=== PATIENT | female | born 1985 | race Caucasian/White ===

== ENCOUNTER 2019-09-27 17:09 | Emergency (ER) | payer OTHER, SELFPAY ==
--- NOTE | 2019-09-27 17:17 | ED.BACK ---
HPI - Back Pain/Injury General Chief Complaint: Urogenital-Female Stated Complaint: Lower back pain Time Seen by Provider: 09/27/19 17:17 Source: patient and RN notes reviewed History of Present Illness HPI Narrative: Patient is a 34-year-old female presents the urgent care with complaints of bilateral low back pain and blood when she wipes. Patient states she is noticed it for the past 3 days. Denies any urinary symptoms such as frequency, urgency, pain with urination. Denies any fever, chills, nausea, vomiting, abdominal pain. 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 Patient states that since the tumor had been removed she has not had chronic urinary tract infections. Patient states she also has irregular periods and attributed the bleeding to a possible period. However, patient states that there is nothing on the tampons that she is using. No other acute complaints. No acute distress noted. Patient read the plan of care. Related Data Home Medications Medication Instructions Recorded Confirmed albuterol sulfate [ProAir HFA] 2 inh INHALATION 4-6XD PRN 08/02/19 08/02/19 clonazepam [Klonopin] 1 mg PO TID 08/02/19 08/02/19 venlafaxine [Effexor XR] 75 mg PO DAILY 08/02/19 08/02/19 Allergies Allergy/AdvReac Type Severity Reaction Status Date / Time Sulfa (Sulfonamide Allergy Unknown Hives Verified 09/27/19 17:22 Antibiotics) Review of Systems Review of Systems: Narrative: CONSTITUTIONAL: Denies fever, chills, or sweats. EYES: Denies visual changes, redness, or discharge. ENT: Denies rhinorrhea, congestion, sore throat, or otalgia. CARDIOVASCULAR: Denies chest pain, palpitations, or edema. RESPIRATORY: Denies cough or dyspnea. GASTROINTESTINAL: Denies abdominal pain, nausea, vomiting, or diarrhea. GENITOURINARY: Reports of blood when wiping SKIN: Denies rash or itching. MUSCULOSKELETAL: Reports of lateral low back pain NEUROLOGIC: Denies headache, numbness, or weakness. PMFSH Social History Social History Gender identity (if verbalized by the patient): Female Comments At the time of my signature, I reviewed and agree with the nursing past medical, surgical, social, and family history. There is no relevant family history pertinent to the patient complaint. Exam Narrative: Exam Narrative: GENERAL: This is a well-nourished, well-developed patient, in no apparent distress. HEAD: normocephalic, atraumatic. EYES: PERRL. Sclera clear/white. Vision is grossly intact. EARS: External ears normal NOSE: External nose normal with no obvious nasal discharge THROAT: Mucous membranes moist NECK: Neck supple CARDIOVASCULAR: Regular rate and rhythm without murmurs, gallops, or rubs. RESPIRATORY: Clear to auscultation. Breath sounds equal bilaterally. No wheezes, rales, or rhonchi. SKIN: warm, intact with no suspicious lesions or rash, good texture and turgor. NEURO: awake, alert, and oriented to person, place and time. There were no obvious focal neurologic abnormalities. EXTREMITIES: No clubbing, cyanosis, or edema. BACK: Nontender without deformity or crepitance. No flank tenderness. Course Vital Signs Vital signs: Vital Signs Temperature 99.9 F H 09/27/19 17:21 Pulse Rate 86 09/27/19 17:21 Respiratory Rate 16 09/27/19 17:21 Blood Pressure 139/89 09/27/19 17:21 Pulse Oximetry 98 09/27/19 17:21 Temperature 99.9 F H 09/27/19 17:21 Pulse Rate 86 09/27/19 17:21 Respiratory Rate 16 09/27/19 17:21 Blood Pressure 139/89 09/27/19 17:21 Pulse Oximetry 98 09/27/19 17:21 Reviewed MDM - Back Pain/Injury MDM Narrative Medical decision making narrative: Reviewed lab results with the patient. She is aware that urine analysis only showed a trace amount of blood without obvious infection. Explained to the patient that our facility is unable to co
[2019-09-27 17:21] VITALS: BP 139/89; PULSE 86; RESP 16; TEMP 37.7; O2SAT 98
== END 2019-09-27 17:35 | disposition home or self-care (01) ==
PROVIDERS: Emergency Provider Nurse Practitioner Family
DX: R31.9 Hematuria, unspecified (principal); J45.909 Unspecified asthma, uncomplicated; F41.9 Anxiety disorder, unspecified; F32.9 Major depressive disorder, single episode, unspecified
CPT/HCPCS: 81003; 99212; G0463

== ENCOUNTER 2019-10-09 03:21 | Emergency (ER) | payer SELFPAY ==
--- NOTE | ~2019-10-09 | XR_ITS ---
EXAMINATION: XR elbow LT min 3V, XR wrist LT min 3V, XR forearm LT 2V DATE: 10/09/2019 03:56 INDICATION: Posttraumatic bruising at the left elbow and pain at the left wrist. TECHNIQUE: 1. Anteroposterior, two oblique and lateral views of the elbow were obtained. 2. Frontal and lateral views of the left forearm were obtained. 3. PA, lateral, oblique and navicular views of the left wrist were obtained. COMPARISON: None. FINDINGS: Alignment is normal at the left wrist, forearm and elbow. No fracture. Joint spaces are normal. No le ft elbow joint effusion. Soft tissues are unremarkable. IMPRESSION: 1. Negative left wrist, forearm and elbow radiographs. Reviewed, dictated and finalized at location A. ITIONAL YEAST SUPERVISOR IMPRESSION: 1. Negative left wrist, forearm and elbow radiographs. IMPRESSION: 1. Negative left wrist, forearm and elbow radiographs.
[2019-10-09 03:26] VITALS: BP 131/84; PULSE 87; RESP 18; TEMP 36.1; O2SAT 100
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
== END 2019-10-09 04:20 | disposition home or self-care (01) ==
LOC: ANHED 04:04
PROVIDERS: Emergency Provider Emergency Medicine
DX: S66.912A Strain of unspecified muscle, fascia and tendon at wrist and hand level, left hand, initial encounter (principal); S63.502A Unspecified sprain of left wrist, initial encounter; S56.912A Strain of unspecified muscles, fascia and tendons at forearm level, left arm, initial encounter; W22.8XXA Striking against or struck by other objects, initial encounter; J45.909 Unspecified asthma, uncomplicated; F17.210 Nicotine dependence, cigarettes, uncomplicated
CPT/HCPCS: 73080; 73090; 73110; 99284; A9270

== ENCOUNTER 2020-03-01 13:14 | Emergency (ER) | payer OTHER, SELFPAY ==
--- NOTE | ~2020-03-01 | XR_ITS ---
EXAMINATION: XR hand LT min 3V DATE: 03/01/2020 13:33 INDICATION: Left hand injury TECHNIQUE: Posteroanterior, oblique and lateral views of the left hand were obtained. COMPARISON: None. FINDINGS: Oblique extra-articular fracture at the proximal diaphysis of the left fourth metacarpal with 3 mm po sterior displacement and approximately 10 degrees palmar angulation. There also appears to be a coupl e millimeter of proximal migration and overriding resulting in a similar degree of relative shortenin g of the metacarpal. No other fractures identified. Joint spaces are normal. Soft tissue swelling abo ut the hand. IMPRESSION: 1. Mildly displaced and angulated extra-articular fracture of the fourth metacarpal diaphysis. Reviewed, dictated and finalized at location A. IMPRESSION: 1. Mildly displaced and angulated extra-articular fracture of the fourth metaca rpal diaphysis.
[2020-03-01 13:15] VITALS: BP 123/83; PULSE 92; RESP 20; TEMP 36.9; O2SAT 100
--- NOTE | 2020-03-01 13:45 | ED.UPPEXIN ---
HPI - Extremity Injury (Upper) General Chief Complaint: Extremity Injury, Upper Stated Complaint: L hand injury Time Seen by Provider: 03/01/20 13:27 Source: patient Mode of arrival: ambulatory Limitations: no limitations History of Present Illness HPI narrative: This is a 34-year-old female presents emergency department for left hand injury last night. Reports she was moving some boxes off of the top shelf and 1 of them fell and landed on her left hand. Reports since she has had pain in the last 3 fingers and into the hand. Reports decreased range of motion due to pain. Denies numbness. Related Data Home Medications Medication Instructions Recorded Confirmed clonazepam [Klonopin] 1 mg PO TID 08/02/19 09/27/19 venlafaxine [Effexor XR] 75 mg PO DAILY 08/02/19 09/27/19 Allergies Allergy/AdvReac Type Severity Reaction Status Date / Time Sulfa (Sulfonamide Allergy Unknown Hives Verified 03/01/20 13:38 Antibiotics) Review of Systems Review of Systems: Narrative: CONSTITUTIONAL: Denies fever MUSCULOSKELETAL: Reports joint pain, and myalgia. NEUROLOGIC: Denies numbness All systems reviewed & are unremarkable except as noted in HPI and below PMFSH Past Medical History Medical History (Updated 03/01/20 @ 14:39 by Annie Stevenson PA-C) Asthma History of depression Surgical History Surgical History (Updated 10/09/19 @ 03:38 by Kenzie Landon MD) H/O oophorectomy Social History Social History (Updated 10/09/19 @ 03:38 by Kenzie Landon MD) Smoking status: Current every day smoker Tobacco type: cigarettes Alcohol intake: never Substance use: never Gender identity (if verbalized by the patient): Female Exam Narrative: Exam Narrative: GENERAL: Well-appearing, well-nourished, and in no acute distress. HEAD: Normocephalic, atraumatic. EYES: EOMI. EXTREMITIES: Moderate edema to the left third, fourth and fifth metacarpals. Decreased ROM in the left 3rd-5th fingers due to pain SKIN: Warm, dry, no rash. NEURO: No focal deficits. Alert and oriented x3. PSYCH: Normal mood and affect Course Consultations Consultation #1: Spoke with Dr. Bangura about patient work-up. Would like patient placed in an Braxton wrap and will follow-up with patient in clinic. Date: 03/01/20 Time: 14:40 Vital Signs Vital signs: Vital Signs Temperature 98.4 F 03/01/20 13:15 Pulse Rate 92 03/01/20 13:15 Respiratory Rate 20 03/01/20 13:15 Blood Pressure 123/83 03/01/20 13:15 Pulse Oximetry 100 03/01/20 13:15 Temperature 98.4 F 03/01/20 13:15 Pulse Rate 92 03/01/20 13:15 Respiratory Rate 03/01/20 13:15 Blood Pressure 123/83 03/01/20 13:15 Pulse Oximetry 100 03/01/20 13:15 MDM - Extremity Injury (Upper) MDM Narrative Medical decision making narrative: Patient presents the emergency department for left hand pain after an injury last night. Patient is neurovascularly intact. Left hand x-ray shows mildly displaced and angulated extra-articular fracture of the fourth metacarpal diaphysis. Spoke with Dr. Bangura about patient work-up. Would like patient placed in an Braxton wrap and will follow-up with patient in clinic. Patient was given warnings to return to the ER Imaging Data Radiologist's impression: ITS Impressions Hand X-Ray 03/01/20 13:43 IMPRESSION: 1. Mildly displaced and angulated extra-articular fracture of the fourth metacarpal diaphysis. Critical Care Time Critical Care Time Critical Care Time: No Discharge Plan Discharge Clinical Impression: Closed displaced fracture of fourth metacarpal bone of left hand Qualifiers: Encounter type: initial encounter Metacarpal location: shaft Qualified Code(s): S62.325A - Displaced fracture of shaft of fourth metacarpal bone, left hand, initial encounter for closed fracture Patient Disposition: Home, Self-Care Condition: Stable Instructions: Hand Fracture (ED) Additional Instructions: Return to th
[2020-03-01 15:06] VITALS: TEMP 36.9
== END 2020-03-01 15:08 | disposition home or self-care (01) ==
PROVIDERS: Emergency Provider Emergency Medicine
DX: S62.325A Displaced fracture of shaft of fourth metacarpal bone, left hand, initial encounter for closed fracture (principal); J45.909 Unspecified asthma, uncomplicated; F32.9 Major depressive disorder, single episode, unspecified; F17.210 Nicotine dependence, cigarettes, uncomplicated; W20.8XXA Other cause of strike by thrown, projected or falling object, initial encounter
CPT/HCPCS: 73130; 99284; A9270

== ENCOUNTER 2020-03-05 00:41 | Outpatient (CLI) | payer OTHER, SELFPAY ==
[2020-03-05 19:17] LABS: SARS-CoV-2 RNA PCR Negative
== END 2020-03-05 00:42 | disposition home or self-care (01) ==
LOC: ANHCOVIDDT 00:42
PROVIDERS: Visit Provider Plastic Surgery
DX: Z01.812 Encounter for preprocedural laboratory examination (principal); Z11.59 Encounter for screening for other viral diseases
CPT/HCPCS: 87635; C9803; U0003

== ENCOUNTER 2020-03-07 02:16 | Day surgery (SDC) | payer OTHER, SELFPAY ==
[2020-03-04 14:01] VITALS: BMI 36.9
--- NOTE | 2020-03-06 20:08 | HP_ITS ---
DATE OF SERVICE: 03/07/2020 PREOPERATIVE DIAGNOSIS: Displaced midshaft closed fracture of the left 4th metacarpal. HISTORY: The patient is 34. She is referred to me from [facility] where she was seen on 02/29/2020 after a box fell onto her left hand causing her oblique or spiral fracture of the shaft. She demonstrates some rotation in active flexion and we discussed that at some length. She is aware this fracture may well heal if left alone, and she may do fine, but she will probably have a rotatory deformity. She has 5 small children at her home and has an outside job as well and would like to get this fixed so that she can carry on with her multiple responsibilities. ALLERGIES: REVEALS SHE HAS AN ALLERGY TO SULFA. MEDICATIONS: Current medications include: 1. Effexor. 2. Klonopin. 3. Albuterol. PAST MEDICAL HISTORY: She had an exploratory laparotomy in 2000. She is a smoker and has some asthma. FAMILY HISTORY: Noncontributory. SOCIAL HISTORY: She lives in [place]. She works for [employer]. PHYSICAL EXAMINATION: GENERAL: She is alert, informative, cooperative, 5 feet 9 inches, 250-pound female. HEENT: Unremarkable. CHEST: Clear to auscultation. HEART: Regular rate and rhythm by palpation. ABDOMEN: Soft, nontender. EXTREMITIES: Reveals the tenderness and swelling and some slight rotation deformity of the left ring finger and on the left hand. ASSESSMENT: Displaced fracture, left 4th metacarpal. PLAN: Open reduction and internal fixation with screws under general anesthesia. Sharla I MT: Petrona FELIPE
[2020-03-07] VITALS (8 sets, daily range): BP systolic 131–152; BP diastolic 80–100; PULSE 50–92; RESP 12–22; TEMP 36.1–36.4; O2SAT 92–100
--- NOTE | ~2020-03-07 | XR_ITS ---
EXAMINATION: XR surgery orthopedic DATE: 03/07/2020 12:11 INDICATION: Right calf left fourth metacarpal fracture TECHNIQUE: 4 fluoroscopic spot images of the left hand were obtained during procedure performed by Dr Max Bangura. Radiologist was not present for the imaging or procedure. The amount of fluoroscopy time use d during this procedure was 1.1 minutes. COMPARISON: 03/01/2020 FINDINGS: Initial image is again seen a mildly displaced and angulated oblique extra articular fracture of the proximal to mid diaphysis of the left fourth metacarpal. Subsequent images demonstrate reduction of t he fracture to essentially anatomic alignment and fixation with 2 screws. Expected small amount of ga s at the operative bed. IMPRESSION: 1. Near-anatomic alignment post open reduction and screw fixation of a diaphyseal fracture of the lef t fourth metacarpal. Reviewed, dictated and finalized at location A. IMPRESSION: 1. Near-anatomic alignment post open reduction and screw fixation of a diaphyse al fracture of the left fourth metacarpal.
--- NOTE | 2020-03-07 07:21 | WPDHPUPDATE1 ---
History and Physical Update Update Date/Time: 03/07/20 07:21 History and Physical has been reviewed, including an updated exam of the patient. There are NO changes in the patient's condition. Risks, benefits, and alternatives have been discussed and questions answered. Patient agrees to proceed with procedure.
--- NOTE | 2020-03-07 08:09 | WPDANESEPPF ---
Anes - Initial Pre Proc Eval Procedure: Operation Date: 03/07/20 09:45 Proposed Procedures p Open Reduction Internal Fixation Left Fourth Metacarpal With Screws - Joni Bangura MD Date/Time: 03/07/20 08:09 Surgeon: Joni Bangura MD Pre Op Diagnosis: Fracture Left 4th Metacarpal Patient Data Age: 34 Gender: F Height: 5 ft 9 in Weight: 109.5 kg Allergies Allergy/AdvReac Type Severity Reaction Status Date / Time Sulfa (Sulfonamide Allergy Mild Hives Verified 03/07/20 07:54 Antibiotics) Home Medications Medication Instructions Recorded Confirmed Type albuterol sulfate 2 puff INHALATION QID PRN #8.5 gm 08/02/19 03/07/20 Rx clonazepam [Klonopin] 1 mg PO TID 08/02/19 03/07/20 History venlafaxine [Effexor XR] 75 mg PO DAILY 08/02/19 03/07/20 History hydrocodone-acetaminophen 1 tablet PO Q6H PRN #20 tablet 03/01/20 03/07/20 Rx Patient hx anesthesia problems: none Family hx anesthesia problems: none PMFSH Past Medical History Medical History Anxiety Asthma History of depression Surgical History Surgical History H/O oophorectomy Social History Social History Smoking packs per day: 0.5 Smoking cigarettes per day: 10.0 Years smoked: 20 Smoking pack-years: 10.00 Smoking status: Current every day smoker Tobacco type: cigarettes Alcohol intake: never Substance use: never Substance use type: marijuana Last use: 03/01/2020 Gender identity (if verbalized by the patient): Female Spiritual care concerns: No Anes - Eval Final PreProcedure Day of Procedure 03/07/20 08:09 Patient weight: obese Heart: regular rate and rhythm Lungs: decreased breath sounds Airway: Mallampati scale class II Neurological: alert and oriented Last oral intake: >/= 8 hours ASA classification: III Emergent: no Anesthetic plan: proceed Anesthesia type and monitoring: general LMA and standard monitoring Informed Consent: The patient's anesthetic plan and its attendant risks and benefits were discussed with the patient/family/POA. Questions were solicited and answers provided to the satisfaction of the patient/family/POA.
[2020-03-07] MEDS: LACTATED RINGERS 1,000 ML 30 ML IV CONT ×3 (08:15→12:51)
--- NOTE | 2020-03-07 09:56 | SUR.PREOP ---
Discussed delay with patient. Voices understanding. No needs at present.
--- NOTE | 2020-03-07 10:30 | WPDHPUPDATE1 ---
History and Physical Update Update Date/Time: 03/07/20 10:30 History and Physical has been reviewed, including an updated exam of the patient. There are NO changes in the patient's condition. Risks, benefits, and alternatives have been discussed and questions answered. Patient agrees to proceed with procedure.
[2020-03-07] MEDS: ceFAZolin 2 GM/D5W 50 ML 2 GM/50 ML BAG IVPB (10:49)
[2020-03-07] MEDS: BACITRACIN OINTMENT 15 GM TUBE 1 APPLIC TOPICAL (11:26)
[2020-03-07] MEDS: LIDO 1%/EPINEPHRINE 1:100,000 20 ML VIAL 10 ML INFILTRATE (11:26)
--- NOTE | 2020-03-07 12:23 | PM.OP ---
Procedure Note - Brief Procedure Note - Brief Date of procedure: 03/07/20 Pre-op diagnosis: Fracture Left 4th Metacarpal Post-op diagnosis: same Procedure performed: ORIF of left 4th metacarpal fx with 2 lag screws Implants: 1.3 x 8 mm and 1.5 x 10 mm lag screw from Mod Hand Set. Surgeon: Joni Bangura MD Estimated blood loss (mL): 5 Tourniquet time (min): 30 Drains: No Packing: No Pathology: none sent Complications: No immediate complications Condition: stable Disposition: PACU
--- NOTE | 2020-03-07 14:54 | PM.PROC ---
Procedure Note - Detailed Date of procedure: 03/07/20 Pre-op diagnosis: Fracture Left 4th Metacarpal Post-op diagnosis: same Procedure performed: open reduction with internal lag screw fixation of displaced left 4th metacarpal shaft fracture Description of procedure: the appropriate hand and location were marked on the patient in the holding area. She was taken to the operating room and placed supine on the operating table. A time-out was held and confirmed. She was administered general endotracheal anesthesia. The extremity was prepped and draped in the usual fashion. The C-arm was brought in and the fracture site identified and the skin marked accordingly for access incision. This area was infiltrated widely with 1% lidocaine with epinephrine. The tourniquet was inflated to 250 mmHg. The incision was made as marked and access was carried between extensor tendon slips to the 4th metacarpal. Care was taken to preserve cutaneous nerves. The periosteum was incised and the fracture fully visualized. The fracture was freed of clot material reduction was fairly easily reduced and a clamp was applied. 2 screws were placed perpendicular to the fracture line both screws were placed in lag screw fashion, the distal 1 is 1.3 by 8 mm, the proximal 1 is 1.5 x 10 mm. These are from the modular hand set. We will careful to ensure there was no rotational deformity. C-arm images were made to confirm the adequacy of screw placement. The wound was closed in several layers with 4-0 Monocryl suture. The tourniquet was released prior to wound closure. A bulky hand dressing was applied without splint leaving the fingers free to move. The patient had been given 2 g of Ancef preop. No additional local anesthetic was given. She was discharged with instructions in wound care and follow-up and supplied with a prescription for hydrocodone 5 14. Surgeon: Joni Bangura MD Multiple Spindle Screw Machine Operator: Amy Powers Estimated blood loss (mL): 5 Tourniquet time (min): 30 Drains: No Packing: No Pathology: none sent Complications: No immediate complications Condition: stable Disposition: PACU
== END 2020-03-07 14:30 | disposition home health service (06) ==
PROVIDERS: Visit Provider Plastic Surgery
PROC: (CPT 26615; principal; 2020-03-07 09:45)
DX: S62.325A Displaced fracture of shaft of fourth metacarpal bone, left hand, initial encounter for closed fracture (principal); W20.8XXA Other cause of strike by thrown, projected or falling object, initial encounter; J45.909 Unspecified asthma, uncomplicated; F41.9 Anxiety disorder, unspecified; F17.210 Nicotine dependence, cigarettes, uncomplicated; F12.90 Cannabis use, unspecified, uncomplicated; E66.9 Obesity, unspecified; Z68.35 Body mass index [BMI] 35.0-35.9, adult
CPT/HCPCS: 26615; A9270; C1713; J0131; J0690; J1100; J2250; J2405; J2704; J3010; J7120

== ENCOUNTER 2020-07-09 15:20 | Emergency (ER) | payer OTHER, SELFPAY ==
[2020-07-09 15:26] VITALS: BP 149/95; PULSE 89; RESP 16; O2SAT 98
--- NOTE | 2020-07-09 15:38 | ED.GENADULT ---
HPI - General Adult General Chief complaint: Upper Respiratory Infection Stated complaint: Ear Pain,Cough Time Seen by Provider: 07/09/20 15:38 Source: patient and RN notes reviewed Mode of arrival: ambulatory Limitations: no limitations History of Present Illness HPI narrative: 34-year-old female presents with complains of dry cough with chest congestion for the past 4 days. Symptoms increased over the past 48 hours with bilateral otalgia. Cold and flu medication and Tylenol (last this morning at 08:00) without relief. History of Asthma and Bronchitis. Constant dry cough with intermittent productive cough (white-brown phlegm). Rhinorrhea and nasal congestion. Denies sore throat. Denies drainage, decrease hearing, or tinnitus. Denies injury to ear. No high fevers, drooling, neck or throat swelling. No chest pain, or wheezing. No exacerbation factors. Denies nausea, vomiting, and abdominal pain. Tolerating liquids well. The patient reports she have not been diagnosed with COVID-19. The patient reports she is not waiting for the results of a COVID-19 lab test. The patient reports she do not have chills, weakness, or fatigue. The patient reports she do not have a worsening cough or shortness of breath. Denies chest pain. The patient reports she do not have any sore throat, loss of taste, and diarrhea. Denies recent traveling. Denies concerns for COVID-19 or exposures been home with limited outdoor exposure except for essential household needs and return home. At this time, patient is not suspected of having COVID-19. Some parts of this dictation were generated by voice recognition software and may contain typographical and/or grammatical inaccuracies. Related Data Home Medications Medication Instructions Recorded Confirmed clonazepam [Klonopin] 1 mg PO TID 08/02/19 03/07/20 venlafaxine [Effexor XR] 75 mg PO DAILY 08/02/19 03/07/20 albuterol sulfate INHALATION 07/09/20 budesonide-formoterol [Symbicort] INHALATION 07/09/20 dicyclomine mg 07/09/20 famotidine 07/09/20 fenofibrate mg 07/09/20 montelukast mg 07/09/20 Allergies Allergy/AdvReac Type Severity Reaction Status Date / Time Sulfa (Sulfonamide Allergy Mild Hives Verified 03/07/20 07:54 Antibiotics) Review of Systems Review of Systems: Narrative: CONSTITUTIONAL: Denies fever, chills, sweats. EYES: Denies visual changes, redness, discharge. ENT: Denies sore throat. Complains of rhinorrhea, congestion, bilateral otalgia. CARDIOVASCULAR: Denies chest pain, palpitations, edema. RESPIRATORY: Denies dyspnea, wheezing. Complains of chest congestion, dry cough with intermittent productive cough. GASTROINTESTINAL: Denies abdominal pain, nausea, vomiting, diarrhea. GENITOURINARY: Denies dysuria, hematuria, abnormal discharge. SKIN: Denies rash or itching. MUSCULOSKELETAL: Denies acute back pain, joint pain, or myalgia. NEUROLOGIC: Denies numbness or focal weakness. PSYCHIATRIC: Denies anxiety or depression. All systems reviewed & are unremarkable except as noted in HPI and below PMFSH Past Medical History Medical History (Updated 07/10/20 @ 00:00 by Anson Cummings) Anxiety Asthma Bronchitis History of depression Surgical History Surgical History (Updated 07/09/20 @ 19:46 by AVELINA Manriquez) H/O oophorectomy History of hand surgery Left March 2020 Family History Family History (Updated 07/09/20 @ 19:46 by AVELINA Manriquez) Father Pancreatic cancer Mother Hypertension Diabetes mellitus Social History Social History (Updated 07/12/20 @ 14:36 by AVELINA Manriquez) Smoking packs per day: 0.5 Smoking cigarettes per day: 10.0 Years smoked: 20 Smoking pack-years: 10.00 Smoking status: Former smoker Tobacco type: cigarettes Second hand tobacco smoke exposure: No Smoking end date: 05/30/20 Alcohol intake: never Substance use: never Substance use type: marijuana [place]
== END 2020-07-09 16:04 | disposition home or self-care (01) ==
PROVIDERS: Emergency Provider Nurse Practitioner Family; PCP Family Medicine
DX: J40 Bronchitis, not specified as acute or chronic (principal); H66.002 Acute suppurative otitis media without spontaneous rupture of ear drum, left ear; Z20.828 Contact with and (suspected) exposure to other viral communicable diseases; F17.210 Nicotine dependence, cigarettes, uncomplicated; F41.9 Anxiety disorder, unspecified; F32.9 Major depressive disorder, single episode, unspecified
CPT/HCPCS: 99213; G0463

== ENCOUNTER 2020-07-11 08:03 | Outpatient (NON) | payer OTHER, SELFPAY ==
[2020-07-12 00:44] LABS: SARS-CoV-2 RNA PCR Negative
== END 2020-07-11 08:04 ==
LOC: ANHCOVIDDT 08:04
PROVIDERS: PCP Family Medicine; Visit Provider Nurse Practitioner Family
DX: Z20.828 Contact with and (suspected) exposure to other viral communicable diseases (principal)
CPT/HCPCS: 87635; C9803; U0003

== ENCOUNTER 2020-12-22 09:43 | Emergency (ER) | payer OTHER, SELFPAY ==
[2020-12-22 09:55] VITALS: BP 137/95; PULSE 77; RESP 16; TEMP 37.4; O2SAT 99
--- NOTE | 2020-12-22 10:02 | ED.EAR ---
HPI - Ear Problem General Chief complaint: Ear Stated complaint: RIGHT EAR PAIN Time Seen by Provider: 12/22/20 10:02 Source: patient Mode of arrival: ambulatory Limitations: no limitations History of Present Illness HPI Narrative: Kristi Chicas is a 35 yo female with a PMH of asthma and GERD who comes to [facility] with complaints of sinus congestion and right ear pain. She was treated for respiratory symptoms by her primary care physician with steroids and an antibiotic that started 10 days ago and although she is about to complete the antibiotic and steroids is complaining of increased pain in her right ear Related Data Home Medications Medication Instructions Recorded Confirmed venlafaxine [Effexor XR] 75 mg PO DAILY 08/02/19 12/22/20 albuterol sulfate 90 mcg INHALATION DIRECTED 07/09/20 12/22/20 budesonide-formoterol [Symbicort] 160 inh INHALATION PRN 07/09/20 12/22/20 dicyclomine 20 mg PO QID 07/09/20 12/22/20 famotidine 20 mg PO DAILY 07/09/20 12/22/20 fenofibrate 160 mg PO HS 07/09/20 12/22/20 montelukast 10 mg PO DAILY 07/09/20 12/22/20 clonazepam 1 mg PO TID 12/22/20 12/22/20 Allergies Allergy/AdvReac Type Severity Reaction Status Date / Time Sulfa (Sulfonamide Allergy Mild Hives Verified 12/22/20 09:59 Antibiotics) Review of Systems Review of Systems: Narrative: CONSTITUTIONAL: Denies fever, chills, sweats. EYES: Denies visual changes, redness, discharge. ENT: Denies rhinorrhea, has congestion, sore throat, right otalgia. CARDIOVASCULAR: Denies chest pain, palpitations, edema. RESPIRATORY: Denies dyspnea, wheezing, cough GASTROINTESTINAL: Denies abdominal pain, nausea, vomiting, diarrhea. GENITOURINARY: Denies dysuria, hematuria, abnormal discharge SKIN: Denies rash or itching. NEUROLOGIC: Denies numbness, or focal weakness. PSYCHIATRIC: Denies anxiety or depression. [facility] Past Medical History Medical History Anxiety Asthma Bronchitis History of depression Surgical History Surgical History H/O oophorectomy History of hand surgery Left March 2020 Family History Family History Father Pancreatic cancer Mother Hypertension Diabetes mellitus Social History Social History (Updated 12/22/20 @ 10:17 by Myra Pearson CNP) Smoking packs per day: 0.5 Smoking cigarettes per day: 10.0 Years smoked: 20 Smoking pack-years: 10.00 Smoking status: Current every day smoker Tobacco type: cigarettes Second hand tobacco smoke exposure: No Smoking end date: 05/30/20 Alcohol intake: never Substance use: current Substance use type: marijuana Last use: 03/01/2020 Gender identity (if verbalized by the patient): Female Spiritual care concerns: No Comments At time of signature, I agree with nursing past medical, surgical, social and family history. There is no relevant family history pertinent to the presenting complaint. Blood pressure is elevated, she has intermittent high blood pressure and has been stopped from donating blood for the same reason, she must see her PCP this week Exam Narrative: Exam Narrative: GENERAL: This is a well-nourished, well-developed patient, in mild distress. HEAD: normocephalic, atraumatic. EYES: Sclera clear/white. Vision is grossly intact. EARS: External ears normal, auditory canals erythema with small amount drainage on L, TMs normal without perforation. Hearing grossly intact. NOSE: External nose normal without nasal discharge, nares without redness, no rhinorrhea. THROAT: Mucous membranes moist, posterior pharynx mild erythema NECK: Neck supple, non-tender CARDIOVASCULAR: Regular rate and rhythm without murmurs, gallops, or rubs. RESPIRATORY: Coarse to auscultation. Breath sounds equal bilaterally. No wheezes, rales, or rhonchi. GASTROINTESTINAL: Abdomen s
[2020-12-22 10:04] VITALS: BP 137/95; PULSE 77; RESP 16; TEMP 37.4; O2SAT 99
== END 2020-12-22 10:30 | disposition home or self-care (01) ==
PROVIDERS: Emergency Provider Nurse Practitioner; PCP Family Medicine
DX: H66.003 Acute suppurative otitis media without spontaneous rupture of ear drum, bilateral (principal); F17.210 Nicotine dependence, cigarettes, uncomplicated; J45.909 Unspecified asthma, uncomplicated; F41.9 Anxiety disorder, unspecified; F32.9 Major depressive disorder, single episode, unspecified
CPT/HCPCS: 99213; G0463

== ENCOUNTER 2021-02-08 15:02 | Emergency (ER) | payer OTHER, SELFPAY ==
[2021-02-08 15:15] VITALS: BP 139/87; PULSE 86; RESP 16; TEMP 37.6; O2SAT 98
--- NOTE | 2021-02-08 15:35 | ED.FEMALEGU ---
HPI - Female Genitourinary General Chief complaint: Urogenital-Female Stated complaint: Cyst on Vaginal Area Time Seen by Provider: 02/08/21 15:35 Source: patient Mode of arrival: ambulatory Limitations: no limitations History of Present Illness HPI Narrative: Kristi Chicas is a 35 yo female with a PMH of asthma, high cholesterol, anxiety, depression, comes [facility] with abscess to the right labial lip. States started a few days ago with this is a recurrence of her she has had multiple problems with abscesses in the genital area. Landed on using she razors over again. She is also allergic to Bactrim so she cannot get optimal treatment for these abscesses Discussed her throwing away razors after 1 use Related Data Home Medications Medication Instructions Recorded Confirmed venlafaxine [Effexor XR] 75 mg PO DAILY 08/02/19 12/22/20 albuterol sulfate 90 mcg INHALATION DIRECTED 07/09/20 12/22/20 budesonide-formoterol [Symbicort] 160 inh INHALATION PRN 07/09/20 12/22/20 dicyclomine 20 mg PO QID 07/09/20 12/22/20 famotidine 20 mg PO DAILY 07/09/20 12/22/20 fenofibrate 160 mg PO HS 07/09/20 12/22/20 montelukast 10 mg PO DAILY 07/09/20 12/22/20 clonazepam 1 mg PO TID 12/22/20 12/22/20 Allergies Allergy/AdvReac Type Severity Reaction Status Date / Time Sulfa (Sulfonamide Allergy Mild Hives Verified 12/22/20 09:59 Antibiotics) Review of Systems Review of Systems: Narrative: CONSTITUTIONAL: Denies fever, chills, sweats. EYES: Denies visual changes, redness, discharge. ENT: Denies rhinorrhea, congestion, sore throat, otalgia. CARDIOVASCULAR: Denies chest pain, palpitations, edema. RESPIRATORY: Denies dyspnea, wheezing, cough GASTROINTESTINAL: Denies abdominal pain, nausea, vomiting, diarrhea. GENITOURINARY: Denies dysuria, hematuria, abnormal discharge. Abscess to right labia SKIN: Denies rash or itching. NEUROLOGIC: Denies numbness, or focal weakness. PSYCHIATRIC: Denies anxiety or depression. [facility] Past Medical History Medical History Anxiety Asthma Bronchitis High cholesterol History of depression HTN (hypertension) Surgical History Surgical History H/O oophorectomy History of hand surgery Left March 2020 Family History Family History Father Pancreatic cancer Mother Hypertension Diabetes mellitus Social History Social History Smoking packs per day: 0.5 Smoking cigarettes per day: 10.0 Years smoked: 20 Smoking pack-years: 10.00 Smoking status: Current every day smoker Tobacco type: cigarettes Second hand tobacco smoke exposure: No Smoking end date: 05/30/20 Alcohol intake: never Substance use: current Substance use type: marijuana Last use: 03/01/2020 Gender identity (if verbalized by the patient): Female Spiritual care concerns: No Exam Narrative: Exam Narrative: GENERAL: This is a well-nourished, well-developed patient, in mild distress. HEAD: normocephalic, atraumatic. EYES: Sclera clear/white. Vision is grossly intact. EARS: External ears normal, . Hearing grossly intact. NOSE: External nose normal without nasal discharge, nares without redness, no rhinorrhea. THROAT: Mucous membranes moist, NECK: Neck supple, CARDIOVASCULAR: Regular rate and rhythm without murmurs, gallops, or rubs. RESPIRATORY: Clear to auscultation. Breath sounds equal bilaterally. No wheezes, rales, or rhonchi. GASTROINTESTINAL: Abdomen soft, non-tender, SKIN: warm, intact with abscess to right labial lip with swelling,tender, indurated but not fluctuant; has white pustule NEURO: awake, alert, and oriented to person, place and time. There were no obvious focal neurologic abnormalities. Steady gait EXTREMITIES: Normal range of motion. BACK: Nontender
--- NOTE | 2021-02-08 15:56 | ED.SKABFB ---
HPI - Skin/Abscess/Foreign Bdy General Chief complaint: Urogenital-Female Stated complaint: Cyst on Vaginal Area Time Seen by Provider: 02/08/21 15:35 Source: patient Mode of arrival: ambulatory Limitations: no limitations History of Present Illness HPI narrative: Kristi Chicas is a 35-year-old female with a history of hypertension, seasonal allergies, depression, GERD, who comes to [facility] with complaints of a vaginal abscess that has been getting more sore for the last 4 to 5 days there is one small area that has a sullivan in the vaginal area Related Data Home Medications Medication Instructions Recorded Confirmed venlafaxine [Effexor XR] 75 mg PO DAILY 08/02/19 12/22/20 albuterol sulfate 90 mcg INHALATION DIRECTED 07/09/20 12/22/20 budesonide-formoterol [Symbicort] 160 inh INHALATION PRN 07/09/20 12/22/20 dicyclomine 20 mg PO QID 07/09/20 12/22/20 famotidine 20 mg PO DAILY 07/09/20 12/22/20 fenofibrate 160 mg PO HS 07/09/20 12/22/20 montelukast 10 mg PO DAILY 07/09/20 12/22/20 clonazepam 1 mg PO TID 12/22/20 12/22/20 Allergies Allergy/AdvReac Type Severity Reaction Status Date / Time Sulfa (Sulfonamide Allergy Mild Hives Verified 12/22/20 09:59 Antibiotics) Review of Systems Review of Systems: Narrative: CONSTITUTIONAL: Denies fever, chills, sweats. EYES: Denies visual changes, redness, discharge. ENT: Denies rhinorrhea, congestion, sore throat, otalgia. CARDIOVASCULAR: Denies chest pain, palpitations, edema. RESPIRATORY: Denies dyspnea, wheezing, cough GASTROINTESTINAL: Denies abdominal pain, nausea, vomiting, diarrhea. GENITOURINARY: Denies dysuria, hematuria, abnormal discharge; labial abscess SKIN: Denies rash or itching. NEUROLOGIC: Denies numbness, or focal weakness. PSYCHIATRIC: Denies anxiety or depression. [facility] Past Medical History Medical History Anxiety Asthma Bronchitis High cholesterol History of depression HTN (hypertension) Surgical History Surgical History H/O oophorectomy History of hand surgery Left March 2020 Family History Family History Father Pancreatic cancer Mother Hypertension Diabetes mellitus Social History Social History Smoking packs per day: 0.5 Smoking cigarettes per day: 10.0 Years smoked: 20 Smoking pack-years: 10.00 Smoking status: Current every day smoker Tobacco type: cigarettes Second hand tobacco smoke exposure: No Smoking end date: 05/30/20 Alcohol intake: never Substance use: current Substance use type: marijuana Last use: 03/01/2020 Gender identity (if verbalized by the patient): Female Spiritual care concerns: No Comments At time of signature, I agree with nursing past medical, surgical, social and family history. There is no relevant family history pertinent to the presenting complaint. Exam Narrative: Exam Narrative: GENERAL: This is a well-nourished, well-developed patient, in mild distress. HEAD: normocephalic, atraumatic. EYES: Sclera clear/white. Vision is grossly intact. EARS: External ears normal, . Hearing grossly intact. NOSE: External nose normal without nasal discharge, nares without redness, no rhinorrhea. THROAT: Mucous membranes moist, NECK: Neck supple, CARDIOVASCULAR: Regular rate and rhythm without murmurs, gallops, or rubs. RESPIRATORY: Clear to auscultation. Breath sounds equal bilaterally. No wheezes, rales, or rhonchi. GASTROINTESTINAL: Abdomen soft, non-tender, SKIN: warm, intact with no suspicious lesions or rash, good texture and turgorGU: 2 x 2 abscess to right labial lip with swelling,tender, indurated but not fluctuant; has white pustule NEURO: awake, alert, and oriented to person, place and time. There were no obvious focal neurologic abno
--- NOTE | 2021-02-08 16:31 | PC.NURSE ---
1545- provider used an 18 gauge needle to poke wound and squeezed out some pus and blood. pt tolerated well.
== END 2021-02-08 16:14 | disposition home or self-care (01) ==
PROVIDERS: Emergency Provider Nurse Practitioner; PCP Family Medicine
DX: N76.4 Abscess of vulva (principal); F17.210 Nicotine dependence, cigarettes, uncomplicated; J45.909 Unspecified asthma, uncomplicated; E78.00 Pure hypercholesterolemia, unspecified; I10 Essential (primary) hypertension; F41.9 Anxiety disorder, unspecified; F32.9 Major depressive disorder, single episode, unspecified
CPT/HCPCS: 10160; 99213; G0463

== ENCOUNTER 2022-08-26 03:37 | Emergency (ER) | payer OTHER, SELFPAY ==
[2022-08-26 03:40] VITALS: BP 159/102; PULSE 76; RESP 18; TEMP 36.9; O2SAT 98
--- NOTE | 2022-08-26 03:52 | ED.EAR ---
HPI - Ear Problem General Chief complaint: Ear Stated complaint: R Ear Ache Source: patient and RN notes reviewed Mode of arrival: ambulatory Limitations: no limitations History of Present Illness HPI Narrative: Patient states that she went to her PCP yesterday had some swelling in her right ear canal. She was diagnosed with the otitis externa and surrounding infection. She is given azithromycin but has only taken 1 dose. She is also on some Cortisporin drops for ear. She says the swelling has gotten worse since she was seen in the office yesterday and is more painful. She denies any fever chills. She is also concerned that she is allergic to sulfa in it says that it is sulfate your drop. I explained that it is polymyxin sulfate and not sulfamethoxazole Complaint: ear pain Location: right ear Duration: constant Severity: moderate Relieving factors: nothing Exacerbating factors: chewing and palpation Discharge from ear: Reports no Associated symptoms ear: external ear tenderness and ear swelling Treatment prior to arrival: eardrops Related Data Home Medications Medication Instructions Recorded Confirmed venlafaxine 75 mg capsule,extended 75 mg PO DAILY 08/02/19 08/26/22 release 24 hr (Effexor XR) albuterol sulfate 90 mcg/actuation 90 mcg inhalation DIRECTED 07/09/20 08/26/22 aerosol inhaler clonazepam 1 mg tablet 1 mg PO TID 12/22/20 08/26/22 lisinopril 5 mg tablet 5 mg PO DAILY 08/26/22 08/26/22 trazodone 50 mg tablet 50 mg PO HS PRN Insomnia 08/26/22 08/26/22 Allergies Allergy/AdvReac Type Severity Reaction Status Date / Time Sulfa (Sulfonamide Allergy Mild Hives Verified 08/25/22 10:20 Antibiotics) Review of Systems Review of Systems: All systems reviewed & are unremarkable except as noted in HPI and below PMFSH Past Medical History Medical History Anxiety Asthma Bronchitis High cholesterol History of depression HTN (hypertension) Surgical History Surgical History H/O oophorectomy History of hand surgery Left March 2020 Family History Family History Father Pancreatic cancer Mother Hypertension Diabetes mellitus Social History Social History Smoking packs per day: 0.5 Smoking cigarettes per day: 10.0 Years smoked: 20 Smoking pack-years: 10.00 Smoking status: Current every day smoker Tobacco type: cigarettes Second hand tobacco smoke exposure: No Smoking end date: 05/30/20 Alcohol intake: never Substance use: current Substance use type: marijuana Last use: 03/01/2020 Gender identity (if verbalized by the patient): Female Spiritual care concerns: No Exam Const: General: healthy appearing, no acute distress and alert Nutritional Appearance: well nourished and obese Orientation/consciousness: patient oriented x3 Limitations: no limitations HENMT: Head: normal to inspection Ears: TM normal on the right, Abnormal EAC present erythema on the right, edema on the right and EAC tenderness on the right and diffuse; no otic discharge, external ear abnormal pain with movement of external ear on the right and diffuse, periauricular adenopathy on the right (anterior) and other ( soft tissue swelling anterior to the right ear. along the parotid gland) Eyes: Conjunctivae: conjunctivae normal Pupils: Equal, round and reactive pupils present EOM: EOMs intact bilaterally Neck: Neck: normal visual inspection Resp: Effort & Inspection: normal respiratory effort Auscultation: clear to auscultation bilaterally Cardio: Rate: regular rate Rhythm: regular rhythm GI: GI Palp: Yes Soft to palpation and No Tenderness to palpation present (GI) Auscultation: normal bowel sounds Back/Spine/Pelvis: Cervical Spine: cervical ROM normal Thorac
[2022-08-26] MEDS: KETOROLAC 30 MG/ML VIAL (*BKC) IM (04:03)
[2022-08-26 04:15] VITALS: BP 152/98; PULSE 70; RESP 18; TEMP 36.6; O2SAT 99
== END 2022-08-26 04:22 | disposition home or self-care (01) ==
PROVIDERS: Emergency Provider Emergency Medicine; PCP Nurse Practitioner Family
DX: H60.311 Diffuse otitis externa, right ear (principal); I10 Essential (primary) hypertension; J45.909 Unspecified asthma, uncomplicated; F41.9 Anxiety disorder, unspecified; F32.A Depression, unspecified; Z79.51 Long term (current) use of inhaled steroids; F12.90 Cannabis use, unspecified, uncomplicated; Z87.891 Personal history of nicotine dependence
CPT/HCPCS: 96372; 99283; J1885

== ENCOUNTER 2022-08-27 14:27 | Outpatient (CLI) | payer OTHER, SELFPAY ==
[2022-08-27 14:45] LABS: Basophils Absolute Auto 0.04 K/mm3 (0.00-0.10); Basophils Percent Auto 0.4 % (0.0-1.0); Eosinophils Absolute Auto 0.09 K/mm3 (0.02-0.50); Eosinophils Percent Auto 0.8 % (1.0-6.0); Hematocrit 38.3 % (35.0-49.0); Hemoglobin 12.6 g/dL (12.0-15.0); Immature Granulocyte Absolute 0.07 K/mm3 (0.00-0.00); Immature Granulocyte Percent A 0.6 % (0.0-0.0); Lymphocytes Absolute Auto 1.13 K/mm3 (1.10-4.50); Mean Corpuscular HGB Conc 32.9 g/dL (32.0-36.0); Mean Corpuscular Hemoglobin 29.2 pg (27.0-31.0); Mean Corpuscular Volume 88.9 fL (78.0-102.0); Mean Platelet Volume 11.6 fl (9.2-11.8); Monocytes Absolute Auto 0.43 K/mm3 (0.10-0.90); Monocytes Percent Auto 3.8 % (2.0-11.0); Neutrophils Absolute Auto 9.6 K/mm3 (1.7-7.2); Neutrophils Percent Auto 84.4 % (50.0-70.0); Platelet Count Result 190 K/mm3 (150-420); Red Blood Count 4.31 M/mm3 (4.20-5.40); Red Cell Distribution Width 13.8 % (11.6-14.4); White Blood Count 11.3 K/mm3 (4.8-10.8)
[2022-08-27 15:17] LABS: Alanine Aminotransferase 18 U/L (14-59); Albumin Level 3.4 g/dL (3.4-5.0); Alkaline Phosphatase 79 U/L (46-116); Anion Gap 6 mmol/L (8-16); Aspartate Amino Transferase < 10 U/L (15-37); Bilirubin,Total 0.2 mg/dL (0.00-1.00); Blood Urea Nitrogen 18 mg/dL (7-18); Calcium 8.3 mg/dL (8.5-10.1); Carbon Dioxide 27 mmol/L (21-32); Chloride 106 mmol/L (98-108); Cholesterol 157 mg/dL (0-200); Estimated Glomerular Filt Rate > 60; Free T4 Free Thyroxine 0.75 ng/dL (0.76-1.46); Glucose 120 mg/dL (70-99); HDL Direct 47 mg/dL (40-60); LDL Cholesterol Calculated 95 mg/dL (<130); Osmolality Calculated 290 mOsm/kg (285-295); Potassium 4.6 mmol/L (3.5-5.1); Sodium 139 mmol/L (136-145); Thyroid Stimulating Hormone 0.41 uIU/mL (0.36-3.74); Total Protein 6.9 g/dL (6.4-8.2); Triglycerides 77 mg/dL (0-150)
[2022-08-27 16:07] LABS: Pregnancy On Board Control Positive; Urine Pregnancy Test Negative
[2022-08-29 15:14] LABS: Hepatitis A Antibody IgM Nonreactive; Hepatitis B Core Antibody Nonreactive (Nonreactive); Hepatitis B Surface Antigen Nonreactive (Nonreactive); Hepatitis C Signal to Cutoff 0.01 ratio (<1.00); Hepatitis C Virus Antibody Nonreactive (Nonreactive)
== END 2022-08-27 14:28 | disposition home or self-care (01) ==
LOC: CHSLAB 14:28
PROVIDERS: PCP Nurse Practitioner Family; Visit Provider Nurse Practitioner Family
DX: Z00.00 Encounter for general adult medical examination without abnormal findings (principal); J40 Bronchitis, not specified as acute or chronic; I10 Essential (primary) hypertension; E78.00 Pure hypercholesterolemia, unspecified; Z86.59 Personal history of other mental and behavioral disorders
CPT/HCPCS: 36415; 80053; 80061; 80074; 81025; 83036; 84439; 84443; 85025

== ENCOUNTER 2022-08-28 15:49 | Outpatient (CLI) | payer OTHER, SELFPAY ==
[2022-08-28 16:36] LABS: Strep Group A RT-PCR NOT DETECTED (Negative)
[2022-08-28 16:37] LABS: Influenza A QL RT-PCR Negative (Negative); Influenza B QL RT-PCR Negative (Negative); SARS-CoV-2 RNA PCR Negative (Negative)
== END 2022-08-28 15:50 | disposition home or self-care (01) ==
LOC: CHSLAB 15:51
PROVIDERS: PCP Nurse Practitioner Family; Visit Provider Nurse Practitioner Family
DX: J45.40 Moderate persistent asthma, uncomplicated (principal); Z20.822 Contact with and (suspected) exposure to COVID-19
CPT/HCPCS: 87636; 87651

== ENCOUNTER 2022-09-04 15:00 | Outpatient (CLI) | payer OTHER, SELFPAY ==
[2022-09-04 15:18] LABS: Basophils Percent Auto 0.7 % (0.0-1.0); Eosinophils Absolute Auto 0.43 K/mm3 (0.02-0.50); Eosinophils Percent Auto 3.2 % (1.0-6.0); Hematocrit 41.4 % (35.0-49.0); Hemoglobin 13.6 g/dL (12.0-15.0); Immature Granulocyte Absolute 0.19 K/mm3 (0.00-0.00); Immature Granulocyte Percent A 1.4 % (0.0-0.0); Lymphocytes Absolute Auto 2.51 K/mm3 (1.10-4.50); Lymphocytes Percent Auto 18.8 % (18.0-42.0); Mean Corpuscular HGB Conc 32.9 g/dL (32.0-36.0); Mean Corpuscular Hemoglobin 28.9 pg (27.0-31.0); Mean Corpuscular Volume 88.1 fL (78.0-102.0); Mean Platelet Volume 11.3 fl (9.2-11.8); Monocytes Absolute Auto 1.04 K/mm3 (0.10-0.90); Monocytes Percent Auto 7.8 % (2.0-11.0); Neutrophils Absolute Auto 9.1 K/mm3 (1.7-7.2); Neutrophils Percent Auto 68.1 % (50.0-70.0); Platelet Count Result 224 K/mm3 (150-420); Red Cell Distribution Width 13.9 % (11.6-14.4); White Blood Count 13.4 K/mm3 (4.8-10.8)
[2022-09-04 15:25] LABS: Add Urine Microscopic? NO; Appearance Urine Clear (Clear); Bilirubin Urine Negative (Negative); Blood Urine Negative (Negative); Color Urine Light Yellow (Yellow); Glucose Urine UA Negative (Negative); Ketones Urine Negative (Negative); Leukocyte Esterase Ur Negative LEU/UL (Negative); Nitrate Urine Negative (Negative); Protein Urine Negative (Negative)
[2022-09-04 15:56] LABS: NT Pro B Type Natriuretic Pept 69 pg/mL (0-125)
== END 2022-09-04 15:01 | disposition home or self-care (01) ==
LOC: CHSLAB 15:01
PROVIDERS: PCP Nurse Practitioner Family; Visit Provider Nurse Practitioner Family
DX: R10.2 Pelvic and perineal pain (principal); R06.01 Orthopnea
CPT/HCPCS: 36415; 81003; 83880; 85025

== ENCOUNTER 2022-09-22 16:23 | Outpatient (NON) | payer OTHER, SELFPAY | END 2022-09-22 16:24 | disposition home or self-care (01) | PROVIDERS: Visit Provider Nurse Practitioner Family | DX: Z91.89 Other specified personal risk factors, not elsewhere classified (principal) | CPT/HCPCS: 87070; 87491; 87591; 87624; 88175; G0145 ==

== ENCOUNTER 2022-09-29 09:52 | Outpatient (CLI) | payer OTHER, SELFPAY ==
[2022-09-29 11:36] LABS: HIV 1 P24 AG Negative (Negative); HIV 1/2 AB Negative (Negative)
--- NOTE | 2022-09-29 14:44 | P.PCNPFT_ITS ---
PFT Procedure Performed PFT Procedure Performed Spirometry with Pre/Post Bronchodilator Plethysmography (Lung Vol) Diffusing Cap (DLCO) PFT Interpretation DOS: 09/29/2022 REQUESTING: Treva Martell APRN REASON FOR TESTING: history of smoking PULMONARY FUNCTION TESTS Results are reliable and reproducible. Spirometry: Pre-bronchodilator FEV1 is 3.67 L, 116%, normal range. Pre- bronchodilator FVC is 4.64 L, 120%, normal. FEV1/FVC ratio is 79%, normal. After bronchodilator administration, there is 4% increase in the FVC, 4.83 L. There is a 7% increase in the FEV1, 3.93 L. These are not statistically significant responses, per ATS standards. Lung volumes: Total lung capacity is 5.89 L, 97% predicted, normal. Residual volume 1.23 L, 60%, normal. RV/TLC is 21%, not elevated. Airway resistance 151%. Diffusion: DLCO is 24.1, 77%, normal. DLCO/VA is 4.06, 92%. Flow volume loop: Unremarkable IMPRESSION: This study shows normal spirometry without response to bronchodilator, normal lung volumes and normal diffusion. Lack of response to bronchodilator should not preclude use if clinically indicated. Vilma Howard MD
[2022-10-02 16:34] LABS: RPR Screen Non-Reactive (Non-Reactive)
[2022-10-02 20:48] LABS: HSV 1 IgM Screen Negative (Negative); HSV 2 IgM Screen Negative (Negative)
[2022-10-03 10:58] LABS: Hepatitis C Signal to Cutoff 0.02 ratio (<1.00); Hepatitis C Virus Antibody Nonreactive (Nonreactive)
== END 2022-09-29 09:53 | disposition home or self-care (01) ==
LOC: CHSCARD 09:53
PROVIDERS: PCP Nurse Practitioner Family; Visit Provider Nurse Practitioner Family
DX: Z91.89 Other specified personal risk factors, not elsewhere classified (principal)
CPT/HCPCS: 36415; 86592; 86695; 86696; 86703; 86803; 94060; 94726; 94729

== ENCOUNTER 2022-10-01 09:29 | Emergency (ER) | payer OTHER, SELFPAY ==
[2022-10-01 09:29] VITALS: BP 139/92; PULSE 85; RESP 20; TEMP 37.1; O2SAT 97
[2022-10-01 10:11] LABS: Strep Group A RT-PCR NOT DETECTED (Negative)
[2022-10-01 10:18] LABS: Influenza A QL RT-PCR Negative (Negative); Influenza B QL RT-PCR Negative (Negative); SARS-CoV-2 RNA PCR Negative (Negative)
--- NOTE | 2022-10-01 10:19 | ED.FEVER ---
HPI - Fever General Chief Complaint: Upper Respiratory Infection Stated Complaint: COLD AND FLU SYMPTOMS Time Seen by Provider: 10/01/22 09:32 Source: patient Mode of arrival: ambulatory Limitations: no limitations History of Present Illness HPI Narrative: this is a 37-year-old female with history of asthma presents with a 2 day history of cough congestion with low-grade fevers currently no shortness of breath no audible wheezing no chest pain or pressure no tightness in her chest, can not complete full sentences, there is no abdominal pain no dysuria no flank pain. MD elicited complaint: fever Onset (ago): day(s) Related Data Home Medications Medication Instructions Recorded Confirmed venlafaxine 75 mg capsule,extended 75 mg PO DAILY 08/02/19 10/01/22 release 24 hr (Effexor XR) clonazepam 1 mg tablet 1 mg PO TID 12/22/20 10/01/22 trazodone 50 mg tablet 50 mg PO HS PRN Insomnia 08/26/22 10/01/22 Allergies Allergy/AdvReac Type Severity Reaction Status Date / Time Sulfa (Sulfonamide Allergy Mild Hives Verified 09/22/22 15:23 Antibiotics) Review of Systems Review of Systems: All systems reviewed & are unremarkable except as noted in HPI and below PMFSH Past Medical History Medical History Anxiety Asthma Bronchitis High cholesterol History of depression HTN (hypertension) Surgical History Surgical History H/O oophorectomy History of hand surgery Left March 2020 Family History Family History Father Pancreatic cancer Mother Hypertension Diabetes mellitus Social History Social History Smoking packs per day: 0.5 Smoking cigarettes per day: 10.0 Years smoked: 20 Smoking pack-years: 10.00 Smoking status: Current every day smoker Tobacco type: cigarettes Second hand tobacco smoke exposure: No Smoking end date: 05/30/20 Alcohol intake: never Substance use: current Substance use type: marijuana Last use: 03/01/2020 Gender identity (if verbalized by the patient): Female Spiritual care concerns: No Exam Const: General: healthy appearing Nutritional Appearance: well nourished Orientation/consciousness: patient oriented x3 Limitations: no limitations HENMT: Head: normal to inspection Face and sinus: normal facial exam Mouth: Yes Normal oral and palatal mucosa present Eyes: Conjunctivae: conjunctivae normal Pupils: Equal, round and reactive pupils present EOM: EOMs intact bilaterally Neck: Neck: normal visual inspection, no lymphadenopathy and no meningeal signs Chest: Chest palpation & inspection: normal inspection of the chest Resp: Effort & Inspection: normal respiratory effort Cardio: Rate: regular rate Rhythm: regular rhythm GI: GI Palp: Yes Soft to palpation : General: Yes bladder normal to palpation Urinary Catheter: Urinary Catheter: patent and draining Back/Spine/Pelvis: Back: no CVA tenderness Skin: General skin exam: normal color Rashes: no rashes Wounds: no wounds Neuro: General: patient oriented x3 Cranial nerves: Yes Nystagmus not present Speech: normal speech Psych: Appearance: grossly normal Mental Status: mental status grossly normal Course [employer] Physician Supervision Patient had a rapid strep that was negative, COVID and influenza negative will send prescriptions antibiotics and steroid to her pharmacy. Vital Signs Vital signs: Vital Signs Temperature 37.1 C 10/01/22 09:29 Pulse Rate 85 10/01/22 09:29 Respiratory Rate 20 10/01/22 09:29 Blood Pressure 139/92 H 10/01/22 09:29 Pulse Oximetry 97 10/01/22 09:29 Oxygen Delivery Room Air 10/01/22 09:29 Temperature 36.9 C 10/01/22 11:45 Pulse Rate 84 10/01/22 11:45 Respiratory Rate 20 10/01/22 11:45 Blood P
[2022-10-01 11:45] VITALS: BP 134/84; PULSE 84; RESP 20; TEMP 36.9; O2SAT 97
== END 2022-10-01 11:49 | disposition home or self-care (01) ==
PROVIDERS: Emergency Provider Emergency Medicine; PCP Nurse Practitioner Family
DX: J39.8 Other specified diseases of upper respiratory tract (principal); J45.20 Mild intermittent asthma, uncomplicated; I10 Essential (primary) hypertension; J45.909 Unspecified asthma, uncomplicated; F41.9 Anxiety disorder, unspecified; F32.A Depression, unspecified; F17.210 Nicotine dependence, cigarettes, uncomplicated; Z20.822 Contact with and (suspected) exposure to COVID-19
CPT/HCPCS: 87636; 87651; 99283

== ENCOUNTER 2023-09-19 11:51 | Emergency (ER) | payer OTHER, SELFPAY ==
[2023-09-19 11:51] VITALS: BP 154/99; PULSE 79; RESP 17; TEMP 36.6; O2SAT 98
--- NOTE | 2023-09-19 12:26 | ED.GENADULT ---
HPI - General Adult General Chief complaint: Upper Respiratory Infection Stated complaint: cold symptoms. Time Seen by Provider: 09/19/23 12:09 History of Present Illness HPI narrative: this is a 38-year-old female with history asthma presenting for a cough. Patient had a viral illness 2 and half weeks ago that included headaches body aches and fevers. Her condition improved but she still had a lingering cough. The cough is dry, worse at night. Patient denies current fever chills chest pain difficulty breathing abdominal pain nausea vomiting diarrhea. Patient states she has had this in the past and is typically relieved by a course of prednisone. Related Data Home Medications Medication Instructions Recorded Confirmed venlafaxine 75 mg capsule,extended 75 mg PO DAILY 08/02/19 09/19/23 release 24 hr (Effexor XR) clonazepam 1 mg tablet 1 mg PO TID 12/22/20 09/19/23 trazodone 50 mg tablet 50 mg PO HS PRN Insomnia 08/26/22 09/19/23 Allergies Allergy/AdvReac Type Severity Reaction Status Date / Time Sulfa (Sulfonamide Allergy Mild Hives Verified 09/19/23 11:56 Antibiotics) [facility] Past Medical History Medical History Anxiety Asthma Bronchitis High cholesterol History of depression HTN (hypertension) Surgical History Surgical History H/O oophorectomy History of hand surgery Left March 2020 Family History Family History Father Pancreatic cancer Mother Hypertension Diabetes mellitus Social History Social History Smoking packs per day: 0.5 Smoking cigarettes per day: 10.0 Years smoked: 20 Smoking pack-years: 10.00 Smoking status: Current every day smoker Tobacco type: cigarettes Second hand tobacco smoke exposure: No Smoking end date: 05/30/20 Alcohol intake: never Substance use: current Substance use type: marijuana Last use: 03/01/2020 Gender identity (if verbalized by the patient): Female Spiritual care concerns: No Exam Narrative: APPEARANCE: No apparent distress. Head: atraumatic. tympanic membranes normal, throat normal. EYES: EOMI, NOSE: Atraumatic NECK: Trachea midline RESPIRATORY: No increased rate of breathing , CTAB, speaking in full sentences CARDIOVASCULAR: RRR, ABDOMINAL: Non-distended MUSCULOSKELETAl: No obvious deformities NEURO: Alert. Moving 4/4 extremities SKIN:: Warm, dry. Normal color PSYCHIATRIC: Normal affect Course Vital Signs Vital signs: Vital Signs Temperature 97.9 F 09/19/23 11:51 Pulse Rate 79 09/19/23 11:51 Respiratory Rate 17 09/19/23 11:51 Blood Pressure 154/99 H 09/19/23 11:51 Pulse Oximetry 98 09/19/23 11:51 Oxygen Delivery Room Air 09/19/23 11:51 Temperature 97.9 F 09/19/23 11:51 Pulse Rate 79 09/19/23 11:51 Respiratory Rate 17 09/19/23 11:51 Blood Pressure 154/99 H 09/19/23 11:51 Pulse Oximetry 98 09/19/23 11:51 Oxygen Delivery Room Air 09/19/23 11:51 Medical Decision Making [facility] Narrative Medical decision making narrative: -Course: 38-year-old female presenting 2 weeks after a viral illness with a persistent cough. She is well-appearing, VSS, with a normal lung exam. discussed getting viral swabs and a chest x-ray with patient and she declined stating she would just like to get the steroid and then get out here. patient will be given a short course of steroids and an inhaler. Discharged with return precautions. -DDX includes but is not limited to: Pneumonia, viral illness, bronchitis, post viral cough, asthma exacerbation, GERD -Co-morbidities complicating care: anxiety, asthma -Social determinants of health: unemployed, lives with her mom -Interventions: 10 mg dexamethasone -Shared decision making / Disposition: discharged -RX
[2023-09-19 13:28] VITALS: BP 164/98; PULSE 72; RESP 17; TEMP 36.6; O2SAT 100
== END 2023-09-19 13:28 | disposition home or self-care (01) ==
PROVIDERS: Emergency Provider Emergency Medicine; PCP Nurse Practitioner Family
DX: R05.9 Cough, unspecified (principal); I10 Essential (primary) hypertension; F41.9 Anxiety disorder, unspecified; F32.A Depression, unspecified; F17.210 Nicotine dependence, cigarettes, uncomplicated; Z79.899 Other long term (current) drug therapy
CPT/HCPCS: 96372; 99283; J1100

== ENCOUNTER 2023-09-23 14:33 | Outpatient (CLI) | payer OTHER, SELFPAY ==
[2023-09-23 14:46] LABS: Basophils Absolute Auto 0.06 K/mm3 (0.00-0.10); Basophils Percent Auto 0.5 % (0.0-1.0); Eosinophils Absolute Auto 0.06 K/mm3 (0.02-0.50); Eosinophils Percent Auto 0.5 % (1.0-6.0); Hemoglobin 13.7 g/dL (12.0-15.0); Immature Granulocyte Absolute 0.14 K/mm3 (0.00-0.00); Immature Granulocyte Percent A 1.2 % (0.0-0.0); Lymphocytes Absolute Auto 1.37 K/mm3 (1.10-4.50); Lymphocytes Percent Auto 11.8 % (18.0-42.0); Mean Corpuscular HGB Conc 31.9 g/dL (32.0-36.0); Mean Corpuscular Volume 87.8 fL (78.0-102.0); Mean Platelet Volume 11.6 fl (9.2-11.8); Monocytes Percent Auto 2.6 % (2.0-11.0); Neutrophils Absolute Auto 9.6 K/mm3 (1.7-7.2); Neutrophils Percent Auto 83.4 % (50.0-70.0); Platelet Count Result 199 K/mm3 (150-420); Red Cell Distribution Width 14.6 % (11.6-14.4); White Blood Count 11.6 K/mm3 (4.8-10.8)
[2023-09-23 15:08] LABS: Hemoglobin A1C 6.1 % (<5.7)
[2023-09-23 15:40] LABS: Alanine Aminotransferase 41 U/L (14-59); Albumin Level 3.3 g/dL (3.4-5.0); Alkaline Phosphatase 74 U/L (46-116); Anion Gap 11 mmol/L (8-16); Aspartate Amino Transferase 16 U/L (15-37); Bilirubin,Total 0.2 mg/dL (0.00-1.00); Blood Urea Nitrogen 17 mg/dL (7-18); Calcium 8.5 mg/dL (8.5-10.1); Carbon Dioxide 28 mmol/L (21-32); Chloride 103 mmol/L (98-108); Cholesterol 159 mg/dL (0-200); Estimated Glomerular Filt Rate > 60; Glucose 190 mg/dL (70-99); HDL Direct 39 mg/dL (40-60); Osmolality Calculated 300 mOsm/kg (285-295); Potassium 4.6 mmol/L (3.5-5.1); Sodium 142 mmol/L (136-145); Thyroid Stimulating Hormone 0.87 uIU/mL (0.36-3.74); Total Protein 6.7 g/dL (6.4-8.2)
[2023-09-23 15:41] LABS: LDL Cholesterol Calculated 18 mg/dL (<130); LDL Cholesterol Direct 70 mg/dL (0-130); Triglycerides 511 mg/dL (0-150)
== END 2023-09-23 14:34 | disposition home or self-care (01) ==
LOC: CHSLAB 14:35
PROVIDERS: PCP Nurse Practitioner Family; Visit Provider Nurse Practitioner Family
DX: Z00.00 Encounter for general adult medical examination without abnormal findings (principal)
CPT/HCPCS: 36415; 80053; 80061; 83036; 83721; 84443; 85025

== ENCOUNTER 2024-01-08 15:02 | Emergency (ER) | payer OTHER, SELFPAY ==
[2024-01-08 15:10] VITALS: BP 140/96; PULSE 69; RESP 20; TEMP 37.2; O2SAT 98
--- NOTE | 2024-01-08 15:23 | ED.DENTAL ---
HPI - Dental/Oral General Chief complaint: Dental/Oral Stated complaint: TOOTHACHE Source: patient Mode of arrival: ambulatory Limitations: no limitations History of Present Illness HPI Narrative: Patient is a 38-year-old female with a significant past medical history that presents today with tooth pain. Patient is to pain on her bottom right molar. This been going on for about 3 days now. There is an abscess forming back area as well. She has been taking some pain killer she had left over from something else and that has been helping with the pain. She needs something for the infection she cannot get into a dentist until March 08. MD Complaint: tooth pain and tooth injury Teeth map: 1. tooth abscess Onset (ago): day(s) Duration: constant Severity: moderate Severity scale (1-10): 6 Relieving factors: prescription analgesics Exacerbating factors: chewing and cold Context: history of dental caries Associated symptoms: fever and gum swelling Treatment prior to arrival: none Related Data Home Medications Medication Instructions Recorded Confirmed venlafaxine 75 mg capsule,extended 75 mg PO DAILY 08/02/19 09/23/23 release 24 hr (Effexor XR) trazodone 50 mg tablet 50 mg PO HS PRN Insomnia 08/26/22 09/23/23 Allergies Allergy/AdvReac Type Severity Reaction Status Date / Time Sulfa (Sulfonamide Allergy Mild Hives Verified 10/14/23 10:04 Antibiotics) Review of Systems Review of Systems: All systems reviewed & are unremarkable except as noted in HPI and below Constitutional: Constitutional: Reports as per HPI Eyes: Eyes: Reports no additional eye complaints ENT: Reports system reviewed and no additional complaints, except as documented Cardiovascular: Cardiovascular: Reports no additional cardiovascular complaints Respiratory: Respiratory: Reports no additional respiratory complaints Gastrointestinal: Gastrointestinal: Reports no additional gastrointestinal complaints Genitourinary: Genitourinary: Reports no additional female genitourinary complaints Musculoskeletal: Musculoskeletal: Reports no additional musculoskeletal complaints Integumentary/Breasts: Skin/Breast: Reports system reviewed and no additional complaints, except as docu Neurologic: Reports system reviewed and no additional complaints, except as documented Psychiatric: Psychiatric: Reports no additional psychiatric complaints Endocrine: Endocrine: Reports no additional endocrine complaints Hematologic/Lymphatic: Hematologic/Lymphatic: Reports no additional hematologic/lymphatic complaints Allergic/Immunologic: Allergic/Immunologic: Reports no additional allergic/immunologic complaints [facility] Past Medical History Medical History Anxiety Asthma Bronchitis High cholesterol History of depression HTN (hypertension) Nicotine dependence Surgical History Surgical History H/O oophorectomy History of hand surgery Left March 2020 Family History Family History Father Pancreatic cancer Mother Hypertension Diabetes mellitus Social History Social History Smoking packs per day: 0.5 Smoking cigarettes per day: 10.0 Years smoked: 20 Smoking pack-years: 10.00 Smoking status: Current every day smoker Tobacco type: cigarettes Second hand tobacco smoke exposure: No Smoking end date: 05/30/20 Alcohol intake: never Substance use: current Substance use type: marijuana Last use: 03/01/2020 Gender identity (if verbalized by the patient): Female Spiritual care concerns: No Exam Const: General: healthy appearing and no acute distress Nutritional Appearance: well nourished Orientation/consciousness: patient oriented x3 HENMT: Head: normal to inspection Ears: external ears nor
[2024-01-08] MEDS: CLINDAMYCIN HCL 150 MG CAP 300 MG PO (15:41)
== END 2024-01-08 15:49 | disposition home or self-care (01) ==
PROVIDERS: Emergency Provider Family Medicine
DX: K04.7 Periapical abscess without sinus (principal); I10 Essential (primary) hypertension; E78.00 Pure hypercholesterolemia, unspecified; J45.909 Unspecified asthma, uncomplicated; F41.9 Anxiety disorder, unspecified; F17.210 Nicotine dependence, cigarettes, uncomplicated; Z79.51 Long term (current) use of inhaled steroids; Z79.84 Long term (current) use of oral hypoglycemic drugs
CPT/HCPCS: 99283; A9270

== ENCOUNTER 2024-03-23 18:35 | Emergency (ER) | payer OTHER, SELFPAY ==
[2024-03-23 18:42] VITALS: BP 157/96; PULSE 81; RESP 20; TEMP 36.9; O2SAT 99
--- NOTE | 2024-03-23 18:43 | ED.URI ---
HPI - URI/Sore Throat General Chief Complaint: Ear Stated Complaint: Sore Throat/Left Ear Time Seen by Provider: 03/23/24 18:43 Source: patient, RN notes reviewed and old records reviewed Mode of arrival: ambulatory Limitations: no limitations History of Present Illness HPI Narrative: 38-year-old female presents to the [facility] with 1 month of left ear pain, increased over the last couple of days, states it feels swollen. Reports scratchy throat for last days as well. Denies fevers. Denies any other symptoms. No treatment prior to arrival Related Data Home Medications Medication Instructions Recorded Confirmed venlafaxine 75 mg capsule,extended 75 mg PO DAILY 08/02/19 09/23/23 release 24 hr (Effexor XR) trazodone 50 mg tablet 50 mg PO HS PRN Insomnia 08/26/22 09/23/23 Allergies Allergy/AdvReac Type Severity Reaction Status Date / Time Sulfa (Sulfonamide Allergy Mild Hives Verified 03/23/24 18:42 Antibiotics) Review of Systems Review of Systems: All systems reviewed & are unremarkable except as noted in HPI and below Constitutional: Constitutional: Reports no additional constitutional complaints Eyes: Eyes: Reports no additional eye complaints ENT: Reports as per HPI Cardiovascular: Cardiovascular: Reports no additional cardiovascular complaints, Denies chest pain and Denies dyspnea Respiratory: Respiratory: Reports no additional respiratory complaints, Denies chest congestion, Denies cough and Denies dyspnea Gastrointestinal: Gastrointestinal: Reports no additional gastrointestinal complaints, Denies abdominal pain, Denies nausea and Denies vomiting Musculoskeletal: Musculoskeletal: Reports no additional musculoskeletal complaints Integumentary/Breasts: Skin/Breast: Reports system reviewed and no additional complaints, except as docu Neurologic: Reports system reviewed and no additional complaints, except as documented Psychiatric: Psychiatric: Reports no additional psychiatric complaints Allergic/Immunologic: Allergic/Immunologic: Reports no additional allergic/immunologic complaints ON LICENSE OF [facility] Past Medical History Medical History Anxiety Asthma Bronchitis High cholesterol History of depression HTN (hypertension) Nicotine dependence Surgical History Surgical History H/O oophorectomy History of hand surgery Left March 2020 Family History Family History Father Pancreatic cancer Mother Hypertension Diabetes mellitus Social History Social History Smoking packs per day: 0.5 Smoking cigarettes per day: 10.0 Years smoked: 20 Smoking pack-years: 10.00 Smoking status: Current every day smoker Tobacco type: cigarettes Second hand tobacco smoke exposure: No Smoking end date: 05/30/20 Alcohol intake: never Substance use: current Substance use type: marijuana Last use: 03/01/2020 Gender identity (if verbalized by the patient): Female Spiritual care concerns: No Comments At the time of my signature, I reviewed and agree with the nursing past medical, surgical, social, and family history. There is no relevant family history pertinent to the patient complaint. Exam Const: General: cooperative, healthy appearing, comfortable, no acute distress, well developed, alert and well nourished Nutritional Appearance: well nourished Orientation/consciousness: patient oriented x3 Limitations: no limitations HENMT: Head: normal to inspection Ears: hearing grossly normal bilaterally, external ears normal, TM's normal bilaterally, mastoids normal, no periauricular adenopathy and Abnormal EAC present erythema on the left, edema on the left and EAC tenderness on the left Face/Nose/Sinus: Normal external nose present, Normal nares present, Normal na
== END 2024-03-23 19:00 | disposition home or self-care (01) ==
PROVIDERS: Emergency Provider Nurse Practitioner; PCP Nurse Practitioner Family
DX: H60.92 Unspecified otitis externa, left ear (principal); B00.1 Herpesviral vesicular dermatitis; Z87.891 Personal history of nicotine dependence; J45.909 Unspecified asthma, uncomplicated; E78.00 Pure hypercholesterolemia, unspecified; I10 Essential (primary) hypertension; F41.9 Anxiety disorder, unspecified
CPT/HCPCS: 99213; G0463

== ENCOUNTER 2024-04-14 10:48 | Outpatient (CLI) | payer OTHER, SELFPAY ==
[2024-04-14 11:40] LABS: Hemoglobin A1C 5.9 % (<5.7)
[2024-04-14 12:32] LABS: Alanine Aminotransferase 19 U/L (14-59); Albumin Level 3.6 g/dL (3.4-5.0); Alkaline Phosphatase 81 U/L (46-116); Anion Gap 6 mmol/L (4-12); Aspartate Amino Transferase 11 U/L (15-37); Bilirubin,Total 0.2 mg/dL (0.00-1.00); Blood Urea Nitrogen 17 mg/dL (7-18); Calcium 8.5 mg/dL (8.5-10.1); Carbon Dioxide 28 mmol/L (21-32); Chloride 106 mmol/L (98-108); Estimated Glomerular Filt Rate > 60; Glucose 99 mg/dL (70-99); Osmolality Calculated 291 mOsm/kg (285-295); Potassium 5.1 mmol/L (3.5-5.1); Sodium 140 mmol/L (136-145); Total Protein 7.1 g/dL (6.4-8.2); Triglycerides 191 mg/dL (0-150)
== END 2024-04-14 10:49 | disposition home or self-care (01) ==
LOC: CHSLAB 10:49
PROVIDERS: PCP Nurse Practitioner Family; Visit Provider Nurse Practitioner Family
DX: R73.03 Prediabetes (principal); E78.00 Pure hypercholesterolemia, unspecified; B00.9 Herpesviral infection, unspecified
CPT/HCPCS: 36415; 80053; 83036; 84478

== ENCOUNTER 2024-04-22 15:26 | Emergency (ER) | payer OTHER, SELFPAY ==
[2024-04-22 15:26] VITALS: BP 150/107; PULSE 78; RESP 16; TEMP 36.9; O2SAT 98
--- NOTE | 2024-04-22 15:38 | ED.GENADULT ---
HPI - General Adult General Chief complaint: Wound/Laceration Stated complaint: s/p surgical pain Source: patient Mode of arrival: ambulatory Limitations: no limitations History of Present Illness HPI narrative: This is a 38-year-old female that presents with some tenderness warmth at bases insight in her lower abdomen with no drainage, no current fever chills no abdominal pain no flank pain no dysuria. Patient is status post hysterectomy has incision in the lower abdomen that has not healed that is warm and red and tender. Onset (ago): day(s) Related Data Home Medications Medication Instructions Recorded Confirmed venlafaxine 75 mg capsule,extended 75 mg PO DAILY 08/02/19 09/23/23 release 24 hr (Effexor XR) trazodone 50 mg tablet 50 mg PO HS PRN Insomnia 08/26/22 09/23/23 Allergies Allergy/AdvReac Type Severity Reaction Status Date / Time Sulfa (Sulfonamide Allergy Mild Hives Verified 04/14/24 09:59 Antibiotics) Review of Systems Review of Systems: All systems reviewed & are unremarkable except as noted in HPI and below PMFSH Past Medical History Medical History Anxiety Asthma Bronchitis High cholesterol History of depression HTN (hypertension) Nicotine dependence Surgical History Surgical History H/O oophorectomy History of hand surgery Left March 2020 Family History Family History Father Pancreatic cancer Mother Hypertension Diabetes mellitus Social History Social History Smoking packs per day: 0.5 Smoking cigarettes per day: 10.0 Years smoked: 20 Smoking pack-years: 10.00 Smoking status: Current every day smoker Tobacco type: cigarettes Second hand tobacco smoke exposure: No Smoking end date: 05/30/20 Alcohol intake: never Substance use: current Substance use type: marijuana Last use: 03/01/2020 Gender identity (if verbalized by the patient): Female Spiritual care concerns: No Exam Const: General: cooperative, healthy appearing, comfortable, no acute distress and well developed Chest: Chest palpation & inspection: normal inspection of the chest and normal palpation of entire chest wall Resp: Effort & Inspection: normal respiratory effort and able to speak in complete sentences Auscultation: clear to auscultation bilaterally Cardio: Jugular venous distension: no JVD Palpation: normal PMI Rate: regular rate Rhythm: regular rhythm GI: Inspection: normal to inspection Abdomen image: 1. Incision site red warm and tender no drainage Back/Spine/Pelvis: Back: no CVA tenderness Course Course Emergency Course: area was assessed warm and tender with no drainage no fever chills will administer pain medication 60mg of IM Toradol and a g of ceftriaxone IM. 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 Vital Signs Vital signs: Vital Signs Temperature 36.9 C 04/22/24 15:35 Pulse Rate 78 04/22/24 15:35 Respiratory Rate 16 04/22/24 15:35 Blood Pressure 150/107 H 04/22/24 15:35 Pulse Oximetry 98 04/22/24 15:35 Oxygen Delivery Room Air 04/22/24 15:35 Temperature 36.9 C 04/22/24 15:35 Pulse Rate 78 04/22/24 15:35 Respiratory Rate 16 04/22/24 15:35 Blood Pressure 150/107 H 04/22/24 15:35 Pulse Oximetry 98 04/22/24 15:35 Oxygen Delivery Room Air 04/22/24 15:35 Medical Decision Making Vital Signs Vital Signs: Vital Signs Temperature 36.9 C 04/22/24 15:35 Pulse Rate 78 04/22/24 15:35 Respiratory Rate 16 04/22/24 15:35 Blood Pressure 150/107 H 04/22/24 15:35 Pulse Oximetry 98 04/22/24 15:35 Oxygen Delivery Room Air 04/22/24 15:35 Temperature 36.9 C 04/22/24 15:35 Pulse Rate 78 04/22/24 15:35 Respir
[2024-04-22] MEDS: KETOROLAC (*BKC) 60 MG/2 ML VIAL IM (15:42)
[2024-04-22] MEDS: cefTRIAXone 1 GM, LIDOCAINE HCL 1% LOCAL INJ 2.1 ML IM (15:44)
[2024-04-22 15:47] VITALS: BP 139/89
== END 2024-04-22 15:58 | disposition home or self-care (01) ==
LOC: CHSED 15:54
PROVIDERS: Emergency Provider Emergency Medicine; PCP Nurse Practitioner Family
DX: L03.311 Cellulitis of abdominal wall (principal); N99.89 Other postprocedural complications and disorders of genitourinary system; I10 Essential (primary) hypertension; F17.210 Nicotine dependence, cigarettes, uncomplicated
CPT/HCPCS: 96372; 99284; J0696; J1885

== ENCOUNTER 2024-05-02 12:30 | Outpatient (CLI) | payer OTHER, SELFPAY ==
--- NOTE | ~2024-05-02 | US_ITS ---
EXAMINATION: US soft tissue pelvic DATE: 05/02/2024 12:53 INDICATION: Right pelvic pain. TECHNIQUE: Multiple grayscale and Doppler ultrasound images of the pelvis were obtained. COMPARISON: CT abdomen and pelvis 05/30/2015 FINDINGS: There is no abnormal mass or abscess or lymphadenopathy in the patient's area of concern in right pelvis. IMPRESSION: 1. No abnormality in the patient's area of concern in right pelvis. Reviewed, dictated and finalized at location A.
== END 2024-05-02 12:31 | disposition home or self-care (01) ==
PROVIDERS: PCP Nurse Practitioner Family; Visit Provider Nurse Practitioner Family
DX: R10.9 Unspecified abdominal pain (principal)
CPT/HCPCS: 76857

== ENCOUNTER 2024-06-24 13:06 | Emergency (ER) | payer OTHER, SELFPAY ==
[2024-06-24 13:18] VITALS: BP 152/98; PULSE 78; RESP 18; TEMP 37; O2SAT 98
--- NOTE | 2024-06-24 14:04 | ED_ITS ---
HPI - General Adult General Chief complaint: Upper Respiratory Infection Stated complaint: LT Ear Pain / sore throat / cough Time Seen by Provider: 06/24/24 14:04 Source: patient Mode of arrival: ambulatory Limitations: no limitations History of Present Illness HPI narrative: 29-year-old female patient presents to [facility] with complaints of left ear pain, sore throat and cough for the past week. Patient is an active smoker and states she has been using her albuterol inhaler about 2 to 3 times a day. Patient states she does have history of bronchitis. Denies fevers, body aches or chills. Patient states she has had a cough but denies any shortness of breath at this time. Denies any chest pain at this time. Related Data Home Medications Medication Instructions Recorded Confirmed venlafaxine 75 mg capsule,extended 75 mg PO DAILY 08/02/19 09/23/23 release 24 hr (Effexor XR) clonazepam 1 mg tablet 1 mg DIRECTED 06/24/24 06/24/24 Allergies Allergy/AdvReac Type Severity Reaction Status Date / Time Sulfa (Sulfonamide Allergy Mild Hives Verified 06/24/24 13:50 Antibiotics) Review of Systems Review of Systems: CONSTITUTIONAL: Denies fever, chills, or sweats. EYES: Denies visual changes, redness, or discharge. ENT: Positive rhinorrhea, congestion, sore throat, and left otalgia. CARDIOVASCULAR: Denies chest pain, palpitations, or edema. RESPIRATORY: positive cough denies dyspnea. GASTROINTESTINAL: Denies abdominal pain, nausea, vomiting, or diarrhea. GENITOURINARY: Denies dysuria or hematuria. SKIN: Denies rash or itching. MUSCULOSKELETAL: Denies back pain, joint pain, or myalgia. NEUROLOGIC: Denies headache, numbness, or weakness. PSYCHIATRIC: Denies anxiety or depression. FORMERLY [facility], [facility] Past Medical History Medical History Anxiety Asthma Bronchitis High cholesterol History of depression HTN (hypertension) Nicotine dependence Surgical History Surgical History H/O oophorectomy History of hand surgery Left March 2020 Family History Family History Father Pancreatic cancer Mother Hypertension Diabetes mellitus Social History Social History Smoking packs per day: 0.5 Smoking cigarettes per day: 10.0 Years smoked: 20 Smoking pack-years: 10.00 Smoking status: Current every day smoker Tobacco type: cigarettes Second hand tobacco smoke exposure: No Smoking end date: 05/30/20 Alcohol intake: never Substance use: current Substance use type: marijuana Last use: 03/01/2020 Gender identity (if verbalized by the patient): Female Spiritual care concerns: No Comments At the time of my signature I agree with nursing past medical history, surgical, social, and family history. There is no relevant family history pertinent to the presenting complaint. Exam Narrative: GENERAL: Well-appearing, well-nourished, and in no acute distress. HEAD: Normocephalic, atraumatic. EYES: PERRLA and EOMI. ENT: Nares with erythema edema noted bilaterally, no rhinorrhea or epistaxis. Mucous membranes moist. posterior pharynx with no erythema, tonsillar enlargement, exudates or lesions present. The left TM does appear to have some fluid behind it with some bulging and slight erythema present. NECK: Supple. No lymphadenopathy CHEST: Clear to auscultation. No respiratory distress. Patient able talk clear complete sentences mild cough noted during exam HEART: Regular rate and rhythm. No murmur heard. Normal peripheral pulses. ABDOMEN: Soft, nontender, nondistended, normal active bowel sounds. EXTREMITIES: Normal range of motion. No edema. SKIN: Warm, dry, no rash. NEURO: No focal deficits. Alert and oriented x3. Course Course Level of Care: Express Care Visit Vital Signs Vital signs: Vital Signs Temperature 37.0 C 06/24/24 13:18 Pulse Rate 78 06/24/24 13:18 Respiratory Rate 18 06/24/24 13:18 Blood Pressure 152/98 H 06/24/24 13:18 Pulse Oximetry 98 06/24/24 13:18 Oxygen Delivery Room Air 06/24/24 13:18 Temperature 37.0 C 06/24/24 13:18 Pulse Rate 78 06/24/24 13:18 Respiratory Rate 18 06/24/24 13:18 Blood Pressure 152/98 H 06/24/24 13:18 Pulse Oximetry 98 06/24/24 13:18 Oxygen Delivery Room Air 06/24/24 13:18 vital signs reviewed. The patient has been informed that they may have pre-hypertension or H ypertension based on a BP reading in the department. I recommend that the patient call the primary care provider listed on their discharge instructions or a physician of their choice this week to arrange follow up for further evaluation of possible pre-hypertension or Hypertension Medical Decision Making MDM Narrative Medical decision making narrative: plan care patient is discharged home with antibiotics for a left ear infection and encouraged patient to continue using albuterol inhaler every 4 hours as needed for cough and to start on antihistamines such as Zyrtec, Claritin Sully to help with the sinus symptoms. Patient verbalized understanding denies any other questions or concerns at this time Differential Diagnosis Differential Diagnosis: Differential diagnosis: Allergic rhinitis, chronic sinusitis, tonsillitis, acute sinusitis, infectious mononucleosis, seasonal influenza, pertussis, diphtheria, meningococcal disease, viral syndrome, viral bronchitis, RSV, COVID- 19 Otitis media, otitis externa, perforated TM, infection of the outer ear, foreign body or cerumen impaction, ruptured TM, acute mastoiditis, ligament otitis externa, dehydration, pneumonia, sepsis, dental or intraoral infection, TMJ dysfunction Vital Signs Vital Signs: Vital Signs Temperature 37.0 C 06/24/24 13:18 Pulse Rate 78 06/24/24 13:18 Respiratory Rate 18 06/24/24 13:18 Blood Pressure 152/98 H 06/24/24 13:18 Pulse Oximetry 98 06/24/24 13:18 Oxygen Delivery Room Air 06/24/24 13:18 Temperature 37.0 C 06/24/24 13:18 Pulse Rate 78 06/24/24 13:18 Respiratory Rate 18 06/24/24 13:18 Blood Pressure 152/98 H 06/24/24 13:18 Pulse Oximetry 98 06/24/24 13:18 Oxygen Delivery Room Air 06/24/24 13:18 Critical Care Time Critical Care Time Critical Care Time: No Discharge Plan Discharge Clinical Impression: Acute left otitis media Allergic rhinitis Qualifiers: Allergic rhinitis trigger: unspecified Allergic rhinitis seasonality: seasonal Qualified Code(s): J30.2 - Other seasonal allergic rhinitis Patient Disposition: Home, Self-Care Condition: Stable Instructions: Antibiotic Form, Ear Infection (GEN) Additional Instructions: An ear infection is also called otitis media. An ear infection may be caused by blocked or swollen eustachian tubes. Eustachian tubes connect the middle ear to the back of the nose and throat. They drain fluid from the middle ear. With an ear infection, fluid builds up and is infected by germs. The germs grow easily in fluid trapped behind the eardrum. DISCHARGE INSTRUCTIONS: Call 911 or have someone call 911 for the following: You have a seizure. Return to the emergency department if: You have a fever and a stiff neck. Contact your healthcare provider if: Your ear pain gets worse or does not go away, even after treatment. The outside of your ear is red or swollen. You are vomiting or have diarrhea. You have fluid coming from your ear. You have questions or concerns about your condition or care. Medicines: Acetaminophen decreases pain and fever. It is available without a doctor's order. Ask how much to take and how often to take it. Follow directions. Read the labels of all other medicines you are using to see if they also contain acetaminophen, or ask your doctor or pharmacist. Acetaminophen can cause liver damage if not taken correctly. Do not use more than 4 grams (4,000 milligrams) total of acetaminophen in one day. NSAIDs , such as ibuprofen, help decrease swelling, pain, and fever. This medicine is available with or without a doctor's order. NSAIDs can cause stomach bleeding or kidney problems in certain people. If you take blood thinner medicine, always ask your healthcare provider if NSAIDs are safe for you. Always read the medicine label and follow directions. Ear drops help treat your ear pain. Antibiotics help treat a bacterial infection that caused your ear infection. Take your medicine as directed. Contact your healthcare provider if you think your medicine is not helping or if you have side effects. Tell him or her if you are allergic to any medicine. Keep a list of the medicines, vitamins, and herbs you take. Include the amounts, and when and why you take them. Bring the list or the pill bottles to follow-up visits. Carry your medicine list with you in case of an emergency. Prevent an ear infection: Wash your hands often. Use soap and water. Wash your hands after you use the bathroom, change a child's diapers, or sneeze. Wash your hands before you prepare or eat food. Handwashing Stay away from people who are ill. Some germs are easily and quickly spread through contact. Prescriptions: New amoxicillin-pot clavulanate 875-125 mg tablet 1 tablet PO Q12H 7 Days Qty: 14 0RF No Action clonazepam 1 mg tablet 1 mg DIRECTED venlafaxine [Effexor XR] 75 mg Capsule,Extended Release 24hr 75 mg PO DAILY Breztri Aerosphere 160-9-4.8 mcg/actuation HFA aerosol inhaler 2 inh inhalation QAM AND QPM Qty: 10.7 3RF albuterol sulfate 90 mcg/actuation HFA aerosol inhaler 2 puff inhalation QID Qty: 8.5 2RF valacyclovir 500 mg tablet See Rx Instructions .ROUTE .COMPLEX Qty: 60 2RF Dose Instruction: TAKE 2 TABS ORALLY DAILY FOR 90 DAYS PLEASE GET LABS COMPLETED TO MONITOR KIDNEY FUNCTION Rx Instructions: TAKE 2 TABS ORALLY DAILY FOR 90 DAYS PLEASE GET LABS COMPLETED TO MONITOR KIDNEY FUNCTION metformin 850 mg tablet See Rx Instructions .ROUTE .COMPLEX Qty: 90 1RF Dose Instruction: TAKE 1 TABLET BY MOUTH EVERY DAY WITH MEAL Rx Instructions: TAKE 1 TABLET BY MOUTH EVERY DAY WITH MEAL lisinopril 40 mg tablet See Rx Instructions .ROUTE .COMPLEX Qty: 30 1RF Dose Instruction: TAKE 1 TABLET BY MOUTH EVERY DAY -MONITOR BLOOD PRESSURE 2X DAILY BEFORE COFFEE, STIMULANT, BP MED Rx Instructions: TAKE 1 TABLET BY MOUTH EVERY DAY -MONITOR BLOOD PRESSURE 2X DAILY BEFORE COFFEE, STIMULANT, BP MED Follow-up/Referrals: Treva Martell APRN [Primary Care Provider] - Time of Disposition: 14:11
== END 2024-06-24 14:15 | disposition home or self-care (01) ==
PROVIDERS: Emergency Provider Nurse Practitioner Family; PCP Nurse Practitioner Family
DX: H66.92 Otitis media, unspecified, left ear (principal); J30.2 Other seasonal allergic rhinitis; Z87.891 Personal history of nicotine dependence; I10 Essential (primary) hypertension; E78.00 Pure hypercholesterolemia, unspecified; J45.909 Unspecified asthma, uncomplicated; F41.9 Anxiety disorder, unspecified; F32.A Depression, unspecified
CPT/HCPCS: 99213; G0463

== ENCOUNTER 2024-07-14 10:10 | Outpatient (CLI) | payer OTHER, SELFPAY ==
--- NOTE | ~2024-07-14 | XR_ITS ---
EXAMINATION: XR hip BI 2V w AP pelvis DATE: 07/14/2024 10:35 INDICATION: Low back pain radiating to the bilateral hips. Sciatica. TECHNIQUE: An anteroposterior view of the pelvis and 2 views of each hip were obtained. COMPARISON: None. FINDINGS: Alignment is normal. No fracture. There is mild osteoarthritis of the hips. IMPRESSION: 1. Mild osteoarthritis of the hips. Reviewed, dictated and finalized at location A. AR MAN
--- NOTE | ~2024-07-14 | XR_ITS ---
EXAMINATION: XR abdomen/kub 1V DATE: 07/14/2024 10:35 INDICATION: Constipation. Nausea and vomiting. TECHNIQUE: A supine view of the abdomen on 3 radiographs was obtained. COMPARISON: CT abdomen and pelvis 05/30/2015 FINDINGS: There are no dilated loops of bowel. There is a moderate volume of stool in colon. IMPRESSION: 1. Nonobstructive bowel gas pattern. Reviewed, dictated and finalized at location A. TS BOOK SERVER
--- NOTE | ~2024-07-14 | XR_ITS ---
EXAMINATION: XR lumbar spine 2-3V DATE: 07/14/2024 10:35 INDICATION: Sciatica. Low back pain radiating to the hips. TECHNIQUE: 3 views of lumbar spine were obtained. COMPARISON: Lumbar spine radiographs 08/19/2013 FINDINGS: Bone alignment is normal. Vertebral body heights are normal. There are endplate osteophytes at most levels. There is mildly decreased disc height at L3-L4 and L5-S1. There is multilevel mild f acet joint osteoarthritis. IMPRESSION: 1. Mild lumbar spondylosis. Reviewed, dictated and finalized at location A. BLANKING PRESS ADJUSTER IMPRESSION: 1. Mild lumbar spondylosis.
[2024-07-14 10:20] LABS: Add Urine Microscopic? YES; Appearance Urine Clear (Clear); Bilirubin Urine Negative (Negative); Blood Urine Negative (Negative); Glucose Urine UA Negative (Negative); Ketones Urine Negative (Negative); Leukocyte Esterase Ur Trace LEU/UL (Negative); Nitrate Urine Negative (Negative); Protein Urine Negative (Negative); Specific Grav Ur 1.025 (1.010-1.020); Urobilinogen Urine 0.2 mg/dL (0.2-1.0)
[2024-07-14 10:29] LABS: Bacteria Urine Rare /hpf; Color Urine Yellow (Yellow); RBC Urine None seen /hpf (0-2); Squamous Epithelial Cell Urine Moderate /hpf (Few); WBC Urine None seen /hpf (0-3)
== END 2024-07-14 10:11 | disposition home or self-care (01) ==
LOC: CHSLAB 10:12
PROVIDERS: PCP Nurse Practitioner Family; Visit Provider Nurse Practitioner Family
DX: M54.30 Sciatica, unspecified side (principal); R11.0 Nausea; M54.9 Dorsalgia, unspecified; M43.06 Spondylolysis, lumbar region; M16.0 Bilateral primary osteoarthritis of hip
CPT/HCPCS: 72100; 73521; 74018; 81001

== ENCOUNTER 2024-07-18 13:12 | Outpatient (CLI) | payer OTHER, SELFPAY ==
[2024-07-18 14:19] LABS: HIV 1 P24 AG Negative (Negative); HIV 1/2 AB Negative (Negative)
[2024-07-19 08:25] LABS: Trichomonas Vag PCR NOT DETECTED (NOT DETECTE)
[2024-07-19 08:50] LABS: Chlamydia trachomatis NOT DETECTED (NOT DETECTE); Neisseria gonorrhoeae PCR NOT DETECTED (NOT DETECTE)
[2024-07-19 10:44] LABS: Hepatitis C Virus Antibody NON-REACTIVE (NON-REACTIVE)
[2024-07-19 15:28] LABS: RPR Screen NON-REACTIVE (NON-REACTIVE)
== END 2024-07-18 13:13 | disposition home or self-care (01) ==
PROVIDERS: PCP Nurse Practitioner Family; Visit Provider Nurse Practitioner Family
DX: Z11.3 Encounter for screening for infections with a predominantly sexual mode of transmission (principal)
CPT/HCPCS: 36415; 86592; 86695; 86696; 86803; 87491; 87591; 87661; 87806

== ENCOUNTER 2024-09-05 18:34 | Emergency (ER) | payer OTHER, SELFPAY ==
[2024-09-05 18:40] VITALS: BP 171/119; PULSE 79; RESP 20; TEMP 36.6; O2SAT 100
--- NOTE | 2024-09-05 18:49 | ED_ITS ---
HPI - General Adult General Chief complaint: Back Pain/Injury Stated complaint: BACK PAIN Time Seen by Provider: 09/05/24 18:48 Source: patient Mode of arrival: ambulatory Limitations: no limitations History of Present Illness HPI narrative: 3-year-old obese white female complains of left lower back pain for last 4 days worse after she was shoveling snow. She has a history of arthritis in her left hip. She has been using her meloxicam Tylenol and ibuprofen for pain and using ice packs and low heating pad alternating. Denies any weakness or numbness cough fever sore throat runny nose problems walking talking seeing or hearing voiding or stooling eating or drinking rash or itching bleeding or bruising swelling lumps or bumps dizziness or lightheadedness or any other complaints. Denies any history of previous back pain. Related Data Home Medications ?Medication ?Instructions ?Recorded ?Confirmed ?Last Taken ?Type venlafaxine 75 mg capsule,extended 75 mg PO DAILY 08/02/19 09/05/24 03/07/20 07:00 History release 24 hr (Effexor XR) clonazepam 1 mg tablet 1 mg PO DIRECTED 06/24/24 09/05/24 Unknown History Allergies Allergy/AdvReac Type Severity Reaction Status Date / Time Sulfa (Sulfonamide Allergy Mild Hives Verified 09/05/24 18:42 Antibiotics) Review of Systems Review of Systems: All systems reviewed & are unremarkable except as noted in HPI and below PMFSH Past Medical History Medical History Nicotine dependence High cholesterol HTN (hypertension) Bronchitis Anxiety History of depression Asthma Surgical History Surgical History History of hand surgery Left March 2020 H/O oophorectomy Family History Family History Father Pancreatic cancer Mother Hypertension Diabetes mellitus Social History Social History Smoking packs per day: 0.5 Smoking cigarettes per day: 10.0 Years smoked: 20 Smoking pack-years: 10.00 Smoking status: Current every day smoker Tobacco type: cigarettes Second hand tobacco smoke exposure: No Smoking end date: 05/30/20 Alcohol intake: never Substance use: current Substance use type: marijuana Last use: 03/01/2020 Gender identity (if verbalized by the patient): Female Spiritual care concerns: No Exam Narrative: White female patient with no apparent distress.? Head normocephalic, atraumatic.? Eyes conjunctiva pink sclera nonicteric.? Extraocular movements are intact.? Ears externally normal.? TMs are normal. ?Oropharynx is clear with moist mucous membranes without exudates.? Neck is supple nontender no lym phadenopathy.? Back Left para lumbar tenderness negative straight leg raise bilaterally.? Lungs are clear.? Heart is regular rate and rhythm without murmurs gallops or rubs.? Chest wall nontender. Abdomen is soft and nontender no hepatosplenomegaly or masses no CVA tenderness no abdominal bruits.? Extremities no cyanosis clubbing or edema.? Skin is warm and dry without rashes or lesions.? Neurological patient is alert and oriented x4.? Motor and sensory grossly intact.? Gait is normal. Course Vital Signs Vital signs: Vital Signs Temperature 36.6 C 09/05/24 18:40 Pulse Rate 79 09/05/24 18:40 Respiratory Rate 20 09/05/24 18:40 Blood Pressure 171/119 H 09/05/24 18:40 Pulse Oximetry 100 09/05/24 18:40 Oxygen Delivery Room Air 09/05/24 18:40 Temperature 36.6 C 09/05/24 18:40 Pulse Rate 79 09/05/24 18:40 Respiratory Rate 20 09/05/24 18:40 Blood Pressure 171/119 H 09/05/24 18:40 Pulse Oximetry 100 09/05/24 18:40 Oxygen Delivery Room Air 09/05/24 18:40 Medical Decision Making [facility] Narrative Medical decision making narrative: ?Patient placed in room: One ? History and physical was performed. Independent Historian: patient External Source Review: Differential Dx includes but not limited to: lumbar strain degenerative disc disease Medications were Reviewed: home meds reviewed Medications given: Toradol 30 mg IM Much improved the patient wishing discharge Independently Interpreted by me: Shared decision Making: evaluation was discussed all questions were asked and answered and patient agreed with the plan. Tylenol meloxicam icing low he pad as needed for pain follow-up with primary care provider return if she gets worse or develops any new symptoms Social Situation Impacting Patients Care: Chronic left hip pain DISCHARGE DIAGNOSIS: lumbar strain DISPOSITION : discharge CONDITION AT DISCHARGE: stable Vital Signs Vital Signs: Vital Signs Temperature 36.6 C 09/05/24 18:40 Pulse Rate 79 09/05/24 18:40 Respiratory Rate 20 09/05/24 18:40 Blood Pressure 171/119 H 09/05/24 18:40 Pulse Oximetry 100 09/05/24 18:40 Oxygen Delivery Room Air 09/05/24 18:40 Temperature 36.6 C 09/05/24 18:40 Pulse Rate 79 09/05/24 18:40 Respiratory Rate 20 09/05/24 18:40 Blood Pressure 171/119 H 09/05/24 18:40 Pulse Oximetry 100 09/05/24 18:40 Oxygen Delivery Room Air 09/05/24 18:40 Discharge Plan Discharge Clinical Impression: Lumbar spine strain Qualifiers: Encounter type: initial encounter Qualified Code(s): S39.012A - Strain of muscle, fascia and tendon of lower back, initial encounter Patient Disposition: Home, Self-Care Condition: Stable Instructions: Acute Low Back Pain (ED) Additional Instructions: Tylenol as needed for pain. Your meloxicam for pain. Ice packs and or low heating pad has discussed for 20 minutes. Follow-up with your primary care provider. Return if you get worse or develops any new symptoms. Patient Language: New Zealander Prescriptions: No Action clonazepam 1 mg tablet 1 mg PO DIRECTED venlafaxine [Effexor XR] 75 mg Capsule,Extended Release 24hr 75 mg PO DAILY valacyclovir 500 mg tablet See Rx Instructions .ROUTE .COMPLEX Qty: 60 2RF Dose Instruction: TAKE 2 TABS ORALLY DAILY FOR 90 DAYS PLEASE GET LABS COMPLETED TO MONITOR KIDNEY FUNCTION Rx Instructions: TAKE 2 TABS ORALLY DAILY FOR 90 DAYS PLEASE GET LABS COMPLETED TO MONITOR KIDNEY FUNCTION metformin 850 mg tablet See Rx Instructions .ROUTE .COMPLEX Qty: 90 1RF Dose Instruction: TAKE 1 TABLET BY MOUTH EVERY DAY WITH MEAL Rx Instructions: TAKE 1 TABLET BY MOUTH EVERY DAY WITH MEAL meloxicam 7.5 mg tablet 7.5 mg PO DAILY PRN (Reason: pain) Qty: 30 0RF Rx Instructions: can increase to 2 tablets (15 mg) once daily as needed. take with food. lisinopril 40 mg tablet See Rx Instructions .ROUTE .COMPLEX Qty: 30 1RF Dose Instruction: TAKE 1 TABLET BY MOUTH EVERY DAY -MONITOR BLOOD PRESSURE 2X DAILY BEFORE COFFEE, STIMULANT, BP MED Rx Instructions: TAKE 1 TABLET BY MOUTH EVERY DAY -MONITOR BLOOD PRESSURE 2X DAILY BEFORE COFFEE, STIMULANT, BP MED albuterol sulfate 90 mcg/actuation HFA aerosol inhaler See Rx Instructions .ROUTE .COMPLEX Qty: 8.5 2RF Dose Instruction: INHALE 2 PUFFS FOUR TIMES DAILY Rx Instructions: INHALE 2 PUFFS FOUR TIMES DAILY budesonide-formoterol [Symbicort] 160-4.5 mcg/actuation HFA aerosol inhaler 1 inh inhalation DAILY Qty: 10.2 2RF Rx Instructions: Take one inhalation once daily. Follow-up/Referrals: Treva Martell APRN [Primary Care Provider] - Time of Disposition: 20:05
--- NOTE | 2024-09-05 18:55 | PC.NURSE ---
ASSUMED CARE. REPORT RECEIVED FROM THIERRY BECKWITH.
[2024-09-05] MEDS: KETOROLAC 30 MG/ML VIAL (*BKC) IM (19:14)
--- NOTE | 2024-09-05 19:44 | PC.NURSE ---
PATIENT REPORTS THAT SHE IS FEELING BETTER. WILL UPDATE PROVIDER
[2024-09-05 20:15] VITALS: BP 168/88; PULSE 74; RESP 18; O2SAT 98
== END 2024-09-05 20:15 | disposition home or self-care (01) ==
PROVIDERS: Emergency Provider Emergency Medicine; PCP Nurse Practitioner Family
DX: S39.012A Strain of muscle, fascia and tendon of lower back, initial encounter (principal); X50.0XXA Overexertion from strenuous movement or load, initial encounter; I10 Essential (primary) hypertension; E78.00 Pure hypercholesterolemia, unspecified; F32.A Depression, unspecified; F41.9 Anxiety disorder, unspecified; F17.210 Nicotine dependence, cigarettes, uncomplicated; F12.90 Cannabis use, unspecified, uncomplicated
CPT/HCPCS: 96372; 99283; J1885

== ENCOUNTER 2024-09-22 12:10 | Outpatient (CLI) | payer OTHER, SELFPAY ==
--- NOTE | 2024-09-22 12:11 | ECG_ITS ---
Test Date: 2024-09-22 12:32:25 Measurements Intervals [place] Rate: 55 P: -39 [place]: 112 QRS: 71 QRSD: 93 T: 75 QT: 425 QTc: 408 Interpretive Statements SINUS BRADYCARDIA WITH SHORT [place] INTERVAL No previous ECG available for comparison Electronically Signed On 09-22-2024 23:56:20 WOOD HACKER by Kwabena Perez M.D.
--- OUTSIDE RECORDS SUMMARY | 2024-09-22 12:13 | XMS_ITS | Clinical Summary ---
Author Organization [facility] Address [address] [place] [address]. [place], [place] [id number] [place] [id number] Care Team Providers Care Viscosity Inspector Name Role Phone Stacie Ferreira MD Primary Care Provider Allergies Active Allergy Reactions Criticality Noted Date Comments Sulfa Antibiotics Hives 12/07/2018 Medications cefdinir 300 MG Cap capsule Take 1 capsule (300 mg total) by mouth 2 (two) times daily. 20 capsule 12/24/2020 Active naproxen 500 MG tablet Take 1 tablet (500 mg total) by mouth 2 (two) times daily as needed (ear pain). 30 tablet 12/24/2020 Active pseudoephedrine ER 120 MG 12 hr tablet Take 1 tablet (120 mg total) by mouth every 12 (twelve) hours. 28 tablet 12/24/2020 Active Social History Tobacco Use Types Packs/Day Years Used Date Smoking Tobacco: Every Day Cigarettes 0.5 20 Smokeless Tobacco: Never Alcohol Use Standard Drinks/Week Comments No 0 (1 standard drink = 0.6 oz pur e alcohol) AUDIT-C Answer Date Recorded Frequency of Alcohol Consumption Never 12/07/2018 Average Number of Drinks Not on file 019 Frequency of Binge Drinking Not on file 11/28 Comments No Sex and Gender Information Value Date Recorded Sex Assigned at Not on file Legal Sex Female 5:36 PM CDT Gender Identity Not on file Sexual Orientation Not on file Last Filed Vital Signs Vital Sign Reading Time Taken Comments Blood Pressure 147/101 12/24/2020 6:24 AM CDT Pulse 82 12/24/2020 6:24 AM CDT Temperature 36.7 ??C (98.1 ??F) 12/24/2020 6:24 AM CD T Respiratory Rate 18 12/24/2020 6:24 AM CDT Oxygen Saturation 97% 12/24/2020 6:24 AM CDT Inhaled Oxygen Concentration - - Weight 110.3 kg (243 lb 4 oz) 12/07/2018 9:15 AM CDT Height 175.3 cm (5' 9 ) 12/24/2020 6:24 AM CDT Body Mass Index 35.92 12/07/2018 9:15 AM CDT Plan of Treatment Health Maintenance Due Date Last Done Comments Cervical Cancer Screening Pa p Smear (Age 30 to 64) Every 3 Years 1984 Annual Physical 1987 Pneumococcal Vaccine: Pediat rics (0 to 5 Years) and At-Risk Patients (6 to 64 Years) (1 of 2 - PCV) 1990 Hepatitis C 2002 DTaP, Tdap and Td Vaccines ( 1 - Tdap) 2003 Hepatitis B Vaccines (1 of 3 - 19+ 3-dose series) 2003 COVID-19 Vaccine (2 - 2023-2 5 season) 2024 12/04/2020 Influenza Adult (#1) 2024 Mammogram Screening 2024 Cervical Cancer Screening Pa p with HPV Testing (Age 30 to 64) Every 5 Years 09/22/2027 09/22/2022 Cervical Cancer Screening with HPV 09/22/2027 HPV Vaccines Aged Out No longer eligi ble based on patient's age to complete this topic Meningococcal Vaccine Aged Out No michael tiarra eligible based on patient's age to complete this topic RSV Immunizations Under 20 Months Aged Out No longer eligible based on patient's age to complete this topic Procedures Procedure Name Priority Date/Time Associated Diagnosis Comments HUMAN PAPILLOMAVIRUS, HIGH-RISK TYPES Routine 09/22/2022 8:00 AM 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 Comment:SEE CYTOLOGY REPORT 09/22/2022 8:00 AM ENTERPRISE SALES EXECUTIVE us Provider Non-Staff PATHOLOGY/CYTOLOGY ORDERABLES Final Result [facility] [address] [place] [address], from Last 3 Months or Most Recently Relevant to Health Maintenance Insurance [place] Care Teams Viscosity Inspector Relationship Specialty Start Date End Date Stacie Ferreira MD [facility] [address] [place] [id number] PCP - General FAMILY PRACTICE 12/24/20
--- OUTSIDE RECORDS SUMMARY | 2024-09-22 12:14 | XMS_ITS | Referral Summary ---
Author Organization [facility] Address [address] [place] [address] Care Team Providers Care Deputy County Counsel Name Role Phone Treva Martell NP Primary Care Provider [phone] Allergies Active Allergy Reactions Criticality Noted Date Comments Sulfamethoxazole-Trimethoprim Hives Medium 2017 Sulfa (Sulfonamide Antibiotics) Hives,Rash Medium 04/30 Hives Medications clonazePAM (KlonoPIN) 2 mg disintegrating tablet Take 1 tablet (2 mg total) by mouth 2 (two) times a day as needed for anxiety Active albuterol HFA (PROVENTIL HFA,VENTOLIN HFA,PROAIR HFA) 90 mcg/actuation inhaler Inhale 2 puffs every 4 (four) hours as needed for wheezing 1 each 07/21/20 21 Active budesonide-formot Gildardo (SYMBICORT) 80-4.5 mcg/actuation inhaler Inhale 2 puffs 2 (two) times a day Rinse mouth with water after use. Do not swallow. 1 each 07/01/20 22 Active Additional Information Patient not taking.Reported on 04/18/2024 albuterol HFA (PROVENTIL HFA,VENTOLIN HFA,PROAIR HFA) 90 mcg/actuation inhaler Inhale 2 puffs every 4 (four) hours as needed for wheezing 6.7 g 07/01/20 22 Active venlafaxine (EFFEXOR) 75 mg tablet Take 2 tablets (150 mg total) by mouth daily Active lisinopriL (PRINIVIL,ZESTRIL ) 20 mg tablet Take 2 tablets (40 mg total) by mouth daily Active metFORMIN (GLUCOPHAGE) 850 mg tablet Take 1 tablet (850 mg total) by mouth daily with breakfast Active valACYclovir (VALTREX) 1 gram tablet Take 1 tablet (1,000 mg total) by mouth daily Active acetaminophen 500 mg capsuleIndication s:Pain Take 2 capsules (1,000 mg total) by mouth every 6 (six) hours 04/20/20 Active simethicone (MYLICON) 80 mg chewable tabletIndications :Flatulence Take 1 tablet (80 mg total) by mouth 4 (four) times a day as needed for flatulence (bloating, fullness, and discomfort of gastrointestinal gas) 04/20/20 Active docusate sodium (COLACE) 100 mg capsuleIndication s:constipation,St ool Softener Take 1 capsule (100 mg total) by mouth 2 (two) times a day 04/20/20 Active oxyCODONE (ROXICODONE) 5 mg immediate release tabletIndications :Pain Take 1 tablet (5 mg total) by mouth every 4 (four) hours as needed for pain 10 tablet 04/20/20 24 Active Active Problems Problem Noted Date Diagnosed Date Abnormal uterine bleeding 04/18/2024 S/P MADYSON (total abdominal hysterectomy) COVID-19 07/21/2021 Lesion of oral mucosa 05/13/2015 Social History Tobacco Use Types Packs/Day Years Used Date Smoking Tobacco: Every Day Cigarettes Smokeless Tobacco: Never Tobacco Cessation:Ready to Q uit: Not Asked; Counseling Given: Not Answered Alcohol Use Standard Drinks/Week Comments No 0 (1 standard drink = 0.6 oz pur e alcohol) [facility] Utilities Answer Date Recorded In the past 12 months has [employer], [employer], or water [employer] threatened to shut off services in your home? No 04/19/2024 Social Connection and Isolat ion Panel [NHANES] Answer Date Recorded In a typical week, how many times do you talk on the phone with family, friends, or neighbors? More than three times a week 04/19/2024 How often do you get togethe r with friends or relatives? Twice a week 04/19/2024 How often do you attend [facility] or adventist services? Never 04/19/2024 Do you belong to any clubs o r organizations such as catholic groups, unions, fraternal or athletic groups, or school groups? No 04/19/2024 How often do you attend meet ings of the clubs or organizations you belong to? Never 04/19/2024 Are you , , di vorced, , never , or living with a partner? Never 04/19/2024 AUDIT-C Answer Date Recorded Q1: How often do you have a drink containing alcohol? Never 04/18/2024 Q2: How many drinks containi ng alcohol do you have on a typical day when you are drinking? Patient does not drink Q3: How often do you have si x or more drinks on one occasion? Never 04/18/2024 Overall Financial Resource Strain (CARDIA) Answe r Date Recorded How hard is it for you to pa y for the very basics like food, housing, medical care, and heating? Not very hard 04/19/2024 Hunger Vital Sign Answer Date Recorded Within the past 12 months, y ou worried that your food would run out before you got the money to buy more. Never true 04/19/20 24 Within the past 12 months, t he food you bought just didn't last and you didn't have money to get more. Never true 04/19/2024 PRAPARE - Transportation Answer Date Re corded In the past 12 months, has l ack of transportation kept you from medical appointments or from getting medications? No 03/31 In the past 12 months, has l ack of transportation kept you from meetings, work, or from getting things needed for daily living? No 04/19/2024 Housing Stability Vital Sign Answer Cristofer e Recorded In the last 12 months, was t here a time when you were not able to pay the mortgage or rent on time? No 04/19/2024 In the past 12 months, how m any times have you moved where you were living? 0 04/19/2024 At any time in the past 12 m [facility], were you homeless or living in a halfway (including now)? No 04/19/2024 Personal Safety Answer Date Recorded Have you ever been in or are you currently in a harmful physical or emotional relationship or is someone making you feel afraid or unsafe? 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 Gender Identity Not on file Sexual Orientation Not on file Last Filed Vital Signs Vital Sign Reading Time Taken Comments Blood Pressure 171/92 04/20/2024 8:58 AM CDT Pulse 91 04/20/2024 8:58 AM CDT Temperature 36.9 ??C (98.4 ??F) 04/20/2024 8:58 AM CD T Respiratory Rate 18 04/20/2024 8:58 AM CDT Oxygen Saturation 94% 04/20/2024 8:58 AM CDT Inhaled Oxygen Concentration - - Weight 125.5 kg (276 lb 10.8 oz) 04/18/2024 3:10 PM CDT Height 175.3 cm (5' 9 ) 04/18/2024 3:10 PM CDT Body Mass Index 40.86 04/18/2024 3:10 PM CDT Plan of Treatment Not on file Medical Devices Implanted Type Area Help Desk Engineer Device Identifier Shelf Expiration Date Model / Serial / Lot Screw And Pin Screw Left: Hand Procedures Procedure Name Priority Date/Time Associated Diagnosis Comments HEPATITIS C ANTIBODY STAT 04/18/2024 12:56 PM CDT Exposure to blood-borne pathogen from Last 3 Months or Most Recently Relevant to Health Maintenance Results * Hepatitis C antibody Blood (04/18/2024 12:56 PM CDT) Hep C Ab Nonreactive Nonreactive Comment: Antibodies to HCV not detected. Does NOT exclude the possibility of recent exposure to HCV. Current interpretive data was last revised on 22 Interpretive Data Nonreactive: Antibodies to HCV not detected. Does NOT exclude the possibility of recent exposure to HCV. Equivocal: Equivocal for HCV antibodies. Supplemental molecular testing will be automatically performed to determine infection status in accordance with current CDC screening recommendations. ?? Reactive: Positive for HCV antibodies. ??This may represent current or past HCV infection. Supplemental molecular testing will be automatically performed to determine ??current infection status in accordance with current CDC screening recommendations. Interpretive data was last revised on 2019. Blood 04/18/2024 12:5 6 PM CDT 04/18/2024 2:26 PM CDT Nadia OCHOANER MH - 04/18/2024 2:58 PM CDT Bill to [facility] - 1520 Patient is employed by/enrolled at:->[facility] us Gus Regan MD LAB MICROBIOLOGY - GENERAL OR DERABLES Edited Result - Final BEATRIZ MH [address] [facility] Department [place] [address] from Last 3 Months or Most Recently Relevant to Health Maintenance Insurance [facility] MEDICAID [facility] [id number] [place] [address] Advance Directives For more information, please contact: [phone] * Full Code (Latest Code Status on File) Date Activated Date Inactivated Comments 04/18/2024 3:12 PM 04/20/2024 2:43 PM Care Teams Deputy County Counsel Relationship Specialty Start Date End Date Treva Martell NP [address] [place] [address] PCP - General Family Medicine 04/07/24
--- OUTSIDE RECORDS SUMMARY | 2024-09-22 12:14 | XMS_ITS | Clinical Summary ---
Author Organization [facility] Address [address] [place] [address] Care Team Providers Care Director Service Name Role Phone Treva Martell NP Primary Care Provider [phone] Allergies Active Allergy Reactions Criticality Noted Date [...] mouth 2 (two) times a day 04/20/20 24 Active oxyCODONE (ROXICODONE) 5 mg immediate release tabletIndications :Pain Take 1 tablet (5 mg total) by mouth every 4 (four) hours as needed for pain 10 tablet 04/20/20 24 Active Active Problems Problem Noted Date Diagnosed Date Abnormal uterine bleeding 04/18/2024 S/P MADYSON (total abdominal hysterectomy) COVID-19 07/21/2021 Lesion of oral mucosa 05/13/2015 Surgical History Surgery Date Site/Laterality Comments HAND SURGERY Left EXPLORATORY LAPAROTOMY 23 years ago. removed a fallopian tube and ovary, unsure of which one. Medical History Medical History Date Comments Asthma COPD (chronic obstructive pulmonary disease) (HC C) Hypertension Prediabetes Social History Tobacco Use Types Packs/Day Years Used Date Smoking Tobacco: Every Day Cigarettes Smokeless Tobacco: Never Tobacco Cessation:Ready to Q uit: Not Asked; Counseling Given: Not Answered Alcohol Use Standard Drinks/Week Comments No 0 (1 standard drink = 0.6 oz pur e alcohol) [facility] Utilities Answer Date Recorded In the past 12 months has [employer], [employer], oil, or water [employer] threatened to shut off services in your [...] week 04/19/2024 How often do you attend chur ch or orthodox services? Never 04/19/2024 Do you belong to any clubs o r organizations such as alevism groups, unions, fraternal or athletic groups, or [...] any time in the past 12 m [facility], were you homeless or living in a correction (including now)? No 04/19/2024 Personal Safety Answer Date Recorded Have you ever been in or are you currently in a harmful physical or emotional relationship or is someone making you feel afraid or unsafe? 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 DIRECTOR OF FIELD SERVICE Gender Identity Not on file Sexual Orientation Not on file Obstetrics History Last Filed Vital Signs Vital Sign Reading [...] 04/18/2024 3:10 PM CDT Plan of Treatment Health Maintenance Due Date Last Done Comments Breast Cancer Screening-Mammogram 1984 Depression Screening 1984 Pneumococcal vaccine <65 (1 of 2 - PCV) 1990 Varicella Vaccines (1 of 2 - 13+ 2-dose series) 1997 Hepatitis B Screening 2002 Regular Well Visit/Exam 18-64 2002 Covid-19 Vaccine (2 - 2023-2 5 season) 2024 12/04/2020 Influenza Vaccine (#1) 2024 06/20/2020 DTaP/Tdap/Td Vaccine (2 - Td or Tdap) 07/27/2033 07/27/2023 Hepatitis C Screening Completed 04/18/2024 HPV Vaccines Aged Out No longer eligi ble based on patient's age to complete this topic Medical Devices Implanted Type Area Shipper And Receiving Device Identifier Shelf Expiration Date Model / [...] 6 PM CDT 04/18/2024 2:26 PM CDT Narrative BEATRIZ - 04/18/2024 2:58 PM CDT Bill to [facility] - 1520 Patient is employed by/enrolled at:[facility] Gus Regan MD LAB MICROBIOLOGY - GENERAL OR DERABLES Edited Result - Final BEATRIZ [address] [facility] Department [place] [address] from Last 3 Months or Most Recently Relevant to Health Maintenance Insurance [facility] MEDICAID [facility] Advance Directives For more information, please contact: [phone] * Full Code (Latest Code Status on File) Date Activated Date Inactivated Comments 04/18/2024 3:12 PM 04/20/2024 2:43 PM Care Teams Director Service Relationship Specialty Start Date End Date Treva Martell NP [address] [place] [address] PCP - General Family Medicine 04/07/24
[2024-09-22 12:46] LABS: Basophils Absolute Auto 0.06 K/mm3 (0.00-0.10); Basophils Percent Auto 0.6 % (0.0-1.0); Eosinophils Absolute Auto 0.21 K/mm3 (0.02-0.50); Hematocrit 43.9 % (35.0-49.0); Hemoglobin 14.2 g/dL (12.0-15.0); Hemoglobin A1C 5.7 % (<5.7); Immature Granulocyte Absolute 0.06 K/mm3 (0.00-0.00); Immature Granulocyte Percent A 0.6 % (0.0-0.0); Lymphocytes Absolute Auto 2.45 K/mm3 (1.10-4.50); Lymphocytes Percent Auto 22.8 % (18.0-42.0); Mean Corpuscular HGB Conc 32.3 g/dL (32-36); Mean Corpuscular Hemoglobin 27.3 pg (27.0-31.0); Mean Corpuscular Volume 84.4 fL (78.0-102.0); Mean Platelet Volume 11.7 fl (9.2-11.8); Monocytes Absolute Auto 0.63 K/mm3 (0.10-0.90); Monocytes Percent Auto 5.9 % (2.0-11.0); Neutrophils Absolute Auto 7.34 K/mm3 (1.70-7.20); Neutrophils Percent Auto 68.1 % (50.0-70.0); Platelet Count Result 190 K/mm3 (150-420); White Blood Count 10.8 K/mm3 (4.8-10.8)
[2024-09-22 12:55] LABS: Alanine Aminotransferase 19 U/L (14-59); Albumin Level 3.7 g/dL (3.4-5.0); Alkaline Phosphatase 79 U/L (46-116); Anion Gap 10 mmol/L (4-12); Aspartate Amino Transferase < 10 U/L (15-37); Bilirubin,Total 0.4 mg/dL (0.00-1.00); Blood Urea Nitrogen 11 mg/dL (7-18); Calcium 8.9 mg/dL (8.5-10.1); Carbon Dioxide 26 mmol/L (21-32); Chloride 103 mmol/L (98-108); Cholesterol 187 mg/dL (0-200); Estimated Glomerular Filt Rate > 60; Glucose 91 mg/dL (70-99); HDL Direct 36 mg/dL (40-60); LDL Cholesterol Calculated 98 mg/dL (<130); Osmolality Calculated 287 mOsm/kg (285-295); Potassium 4.4 mmol/L (3.5-5.1); Sodium 139 mmol/L (136-145); Triglycerides 264 mg/dL (0-150)
[2024-09-22 13:03] LABS: Thyroid Stimulating Hormone Reflex 1.66 u/IU/mL (0.36-3.74)
== END 2024-09-22 12:11 | disposition home or self-care (01) ==
PROVIDERS: PCP Nurse Practitioner Family; Visit Provider Nurse Practitioner Family
DX: Z00.00 Encounter for general adult medical examination without abnormal findings (principal); R79.89 Other specified abnormal findings of blood chemistry; Z86.59 Personal history of other mental and behavioral disorders; R00.1 Bradycardia, unspecified
CPT/HCPCS: 36415; 80053; 80061; 83036; 84443; 85025; 93005

== ENCOUNTER 2024-11-06 10:49 | Outpatient (CLI) | payer OTHER, SELFPAY ==
--- OUTSIDE RECORDS SUMMARY | 2024-11-06 12:57 | XMS_ITS | Clinical Summary ---
Author Organization [facility] Address [facility] access [facility] [place] [address] Care Team Providers Care Archeologist Name Role Phone Stacie Ferreira MD Primary [...] 82 12/24/2020 6:24 AM CDT Temperature 36.7 C (98.1 F) 12/24/2020 6:24 AM CDT Respiratory Rate 18 12/24/2020 6:24 AM CDT [...] patient's age to complete this topic Meningococcal B Vaccine Aged Out No l onger eligible based on patient's age to complete this topic Meningococcal Vaccine Aged Out No michael tiarra eligible based on patient's age to complete this topic RSV Immunizations Under 20 Months Aged Out No longer eligible based on patient's age to complete this topic Procedures Procedure Name Priority Date/Time Associated Diagnosis Comments HUMAN PAPILLOMAVIRUS, HIGH-RISK TYPES Routine 09/22/2022 8:00 AM PROCESS DESIGN CHEMICAL ENGINEER from Last 3 Months or Most Recently Relevant to Health Maintenance Results * HUMAN PAPILLOMAVIRUS, HIGH-RISK TYPES (09/22/2022 8:00 AM PROCESS DESIGN CHEMICAL ENGINEER) SPEC DESCRIPTION CERVIX 09/24/19 23 2:53 PM PROCESS DESIGN CHEMICAL ENGINEER [facility] HPV DNA HIGH RISK NEGATIVE NEGATIVE 09/25/2022 12:27 PM PROCESS DESIGN CHEMICAL ENGINEER [facility] Comment:SEE CYTOLOGY REPORT 09/22/2022 8:00 AM PROCESS DESIGN CHEMICAL ENGINEER us Provider Non-Staff PATHOLOGY/CYTOLOGY ORDERABLES Final Result [facility] [address] [place] [address], from Last 3 Months or Most Recently Relevant to Health Maintenance Insurance [facility] Care Teams Archeologist Relationship Specialty Start Date End Date Stacie Ferreira MD [facility] [address] [place] [address] PCP - General FAMILY PRACTICE 12/24/20
--- OUTSIDE RECORDS SUMMARY | 2024-11-06 12:58 | XMS_ITS | Referral Summary ---
Author Organization [facility] Address [address] [place] [address] Care Team Providers Care Lan Specialist Name Role Phone Treva Martell NP Primary Care Provider [phone] Allergies Active Allergy Reactions Criticality Noted Date [...] drink = 0.6 oz pur e alcohol) [facility] Utilities Answer Date Recorded In the past 12 months has [employer], [employer], or water [employer] threatened to shut off services in your [...] week 04/19/2024 How often do you attend [facility] or sabianist services? Never 04/19/2024 Do you belong to any clubs o r organizations such as advent groups, unions, fraternal or athletic groups, or [...] any time in the past 12 m [facility], were you homeless or living in a long term (including now)? No 04/19/2024 Personal Safety Answer Date Recorded Have you ever been in or are you currently in a harmful physical or emotional relationship or is someone making you feel afraid or unsafe? 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 Gender Identity Not on file Sexual Orientation Not on file Last Filed Vital Signs Vital Sign Reading Time Taken Comments Blood Pressure 171/92 04/20/2024 8:58 AM CDT Pulse 91 04/20/2024 8:58 AM CDT Temperature 36.9 C (98.4 F) 04/20/2024 8:58 AM CDT Respiratory Rate 18 04/20/2024 8:58 AM CDT Oxygen Saturation 94% 04/20/2024 8:58 AM CDT Inhaled Oxygen Concentration - - Weight 125.5 kg (276 lb 10.8 oz) 04/18/2024 3:10 PM CDT Height 175.3 cm (5' 9 ) 04/18/2024 3:10 PM CDT Body Mass Index 40.86 04/18/2024 3:10 PM CDT Plan of Treatment Not on file Medical Devices Implanted Type Area Certified Legal Investigator Device Identifier Shelf Expiration Date Model / [...] in accordance with current CDC screening recommendations. Reactive: Positive for HCV antibodies. This may represent current or past HCV infection. Supplemental molecular testing will be automatically performed to determine current infection status in accordance with current CDC screening recommendations. Interpretive data was last revised on 2019. Blood 04/18/2024 12:5 6 PM CDT 04/18/2024 2:26 PM CDT Narrative GABRIELANER - 04/18/2024 2:58 PM CD[facility] Patient is employed by/enrolled at:->[facility] Gus Regan MD LAB MICROBIOLOGY - GENERAL OR DERABLES Edited Result - Final BEATRIZ MH [address] [facility] Department [place] [address] from Last 3 Months or Most Recently Relevant to Health Maintenance Insurance [facility] MEDICAID [facility] Advance Directives For more information, please contact: [phone] * Full Code (Latest Code Status on File) Date Activated Date Inactivated Comments 04/18/2024 3:12 PM 04/20/2024 2:43 PM Care Teams Lan Specialist Relationship Specialty Start Date End Date Treva Martell NP [address] [place] [address] PCP - General Family Medicine 04/07/24
--- OUTSIDE RECORDS SUMMARY | 2024-11-06 12:58 | XMS_ITS | Clinical Summary ---
Author Organization [facility] Address [address] [place] [address] Care Team Providers Care Director Digital Analytics Name Role Phone Treva Martell NP Primary Care Provider [phone] Allergies Active Allergy Reactions Criticality Noted Date [...] drink = 0.6 oz pur e alcohol) [facility] Utilities Answer Date Recorded In the past 12 months has [employer], [employer], oil, or water [employer] threatened to shut off services in your [...] often do you attend chur ch or nondenominational services? Never 04/19/2024 Do you belong to any clubs o r organizations such as hoahaoism groups, unions, fraternal or athletic groups, or [...] any time in the past 12 m [facility], were you homeless or living in a m[facility]p (including now)? No 04/19/2024 Personal Safety Answer Date Recorded Have you ever been in or are you currently in a harmful physical or emotional relationship or is someone making you feel afraid or unsafe? 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 DIRECTOR OF CARDIOPULMONARY SERVICES Gender Identity Not on file Sexual Orientation [...] Breast Cancer Screening-Mammogram 1984 Depression Screening 1984 Varicella Vaccines (1 of 2 - 13+ 2-dose series) 1997 Hepatitis B Screening 2002 Regular Well Visit/Exam 18-64 2002 Pneumococcal vaccine <65 (1 of 2 - PCV) 2003 Covid-19 Vaccine (2 - 2023-2 5 season) 2024 12/04/2020 Influenza Vaccine (#1) 2024 06/20/2020 DTaP/Tdap/Td Vaccine (2 - Td or Tdap) 07/27/2033 07/27/2023 Hepatitis C Screening Completed 04/18/2024 HPV Vaccines Aged Out No longer eligi ble based on patient's age to complete this topic Medical Devices Implanted Type Area Tafe Teacher Device Identifier Shelf Expiration Date Model / [...] - 04/18/2024 2:58 PM CDT Bill to [facility] 15[address] Patient is employed by/enrolled at:->[facility] us Gus Regan MD LAB MICROBIOLOGY - GENERAL OR DERABLES Edited Result - Final BEATRIZ [address] [facility] Department [place] [address] from Last 3 Months or Most Recently Relevant to Health Maintenance Insurance [facility] MEDICAID [facility] Advance Directives For more information, please contact: [phone] * Full Code (Latest Code Status on File) Date Activated Date Inactivated Comments 04/18/2024 3:12 PM 04/20/2024 2:43 PM Care Teams Director Digital Analytics Relationship Specialty Start Date End Date Treva Martell NP [address] [place] [address] PCP - General Family Medicine 04/07/24
[2024-11-08 01:43] LABS: Vitamin D 25 Hydroxy 58 ng/mL (30-100)
== END 2024-11-06 10:50 | disposition home or self-care (01) ==
LOC: CHSLAB 10:50
PROVIDERS: PCP Nurse Practitioner Family; Visit Provider Nurse Practitioner Family
DX: E55.9 Vitamin D deficiency, unspecified (principal)
CPT/HCPCS: 36415; 82306

== ENCOUNTER 2024-11-27 08:57 | Outpatient (CLI) | payer OTHER, SELFPAY ==
--- NOTE | 2024-11-27 09:02 | EST_ITS ---
Patient Info Name: Kristi Chicas Age: 39 years : 1985 Gender: Female Ht: 69 in Wt: 258 lbs BSA: 2.44 m2 HR: 77 bpm BP: 106 / 70 mmHg Exam Date: 11/27/2024 10:41 AM Exam Location: Echo Lab Patient Status: Outpatient Admit Date: 11/27/2024 Staff Ordering Physician: Ezequiel Abdi DO Attending Provider: Ezequiel Abdi DO Exercise Technologist: RADHA Munoz Exercise Physician: Ezequiel Abdi DO Exam Type: CA stress test treadmill Study Info Indications R07.9 - Chest pain, unspecified A treadmill exercise stress test was performed. Summary 1. 1. Negative Shashank exercise stress test for ischemic ST changes by ECG criteria. 2. 2. Reduced functional capacity, achieving 7 METs of workload. 3. 3. Appropriate HR response to exercise. 4. 4. Appropriate HR recovery at 1 minute post exercise. 5. 5. No imaging with stress testing. 6. 6. Patient informed of the above results. Protocol: Shashank Stress ECG Details Stage: REST Duration (min): 0 min : 50 sec Speed (mph): 0.0 Grade (%): 0 HR (bpm): 63 SBP (mmHg): --- DBP (mmHg): --- METS: --- Stage: REST Duration (min): 1 min : 53 sec Speed (mph): 0.0 Grade (%): 0 HR (bpm): 67 SBP (mmHg): --- DBP (mmHg): --- METS: --- Stage: REST Duration (min): 9 min : 29 sec Speed (mph): 0.0 Grade (%): 0 HR (bpm): 59 SBP (mmHg): 106 DBP (mmHg): 70 METS: --- Stage: STAGE 1 Duration (min): 1 min : 0 sec Speed (mph): 1.7 Grade (%): 10 HR (bpm): 103 SBP (mmHg): 106 DBP (mmHg): 70 METS: --- Stage: STAGE 1 Duration (min): 2 min : 0 sec Speed (mph): 1.7 Grade (%): 10 HR (bpm): 121 SBP (mmHg): 106 DBP (mmHg): 70 METS: --- Stage: STAGE 1 Duration (min): 3 min : 0 sec Speed (mph): 1.7 Grade (%): 10 HR (bpm): 130 SBP (mmHg): 145 DBP (mmHg): 77 METS: --- Stage: STAGE 2 Duration (min): 1 min : 0 sec Speed (mph): 2.5 Grade (%): 12 HR (bpm): 146 SBP (mmHg): 145 DBP (mmHg): 77 METS: --- Stage: STAGE 2 Duration (min): 2 min : 0 sec Speed (mph): 2.5 Grade (%): 12 HR (bpm): 158 SBP (mmHg): 145 DBP (mmHg): 77 METS: --- Stage: STAGE 2 Duration (min): 2 min : 0 sec Speed (mph): 2.5 Grade (%): 12 HR (bpm): 158 SBP (mmHg): 145 DBP (mmHg): 77 METS: --- Stage: RECOVERY Duration (min): 0 min : 40 sec Speed (mph): 0.0 Grade (%): 0 HR (bpm): 153 SBP (mmHg): 145 DBP (mmHg): 77 METS: --- Rest HR: 59 bpm Peak HR: 161 bpm Rest Sys BP: 106 mmHg Peak Sys BP: 145 mmHg Max Pred HR: 180 bpm % Max Pred HR: 89 % Target HR: 153 bpm Max RPP: 23,345 bpm*mmHg Knight Score: -4 Termination Reason: Reached target heart rate or workload Cardiac Symptoms: Shortness of breath Max ST Seg Deviation: -1.80 mm Total Time: 5 min : 0 sec Rest Randall BP: 70 mmHg Peak Randall BP: 77 mmHg Angina Score: None Total METS: 7.1 Resting ECG Sinus bradycardia. Stress ECG No ST changes. Arrhythmias None. Report Signatures
--- NOTE | 2024-11-27 09:02 | ECHO_ITS ---
Patient Info Name: Kristi Chicas Age: 39 years : 1985 Gender: Female Ht: 69 in Wt: 255 lbs BSA: 2.42 m2 HR: 59 bpm BP: 126 / 91 mmHg Technical Quality: Fair Exam Date: 11/27/2024 9:04 AM Exam Location: Echo Lab Patient Status: Outpatient Admit Date: 11/27/2024 Staff Ordering Physician: Ezequiel Abdi DO [employer] Logger: Nikky Cast RDCS Attending Provider: Ezequiel Abdi DO Referring Physician: Jin COTE; Exam Type: CA echo doppler color flow Study Info Indications R06.09 - Other forms of dyspnea Complete two-dimensional, color flow and Doppler transthoracic echocardiogram is performed. Summary 1. Complete two-dimensional, color flow and Doppler transthoracic echocardiogram is performed. 2. Left ventricular chamber dimension is normal. 3. Left ventricular systolic function is normal, estimated at 60-65%. 4. There is mild concentric increased left ventricular wall thickness. 5. The left ventricular diastolic function is abnormal. 6. E/e' 11 is mildly elevated. 7. Left atrial chamber dimension is mildly enlarged. 8. There is trace mitral valve regurgitation. 9. No pulmonary hypertension, estimated pulmonary arterial systolic pressure is 26 mmHg. Left Ventricle E/e' 11 is mildly elevated. Left ventricular chamber dimension is normal. Left ventricular systolic function is normal, estimated at 60-65%. There is mild concentric increased left ventricular wall thickness. The left ventricular diastolic function is abnormal. Right Ventricle Right ventricular chamber dimension is normal. Right ventricular systolic function is normal. Left Atria Left atrial chamber dimension is mildly enlarged. Right Atria Right atrial chamber dimension is normal. Aortic Valve The aortic valve is trileaflet. There is no aortic valve stenosis. There is no aortic valve regurgitation. Pulmonic Valve There is no pulmonic regurgitation. Mitral Valve There is no mitral valve stenosis. There is trace mitral valve regurgitation. Tricuspid Valve There is no tricuspid valve regurgitation. No pulmonary hypertension, estimated pulmonary arterial systolic pressure is 26 mmHg. Pericardium/Pleural There is no pericardial effusion. Inferior Vena Cava Normal inferior vena cava with >50% collapse upon inspiration consistent with normal right atrial pressure, 5 mmHg. Aorta The aortic root size at the sinus of Valsalva is normal. Left Ventricular Outflow Tract Name Value Normal LVOT 2D LVOT Diameter 2.0 cm LVOT Doppler LVOT Peak Gradient 7 mmHg LVOT Mean Gradient 4 mmHg LVOT VTI 31 cm LVOT VTI/AV VTI Ratio 0.9 LVOT Stroke Volume 97 ml LVOT CO 5.0 l/min LVOT CI 2.1 l/min/m2 Pulmonic Valve Name Value Normal RVOT Doppler RVOT Peak Gradient 3 mmHg PV Doppler PV Peak Gradient 5 mmHg Mitral Valve Name Value Normal MV Doppler MV Decel Anson 433 cm/s2 MV PHT 74 ms MV Area (PHT) 3.0 cm2 4.0-5.0 MV Diastolic Function MV E Peak Velocity 110 cm/s MV A Peak Velocity 56 cm/s MV E/A 2.0 MV Decel Time 254 ms Tricuspid Valve Name Value Normal TV Regurgitation Doppler TR Peak Velocity 229 cm/s TR Peak Gradient 21 mmHg Estimated PAP/RSVP RA Pressure 5 mmHg <=5 PA Systolic Pressure 26 mmHg <36 RV Systolic Pressure 26 mmHg <36 Aorta Name Value Normal Ascending Aorta Ao Root Diameter (MM) 2.9 cm Ao Root Diam Index (MM) 1.2 cm/m2 Aortic Valve Name Value Normal AV Doppler AV Peak Velocity 157 cm/s AV Peak Gradient 10 mmHg AV Mean Gradient 5 mmHg AV VTI 35 cm AV Area (Cont Eq VTI) 2.7 cm2 >=3.0 AV Area (Cont Eq Alf) 2.7 cm2 AV Regurgitation 2D LVOT Area 3.2 cm2 Ventricles Name Value Normal LV Dimensions 2D/MM IVS Diastolic Thickness (2D) 1.2 cm 0.6-1.0 IVS Diastole Thickness (MM) 0.9 cm 0.6-0.9 LVID Diastole (2D) 3.5 cm 3.8-5.2 LVID Diastole (MM) 5.4 cm 3.8-5.2 LVIW Diastolic Thickness (2D) 0.8 cm 0.6-0.9 LVIW Diastolic Thickness (MM) 1.0 cm 0.6-0.9 LVID Systole (2D) 2.3 cm 2.2-3.5 LVID Systole (MM) 2.9 cm 2.2-3.5 LVOT Diameter 2.0 cm LV Mass (2D Cubed) 102.88 g 67.00-162.00 LV Mass Index (2D Cubed) 42 g/m2 43-95 Relative Wall Thickness (2D) 0.48 LV Mass (MM Cubed) 192.59 g 67.00-162.00 LV Mass Index (MM Cubed) 80 g/m2 43-95 Relative Wall Thickness (MM) 0.38 LV Fractional Shortening/Ejection Fraction 2D/MM LV Fractional Shortening (2D) 32 % 27-45 LV Fractional Shortening (MM) 46 % 27-45 LV EF (MM Teicholz) 77 % 54-74 LV EF (2D Teicholz) 62 % 54-74 LV Diastolic Volume (4C MOD) 108 ml LV EF (4C MOD) 64 % LV Diastolic Volume (2C MOD) 92 ml LV EF (2C MOD) 70 % LV Diastolic Volume (BP MOD) 101 ml 46-106 LV Diastolic Volume Index (BP MOD) 42 ml/m2 29-61 LV Systolic Volume (BP MOD) 32 ml 14-42 LV Systolic Volume Index (BP MOD) 13 ml/m2 8-24 LV EF (BP MOD) 68 % 54-74 LV Diastolic Length (4C) 9.0 cm LV Systolic Length (4C) 7.0 cm LV Stroke Volume (4C MOD) 69 ml Atria Name Value Normal LA Dimensions LA Dimension (MM) 4.2 cm 2.7-3.8 LA Volume (4C A-L) 73 ml LA Volume (BP A-L) 72 ml RA Dimensions RA Area (4C) 18.4 cm2 <=18.0 Report Signatures
--- OUTSIDE RECORDS SUMMARY | 2024-11-27 09:32 | XMS_ITS | Clinical Summary ---
Author Organization [facility] Address [facility] [place] [address] Care Team Providers Care Motor Polarizer Name Role Phone Stacie Ferreira MD Primary Care Provider [phone] Allergies Active Allergy Reactions Criticality Noted Date [...] PAPILLOMAVIRUS, HIGH-RISK TYPES Routine 09/22/2022 8:00 AM PAYROLL EXAMINER from Last 3 Months or Most Recently Relevant to Health Maintenance Results * HUMAN PAPILLOMAVIRUS, HIGH-RISK TYPES (09/22/2022 8:00 AM PAYROLL EXAMINER) SPEC DESCRIPTION CERVIX 09/24/19 23 2:53 PM PAYROLL EXAMINER [facility] HPV DNA HIGH RISK NEGATIVE NEGATIVE 09/25/2022 12:27 PM PAYROLL EXAMINER [facility] Comment:SEE CYTOLOGY REPORT 09/22/2022 8:00 AM PAYROLL EXAMINER us Provider Non-Staff PATHOLOGY/CYTOLOGY ORDERABLES Final Result [facility] [address] [email or web address] [address], from Last 3 Months or Most Recently Relevant to Health Maintenance Insurance [employer] Care Teams Motor Polarizer Relationship Specialty Start Date End Date Stacie Ferreira MD [facility] [address] [place] [address] PCP - General FAMILY PRACTICE 12/24/20
--- OUTSIDE RECORDS SUMMARY | 2024-11-27 09:32 | XMS_ITS | Clinical Summary ---
Author Organization [facility] Address [address] [place] [address] Care Team Providers Care Consultant Technology Name Role Phone Treva Martell NP Primary Care Provider [phone] Allergies Active Allergy Reactions Criticality Noted Date [...] drink = 0.6 oz pur e alcohol) [facility] Utilities Answer Date Recorded In the past 12 months has [employer], [employer], oil, or water SHERPA assistant threatened to shut off services in your [...] often do you attend chur ch or jain services? 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 Gender Identity Not on file Sexual Orientation [...] this topic Medical Devices Implanted Type Area Superior Court Clerk Device Identifier Shelf Expiration Date Model / [...] - 04/18/2024 2:58 PM CDT Bill to [facility] 15[address] Patient is employed by/enrolled at:->[facility] [facility] us Gus Regan MD LAB MICROBIOLOGY - GENERAL OR DERABLES Edited Result - Final [facility] [address] [facility] [place] [address] from Last 3 Months or Most Recently Relevant to Health Maintenance Insurance [facility] [place] [address] [facility] Advance Directives For more information, please contact: [phone] * Full Code (Latest Code Status on File) Date Activated Date Inactivated Comments 04/18/2024 3:12 PM 04/20/2024 2:43 PM Care Teams Consultant Technology Relationship Specialty Start Date End Date Treva Martell NP [address] [place] [address] PCP - General Family Medicine 04/07/24
--- OUTSIDE RECORDS SUMMARY | 2024-11-27 09:32 | XMS_ITS | Data Portability ---
Author Organization [email or web address] , [facility] Address [address] [place] [address] Assessment No assessment recorded. Plan of Treatment Reminders Order Date Submit Date Provider Last Modified By Organization Details Last Modified Time Details Appointments None recorded. Lab estradiol, serum 2024 025 [facility], [address] [place], [address], 5 11:57:10 FSH (follicle-s timulating hormone), serum 2024 025 [facility], [address] [place] [address], [address], 5 12:35:31 vitamin D, 25-hydroxy, total, serum 2024 025 [facility], [address] [place], [address], 5 11:57:11 biopsy, tissue 2023 024 [facility], [address] [place], [address], 4 16:09:00 test, urine 2023 024 [email or web address] 1 [facility], [address] [place], [address], 4 20:15:19 HPV E6+E7 mRNA, qualitative PCR, cervix 2023 024 [facility] El[facility], [address] [place], [address], 09:22:35 pap, LB 2023 024 NAKINA [facility], [address] [facility], [place], [address], 18:37:24 Referral None recorded. Procedures None recorded. Surgeries None recorded. Imaging US, transvagina l 2023 024 [email or web address] Not available 17:53:49 Medication Orders ketorolac 10 mg tablet 2023 025 NAKINA [id number], [address] [place], [address], 12:27:48 Patient TargetsNo targets recorded. Patient Instructions Encounter Date Encounter Id Patient Instructions Last Modified By Organization Details Last Modified Time 12/20/2023 [id number] body mass index: care instructions Not available 12/20/2023 14:15:32 learning about depression screening Not available 12/20/2023 14:15:31 A healthy lifestyle: care instructions Not available 12/20/2023 14:15:31 substance use disorder: care instructions Not available 12/20/2023 14:15:31 tobacco cessation Not availab le 12/20/2023 14:15:31 control counseling Not available 12/20/2023 14:15:31 Reason for Referral None Reported. Results Created Date Observation Date Name Description Value Unit Range Abnormal Flag Note LastModifiedBy Organization Detail LastModifiedTime 09/07/1909/07/2024 ESTRA DIOL estradiol 18 pg/mL normal Refer ence Range Folli cular Phase : 19-14 4 Mid-C ycle: 64-35 7 Lutea l Phase : 56-21 4 Postm enopa usal: < or = 31 Refer ence range estab lishe d on post- puber zana patie nt popul ation . No pre-p ubert al refer ence range estab lishe d using this assay . For any patie nts for whom low Estra diol level s are antic ipate d (e.g. males , pre-p ubert al child earl and hypog onada l/pos t-men opaus al femal es), the [facility] Inst[facility] t[facility] Estra diol, Ultra sensi tive, LCMSM S assay is recom kim d (orde r code 94977 ). Bita wood note: patie nts being treat ed with the drug fulve stran t (Fasl odex( R)) have demon strat ed signi fican t inter feren ce in immun oassa y metho ds for estra diol measu remen t. The cross react ivity could lead to false ly eleva alex estra diol test resul ts leadi ng to an inapp ropri ate clini aman asses sment of estro gen statu s. [facility] order code 10414 -Estr adiol , Ultra sensi tive LC/MS /MS demon strat es negli gible cross react ivity with fulve stran t. Not Available [employer] [facility] [address] [place], [address], 09/07/2024 11:57:10 09/07/19 25 09/07/2024 VITAM IN D,25- OH,TO ZANA,I A vitamin D,25-oh,tota l,ia 18 NG/mL 30-100 low Vitam in D Statu s 25-OH Vitam in D: Defic iency : <20 ng/mL Insuf ficie ncy: 20 - 29 ng/mL Optim al: > or = 30 ng/mL For 25-OH Vitam in D testi ng on patie nts on D2-goins pplem entat ion and patie nts for whom quant itati on of D2 and D3 fract ions is requi red, the [facility] Assur eD(TM ) 25-OH VIT D, (D2,D 3), LC/MS /MS is recom kim d: order code [id number] (kerry ents >2yrs ). See Note 1 NO COLLE CTION DATE RECEI SARIAH. WE HAVE USED THE DATE THE SPECI MEN WAS RECEI SARIAH BY THIS LABOR ATORY THE COLLE CTION DATE. IF THIS IS INCOR RECT, BITA E CONTA CT CLIEN T SERVI CARLITA. PHONE NUMBE R: [phone] Note 1 For addit ional infor bita monteiro refer to http: //[facility] yanick gomezQue stDia gnost ics.c om/fa q/FAQ 199 (This link is being provi ded for infor kourtney han/ educa jairo cottrell purpo ses only. ) Not Available [employer] [address] [address] [place], [address], 09/07/2024 11:57:11 12/20/1912/22/2023 HPV HIGH RISK HPV high risk Negati ve negati ve normal The HPV High Risk assay is inten ded for use as co-te sting with cytol ogy and not as a subst itute for regul ar cervi aman cytol ogy scree sheila. This assay is not inten ded for use as a scree sheila devic e for women under age 30 with cristal l cervi aman cytol ogy. Not Available [address], [address], 12/23/2023 09:22:35 12/20/19 24 12/23/2023 THINP REP TIS PAP clinical information: normal None given Not Available [facility] [place] [address] [address] [place], [address], 12/23/2023 18:37:24 12/20/19 24 12/23/2023 THINP REP TIS PAP LMP: normal NONE GIVEN Not Available [employer] [address] [address] [place], [address], 12/23/2023 18:37:24 12/20/19 24 12/23/2023 THINP REP TIS PAP prev. Pap: normal NONE GIVEN Not Available [employer] [address] [address] [place], [address], 12/23/2023 18:37:24 12/20/19 24 12/23/2023 THINP REP TIS PAP prev. BX: normal NONE GIVEN Not Available [place] [address] [address] [place], [address], 12/23/2023 18:37:24 12/20/19 24 12/23/2023 THINP REP TIS PAP source: normal Cervi x Not Available [address] [address] [place], [address], 12/23/2023 18:37:24 12/20/19 24 12/23/2023 THINP REP TIS PAP statement of adequacy: normal Satis facto ry for evalu ation . Endoc ervic al/tr ansfo rmati on zone compo nent prese nt. Age and/o r menst rual statu s not provi ded Not Available [address] [address] [place], [address], 12/23/2023 18:37:24 12/20/19 24 12/23/2023 THINP REP TIS PAP interpretati on/result: normal Cytol ogy Resul ts: Negat suad for intra epith elial lesio n or aria gustafson . Not Available [address] [address] [place], [address], 12/23/2023 18:37:24 12/20/19 24 12/23/2023 THINP REP TIS PAP comment: normal This Pap test has been evalu ated with compu ter fernando alex techn ology . Not Available [address] [address] [place], [address], 12/23/2023 18:37:24 12/20/19 24 12/23/2023 THINP REP TIS PAP cytotechnolo gist: normal BKA, CT( CP) CT scree sheila locat ion: [place] [address] [place] [address] Not Available [address] [address] [place], [address], 12/23/2023 18:37:24 12/20/19 24 12/23/2023 THINP REP TIS PAP comment EXPLA NATOR Y NOTE: The Pap is a scree sheila test for cervi aman cance r. It is not a diagn ostic test and is subje ct to false negat suad and false posit suad resul ts. It is most relia ble when a satis facto ry sampl e, regul emmanuel obtai robb, is submi tted with relev ant clini aman findi ngs and histo ry, and when the Pap resul t is evalu ated along with histo jd and curre nt clini aman infor matio n. Not Available [address] [place], [address], 12/23/2023 18:37:24 01/06/20 24 01/12/2024 TISSU E PATHO LOGY clinical information Abnor mal uteri ne bleed ing Not Available [address] [address] [place], [address], 01/12/2024 16:09:00 01/06/20 24 01/12/2024 TISSU E PATHO LOGY pathologist Lucy fitzpatrick MD Board Certi fied in Anato ángel Patho logy and Clini aman Patho logy (elec troni c signa ture) Not Available [address] [address] [place], [address], 01/12/2024 16:09:00 01/06/20 24 01/12/2024 TISSU E PATHO LOGY A source Endom etriu m, biops y Not Available [address] [place], [address], 01/12/2024 16:09:00 01/06/20 24 01/12/2024 TISSU E PATHO LOGY A gross description Speci men is recei sariah in 10% neutr al buffe red forma sam, label ed with multi ple patie nt ident ifier s and consi sts of multi ple fragm ents of soft tissu e aggre gatin g to 2.8 x 2.4 x 0.5 cm, irreg ular in shape and beyer-b rown in color . The speci men is entir dominik submi tted in one casse tte. The speci men site is taken from the conta iner. Gross exam( s) perfo rmed at: [facility] [place] [address] [place] [address] [place], [place] [address] Labor atory Direc tor: DAVY Khan MD Not Available [facility] [address] [address] [place], [address], 01/12/2024 16:09:00 01/06/20 24 01/12/2024 TISSU E PATHO LOGY A diagnosis Mildl y disor dered proli ferat suad endom etriu m, admix ed with blood . Not Available [facility] [address] [address] [place], [address], 01/12/2024 16:09:00 01/06/20 24 01/12/2024 TISSU E PATHO LOGY A comment No evide nce of hyper plasi a or malig sj in the speci men submi tted. Clini aman corre latio n/fol low-u p is recom kim d. Not Available [facility] [address] [place], [address], 01/12/2024 16:09:00 01/06/20 24 01/06/2024 pregn kemar test, urine HCG negati ve Not Available [facility] [address] [place], [address], 01/06/2024 16:06:16 09/06/19 25 09/07/2024 FSH FSH 4.5 mIU/m L Refer ence Range s are for femal es aged 18 years - Adult Cristal l Menst ruati ng Femal e: Folli cular phase : 2.5-1 0.2 mIU/m L Mid-C ycle Peak: 3.4-3 3.4 mIU/m L Lutea l phase : 1.5-9 .1 mIU/m L Pregn ant: <0.3 mIU/m L Post- menop ausal : 23.0- 116.6 mIU/m L Not Available [facility] [address] [address] [place], [address], 09/07/2024 12:35:31 01/06/20 24 01/06/2024 US, trans vagin al No observ ation record ed. [facility] [address], [place], [address], 01/10/2024 22:33:22 Result Notes None recorded. Procedures Surgical History Date Name Laterality Status Provider Name and Address Organization Details Recorded Time 4 Suture/Staple removal cancelled Brooke Shannon [employer] 05/31/2024 12:01:19 4 Suture/Staple removal cancelled Aidee Cheng [facility] [employer] IV 04/28/2024 10:39:23 4 Endometrial Biopsy completed MACK GRAHAM, DO [address] [facility], [place], [address], [facility] [employer] IV 01/10/2024 20:26:59 4 Date of Last Pap Smear completed Latisha Shannon [employer] 01/06/2024 15:25:56 Removal of Ovaries completed Missy Forrester [employer] IV 12/20/2023 12:15:14 Imaging Results Imaging Date Name Status LastModified by Organization Details LastModified Time 01/06/2024 US, transvaginal completed Patricia [address], [place], [address], 01/10/2024 22:33:22 Procedure Notes None recorded. Medical Equipment None Reported. Allergies Allergen ID Allergen Name Allergen Category Reaction Reaction Severity Criticality Documentation Date Start Date Code Code System Note Provider Name and Address Organization Details Recorded Time 988588 Substance with sulfonami de structure and antibacte rial mechanism of action (substanc e) medicatio n Not available Not available Not available 12/20/2023 09354 8003 SNOMED Not Available Not Available Not Available Medications Name Sig Start Date Stop Date Status Note LastModified by Organization Details LastModified Time venlafaxine ER 75 mg capsule,ext ended release 24 hr TAKE 1 CAPSULE BY MOUTH EVERY DAY active Not Available Not Available No t Available doxycycline hyclate 100 mg capsule 09/06 completed Not Available Not Available Not Available clindamycin HCl 300 mg capsule TAKE 1 CAPSULE BY MOUTH EVERY 8 HOURS 05/04 completed Not Available Not Available Not Available trazodone 50 mg tablet TAKE 1 TABLET BY MOUTH AT BEDTIME NEEDED active Not Available Not Available No t Available azithromyci n 250 mg tablet TAKE 2 TABLETS BY MOUTH TODAY, THEN TAKE 1 TABLET DAILY FOR 4 DAYS DIRECTED 12/19 completed Not Available Not Available Not Available fluconazole 150 mg tablet 05/04 completed Not Available Not Available Not Available ondansetron HCl 8 mg tablet 8 MG ORALLY EVERY 12 HOURS NEEDED FOR NAUSEA AND VOMITING 09/06 completed Not Available Not Available Not Available lisinopril 20 mg tablet TAKE 1 TABLET BY MOUTH EVERY DAY -MONITOR BLOOD PRESSURE 2X DAILY BEFORE COFFEE, STIMULANT , BP MED 05/04 completed Not Available Not Available Not Available clonazepam 1 mg tablet TAKE 1 TABLET TWICE A DAY BY ORAL ROUTE NEEDED. active Not Available Not Available No t Available metformin 850 mg tablet TAKE 1 TABLET BY MOUTH EVERY DAY WITH A MEAL active Not Available Not Available No t Available venlafaxine ER 150 mg capsule,ext ended release 24 hr TAKE 1 CAPSULE BY MOUTH EVERY DAY active Not Available Not Available No t Available hydroxyzine pamoate 50 mg capsule 12/19 completed Not Available Not Available Not Available doxepin 10 mg capsule 12/19 completed Not Available Not Available Not Available valacyclovi r 500 mg tablet TAKE 2 TABS ORALLY DAILY FOR 90 DAYS PLEASE GET LABS COMPLETED TO MONITOR KIDNEY FUNCTION active Not Available Not Available No t Available ciprofloxac in 500 mg tablet 12/19 completed Not Available Not Available Not Available tramadol 50 mg tablet TAKE 1 TABLET EVERY 6 HOURS NEEDED active Not Available Not Available No t Available ketorolac 10 mg tablet TAKE 1 TABLET BY MOUTH EVERY 6 HOURS NEEDED FOR 5 DAYS 09/06 completed Not Available Not Available Not Available meloxicam 7.5 mg tablet PLEASE SEE ATTACHED FOR DETAILED DIRECTION S active Not Available Not Available No t Available oxycodone-a cetaminophe n 5 mg-325 mg tablet 05/04 completed Not Available Not Available Not Available amoxicillin 875 mg tablet 12/19 completed Not Available Not Available Not Available ciprofloxac in 0.3 % eye drops 05/04 completed Not Available Not Available Not Available lisinopril 10 mg tablet 10 MG ORALLY DAILY MONITOR BLOOD PRESSURES TWICE DAILY BEFORE COFFEE/ST IMULANTS/ BEFORE BP MED. 12/19 completed Not Available Not Available Not Available prednisone 50 mg tablet TAKE 1 TABLET BY MOUTH EVERY DAY 12/19 completed Not Available Not Available Not Available albuterol sulfate HFA 90 mcg/actuati on aerosol inhaler INHALE 2 PUFFS FOUR TIMES DAILY active Not Available Not Available No t Available lisinopril 40 mg tablet TAKE 1 TABLET BY MOUTH EVERY DAY -MONITOR BLOOD PRESSURE 2X DAILY BEFORE COFFEE, STIMULANT , BP MED active Not Available Not Available No t Available amoxicillin 875 mg-potassiu m clavulanate 125 mg tablet TAKE 1 TABLET BY MOUTH EVERY 12 HOURS FOR 7 DAYS 09/06 completed Not Available Not Available Not Available amoxicillin 500 mg-potassiu m clavulanate 125 mg tablet TAKE 1 TABLET BY MOUTH THREE TIMES A DAY 05/04 completed Not Available Not Available Not Available oxycodone 5 mg tablet TAKE 1 TABLET (5 MG TOTAL) BY MOUTH EVERY 4 (FOUR) HOURS NEEDED FOR PAIN 05/04 completed Not Available Not Available Not Available nitrofurant oin monohydrate /macrocryst als 100 mg capsule 100 MG ORALLY EVERY 12 HOURS FOR 5 DAYS MUST ADMINISTE R WITH A MEAL/FOOD 09/06 completed Not Available Not Available Not Available hydrochloro thiazide 12.5 mg tablet TAKE 1 TABLET BY MOUTH DAILY FOR 3 DAYS, THEN INCREASE TO 2 TABLETS DAILY active Not Available Not Available No t Available Symbicort 160 mcg-4.5 mcg/actuati on HFA aerosol inhaler INHALE 1 PUFF EVERY DAY active Not Available Not Available No t Available cholecalcif sheryl (vitamin D3) 1,250 mcg (50,000 unit) capsule TAKE 1 CAPSULE EVERY WEEK BY ORAL ROUTE. active Not Available Not Available No t Available oxycodone 10 mg tablet 05/04 completed Not Available Not Available Not Available Vitals Date Recorded Body height Body mass index (BMI) Body weight Body temperature Systolic blood pressure Diastolic blood pressure Provider Name and Address Organization Details Last Updated DateTime 4 175.26 cm 38.5 kg/m2 186601. 89 g 97.7 [degF] 128 mm[Hg] 76 mm[Hg] Missy Usama [email or web address] IV 4 12:14:33 Date Recorded Body height Body mass index (BMI) Body weight Systolic blood pressure Diastolic blood pressure Provider Name and Address Organization Details Last Updated DateTime 01/06/2024 175.26 cm 37.5 kg/m2 342967.1 8 g 130 mm[Hg] 78 mm[Hg] Latisha Shannon [employer] IV 4 15:25:19 Date Recorded Body height Body mass index (BMI) Body weight Body temperature Systolic blood pressure Diastolic blood pressure Provider Name and Address Organization Details Last Updated DateTime 4 175.26 cm 37.9 kg/m2 608765. 8 g 97.3 [degF] 122 mm[Hg] 86 mm[Hg] Leydi Magalie [email or web address] IV 4 10:08:20 Date Recorded Body height Provider Name an d Address Organization Details Last Updated DateTime 05/04/2024 175.26 cm Leydi Magalie [employer] IV 05/04/2024 09:51:57 Date Recorded Body mass index (BMI) Body weight Body temperature Systolic blood pressure Diastolic blood pressure Provider Name and Address Organization Details Last Updated DateTime 05/04/2024 39.6 kg/m2 990139. 76 g 97.3 [degF] 120 mm[Hg] 78 mm[Hg] Estefania Vega [employer] IV 4 09:58:45 Date Recorded Body height Body mass index (BMI) Body weight Systolic blood pressure Diastolic blood pressure Provider Name and Address Organization Details Last Updated DateTime 09/06/2024 175.26 cm 39.6 kg/m2 065253.1 9 g 122 mm[Hg] 80 mm[Hg] Latisha Shannon [facility] [employer] IV 12:27:26 Social History Question Answer Notes LastModified by Organizat ion Details LastModified Time Tobacco Smoking Status Current Every Day Smoker Missy Forrester arm[employer], [employer] 12/20/2023 12:15:14 What Is Your Level Of Alcohol Consumption? Occasional Information not available 12/20/2023 How Many Years Have You Consumed Alcohol? 20 Information not available 12/20/2023 Are You Blind Or Do You Have Difficulty Seeing? No Information not available 12/20/2023 Are You Currently Employed? Yes Information not available 12/20/2023 Are You Deaf Or Do You Have Serious Difficulty Hearing? No Information not available 12/20/2023 What Type Of Diet Are You Following? DIABETIC Information not available 12/20/2023 Which Illicit Or Recreational Drugs Have You Used? Marijuana Information not available 12/20/2023 How Many Children Do You Have? 0 Information not available 12/20/2023 Are There Any Occupational Health Risks Where You Work? No Information not available 12/20/2023 What Is Your Relationship Status? Single Information not available 12/20/2023 Are You Sexually Active? Yes Information not available 12/20/2023 At What Age Did You Start Smoking Tobacco? 16 Information not available 12/20/2023 How Much Tobacco Do You Smoke? 0.5 PPD Information not available 12/20/2023 Do You Use Any Illicit Or Recreational Drugs? Yes Information not available 12/20/2023 How Many Years Have You Smoked Tobacco? 32 Information not available 12/20/2023 Sex: Unknown Functional Status Question Answer Note LastModified by Organizat ion Details LastModified Time What is your exercise level? Occasional Information not available 12/20/2023 Mental Status None recorded. Family History Relationship Description Onset Age of this Age Resolved Age Notes LastModified by Organization Details LastModified Time Mother Hypercholest erolemia Not available 2023 12:15:14 Mother Hypertensive disorder Not available 2023 12:15:14 Mother Diabetes mellitus Not available 2023 12:15:14 Brother Hypercholest erolemia Not available 2023 12:15:14 Brother Hypertensive disorder Not available 2023 12:15:14 Brother Diabetes mellitus Not available 2023 12:15:14 Father Malignant neoplastic disease Not available 2023 12:15:14 Medical History Condition Response High Blood Pressure Y Depression Y Seasonal allergies Y History of Abnormal Pap Y Diabetes Mellitus (non-insulin dependent ) Y Asthma Y Fibroids Y Bipolar Disorder Y Gynecological History Statement/Question Response Flow Heavy Date of last HPV 12/20/2023 Frequency of Cycle (Q days) 28 Date of LMP 02/23/2024 HPV Vaccine N Date of Last Pap Smear 12/20/2023 Duration of Flow (days) 5 Current Control Method Hysterectom y Age at Menarche 11 Obstetrics History GPAL:G 0 P 0 0 0 0 Past Encounters Encounter ID Performer Location Encounter Start Date Encounter Closed Date Diagnosis/Indication Diagnosis SNOMED-CT Code Diagnosis ICD10 Code Diagnosis Note [id number] MACK GRAHAM, [facility] [address] [place] [address] 12/20/2023 12:07:51 12/20/2023 14:50:50 Abnormal uterine bleeding [id number] 9100 N93.9 RTO for US 5 days of heavy bleeding, needing to change pad q60fhyoxrs le in rehab was hospitaliz ed in [place], [place] for heavy bleedingpr eviously tried COCswas informed had fibroids and endometrio sish/o unilateral salpingo-o ophorectom y via ex-lap at 16 yo for what pt believes was a dermoid cyst Screening for malignant neoplasm of cervix 572201783 Z12.4 Gynecologi c examination 64441226 Z01.419 38 y.o. here for annual exam. - Pap / HPV cotesting completed today- Contracept suad counseling : Discussed options including OCPs, NuvaRing, Nexplanon, hormonal and copper IUDs. Discussed risks, benefits, and side effects of each option, including risk of VTE with hormonal contracept ion and uterine perforatio n with IUD.- Routine labs done with PCP- Mammo at age 39, no increased risk- Depression screen NEG- BMI counseling , diet and exercise reviewed- RTO for annual or PRN Surveillan ce of contraception 035202614 Z30.40 Depression screening 171 277680 Z13.31 History of substance abuse 046652920 F19.21 h/o crack cocaine usejust out of rehab for 2 monthshas been tested for HIV and hepatitis; negative [id number] MACK GRAHAM, [facility] [address] [place] [address] 01/06/2024 13:55:43 01/11/2024 15:34:15 Abnormal uterine bleeding [id number] 9100 N93.9 38 y.o. with AUB-L. - US: 12 cm fibroid, 1 cm endometria l lining, 3 fibroids measuring 3-4 cm each. left ovary wnl. right ovary not seen Pt medically complicate d by HTN, pre-diabet es, tobacco user, and h/o ex-lap for ovarian mass- Reviewed medical treatments for HMB including POPs, hormonal IUD, Lysteda, and GNRH agonists. Discussed risks, efficacy, benefits, and side effects of each option, including ovarian/co michael cancer benefits, small increased breast cancer risk and risk of VTE with hormonal contracept ion/uterin e perforatio n, expulsion, infection with IUD.- Reviewed surgical treatments including endometria l ablation with hsc myomectomy if fibroid impinging on cavity with or without IUD placement, myomectomy , or definitive surgery with hysterecto my, likely RATLHBS due to h/o ex-lap. Reviewed risks of surgery to include bleeding, need for transfusio n, infection, damage to surroundin g abdominal structures (bowel, bladder, tubes, ovaries, nerves, blood vessels, others), potential need for further procedures , and anesthetic or medical complicati ons. Handouts from [facility] and up to date given. -Pt has previously used oral contracept ion in the past and declines all other hormonal medication . She would like to proceed with hysterecto my. Plan for RATLHBS w/ cysto. Discussed increased risk of converting to MADYSON or mini-lap due to size of uterus.-EM BX completed today.-Hys terectomy consent signed Intramural leiomyoma of uterus 67824008 D25.1 [id number] MACK GRAHAM DO [facility] [address] [place] [address] 03/28/2024 09:56:10 03/28/2024 10:29:42 Preprocedural examination done [id number] 12636 Z01.818 38 yo w/ AUB-L here for pre-op evaluation prior to hysterecto my -Pap w/ HPV: nilm, -HPV-EMB: benign-Dis cussed pre-op and post-op expectatio ns-Plan for OnQ pain pump-Does not require pre-op medical clearance- Plan for RATLHBS w/ cysto @ [facility] Uterine leiomyoma 167882 05 D25.9 Additional diagnosis detail: Uterine leiomyoma, unspecifie d location Abnormal u terine bleeding [id number] 9100 N93.9 38 y.o. with AUB-L. - US: 12 cm fibroid, 1 cm endometria l lining, 3 fibroids measuring 3-4 cm each. left ovary wnl. right ovary not seen Pt medically complicate d by HTN, pre-diabet es, tobacco user, and h/o ex-lap for ovarian mass- Reviewed medical treatments for HMB including POPs, hormonal IUD, Lysteda, and GNRH agonists. Discussed risks, efficacy, benefits, and side effects of each option, including ovarian/co michael cancer benefits, small increased breast cancer risk and risk of VTE with hormonal contracept ion/uterin e perforatio n, expulsion, infection with IUD.- Reviewed surgical treatments including endometria l ablation with [facility] [place] if fibroid impinging on cavity with or without IUD placement, myomectomy , or definitive surgery with hysterecto my, likely RATLHBS due to h/o ex-lap. Reviewed risks of surgery to include bleeding, need for transfusio n, infection, damage to surroundin g abdominal structures (bowel, bladder, tubes, ovaries, nerves, blood vessels, others), potential need for further procedures , and anesthetic or medical complicati ons. Handouts from [facility] and up to date given. -Pt has previously used oral contracept ion in the past and declines all other hormonal medication . She would like to proceed with hysterecto my. Plan for RATLHBS w/ cysto. Discussed increased risk of converting to MADYSON or mini-lap due to size of uterus. [id number] MACK GRAHAM DO [facility] [address] [place] [address] 05/04/2024 09:50:12 05/04/2024 10:58:44 Postoperative visit [id number] Z09 38 yo s/p TAHBS here for 2w POV Had surgical site infection, seen at [place] [facility] and given abx. Discussed postoperat suad pathology with patient. Reviewed Surgical findings. Patient instructed to maintain strict pelvic rest and no heavy lifting greater than 20 lbs. She was instructed to return for a second postoperat suad visit in 4 weeks to evaluated the vaginal cuff. All of her questions were answered. [id number] MACK GRAHAM DO [facility] [address] [place] [address] 09/06/2024 12:21:04 09/06/2024 13:41:11 Menopausal symptom [id number] N95.1 History of hysterectomy [id number] Z90.710 vaginal cuff well healed Health Concerns Section Related Observation LastModified by Organization Detai ls LastModified Time None Recorded Concern Status LastModified by Organization Details LastModified Time None Recorded Advance Directives Directive None Recorded Payers Encounter Date Sequence Insurance Name Policy Number Policy Jackson Covered Member ID Jackson Member ID Guarantor Name 12/20/2023 1 [place] Kristi Chicas [id number] Kristiher Chicas 01/06/2024 1 [place] Kristi Carusoson [id number] Kristiher Chicas 03/28/2024 1 [facility] ON OR AFTER 02/27/21 (MEDICAID REPLACEMENT - HMO) Kristi Chicas [id number] Kristiher Chicas 05/04/2024 1 [facility] - DOS ON OR AFTER 21 (MEDICAID REPLACEMENT - HMO) Kristi Chicas [id number] Kristi Chicas 09/06/2024 1 [facility] - DOS ON OR AFTER 21 (MEDICAID REPLACEMENT - HMO) Kristi Chicas [id number] Kristi Chicas Notes Date Note Type Note Provider Name and Address Organization Details Recorded Time 12/20/2023 text/html Kristi is here today to discuss surgery.She would like more information of having a hysterectomyHer periods are very irregular and painfulHer flow is very heavyShe complains of pain in her abdomen and lower back MACK GRAHAM DO [address] [place] [address], [phone], [email or web address] IV 12/20/2023 14:20:43 01/06/2024 text/html Kristi 38 y/o h ere for f/u on abnormal vaginal bleeding, LMP 12/20/2023, periods are heavy and irregular, Last pap 12/20/2023, History of fibroids / endometriosis . U/S done today MACK GRAHAM DO [address] [place] [address], [phone], [email or web address] IV 01/10/2024 20:27:52 03/28/2024 text/html Pre-Op OBGYN HPIReported bypatient.Surgery to be Performed:UZMA Diagnosis:Uterine Fibroids Location:[facility] on 04/18/24 Anesthesia hx:Anesthesia Proposed: general Kristi presents today for pre op visit MACK GRAHAM DO [address] [place] [address], [phone], [email or web address] IV 03/28/2024 10:25:52 05/04/2024 text/html Post-OpReported bypatient.Onset/Timin g:date of surgery: (04/18/2024) Quality:procedure: (LAPAROSCOPIC CONVERT TO TOTAL ABDOMINAL HYSTERECTOMY,BILATERA L SALPINGECTOMY) Associated Symptoms:no fatigue; normal appetite; normal bowel function; no constipation; no nausea; no emesis; no fever; no bleeding; no lower extremity edema/pain; no dysuria/urinary symptoms;incision not healing well;pain not improving;pain MACK GRAHAM DO [facility] [place], [address], [email or web address] IV 05/04/2024 10:56:16 09/06/2024 text/html Kristi 39 y/o h ere with c/o hormone issues, she had Hysterectomy 04/18/2024, c/o acne, mood swings, hot flashes , MACK GRAHAM, DO [address] [facility], [place], [address], [email or web address] IV 09/06/2024 12:50:18 OBGyn Episode No OBEpisode recorded.
--- OUTSIDE RECORDS SUMMARY | 2024-11-27 09:33 | XMS_ITS | Referral Summary ---
Author Organization [facility] Address [address] [place] [address] Care Team Providers Care Table Runner Name Role Phone Treva Martell NP Primary Care Provider [phone] Allergies Active Allergy Reactions Criticality Noted Date [...] drink = 0.6 oz pur e alcohol) [facility] Utilities Answer Date Recorded In the past 12 months has [employer], [employer], or water [employer] threatened to shut off services in your [...] week 04/19/2024 How often do you attend [facility] or lutheran services? Never 04/19/2024 Do you belong to any clubs o r organizations such as mosque groups, unions, fraternal or athletic groups, or [...] any time in the past 12 m [facility], were you homeless or living in a senior care (including now)? No 04/19/2024 Personal Safety Answer Date Recorded Have you ever been in or are you currently in a harmful physical or emotional relationship or is someone making you feel afraid or unsafe? 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 Department [place] [address] from Last 3 Months or Most Recently Relevant to Health Maintenance Insurance [facility] MEDICAID [facility] Advance Directives For more information, please contact: [phone] * Full Code (Latest Code Status on File) Date Activated Date Inactivated Comments 04/18/2024 3:12 PM 04/20/2024 2:43 PM Care Teams Table Runner Relationship Specialty Start Date End Date Treva Martell NP [address] [place] [address] PCP - General Family Medicine 04/07/24
== END 2024-11-27 08:58 | disposition home or self-care (01) ==
LOC: ANHCARD 08:58
PROVIDERS: PCP Nurse Practitioner Family; Visit Provider Internal Medicine Cardiovascular Disease
DX: R07.9 Chest pain, unspecified (principal); R06.09 Other forms of dyspnea
CPT/HCPCS: 93017; 93306

== ENCOUNTER 2025-01-07 15:38 | Emergency (ER) | payer OTHER, SELFPAY ==
[2025-01-07 15:39] VITALS: BP 154/92; PULSE 83; RESP 18; TEMP 36.6; O2SAT 99
--- OUTSIDE RECORDS SUMMARY | 2025-01-07 15:40 | XMS_ITS | Referral Summary ---
Author Organization [facility] Address [address] [place] [address] Care Team Providers Care Sales Operations Consultant Name Role Phone Treva Martell NP Primary Care Provider [phone] Allergies Active Allergy Reactions Criticality Noted Date [...] drink = 0.6 oz pur e alcohol) [facility] Utilities Answer Date Recorded In the past 12 months has [employer], [employer], or water [employer] threatened to shut off services in your [...] week 04/19/2024 How often do you attend [facility] or spiritism services? Never 04/19/2024 Do you belong to any clubs o r organizations such as gnosticism groups, unions, fraternal or athletic groups, or [...] any time in the past 12 m [facility], were you homeless or living in a m[facility] (including now)? No 04/19/2024 Personal Safety Answer Date Recorded Have you ever been in or are you currently in a harmful physical or emotional relationship or is someone making you feel afraid or unsafe? 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 Gender Identity Not on file Sexual Orientation [...] on file Medical Devices Implanted Type Area Construction Trench Digger Device Identifier Shelf Expiration Date Model / [...] - 04/18/2024 2:58 PM CD[facility] Patient is employed by/enrolled at:->[facility] [facility] Gus Regan MD LAB MICROBIOLOGY - GENERAL OR DERABLES Edited Result - Final BE[facility] [address] [facility] Department [place] [address] from Last 3 Months or Most Recently Relevant to Health Maintenance Insurance [facility] MEDICAID [facility] Advance Directives For more information, please contact: [phone] * Full Code (Latest Code Status on File) Date Activated Date Inactivated Comments 04/18/2024 3:12 PM 04/20/2024 2:43 PM Care Teams Sales Operations Consultant Relationship Specialty Start Date End Date Treva Martell NP [address] [place] [address] PCP - General Family Medicine 04/07/24
--- OUTSIDE RECORDS SUMMARY | 2025-01-07 15:40 | XMS_ITS | Data Portability ---
Author Organization [employer] , [facility] Address [address] [place] [address] Assessment No assessment recorded. Plan of Treatment Reminders Order Date Submit Date Provider Last Modified By Organization Details Last Modified Time Details Appointments None recorded. Lab estradiol, serum 2024 025 [facility], [address] [place], [address], 5 11:57:10 FSH (follicle-s timulating hormone), serum 2024 025 [facility] El[facility], [address] [place] [address], [address], 5 12:35:31 vitamin D, 25-hydroxy, total, serum 2024 025 [facility], [address] [place], [address], 5 11:57:11 biopsy, tissue 2023 024 [facility], [address] [place], [address], 4 16:09:00 test, urine 2023 024 kdominick 1 [facility], [address] [place], [address], 4 20:15:19 HPV E6+E7 mRNA, qualitative PCR, cervix 2023 024 [facility] Eladio, [address] [place], [address], 09:22:35 pap, LB 2023 024 HARRIET [facility], [address] [facility], [place], [address], 18:37:24 Referral None recorded. Procedures None recorded. Surgeries None recorded. Imaging US, transvagina l 2023 024 kbritsch Not available 17:53:49 Medication Orders ketorolac 10 mg tablet 2023 025 [id number], [address] [place], [address], 12:27:48 Patient TargetsNo targets recorded. Patient Instructions Encounter Date Encounter Id Patient Instructions Last Modified By Organization Details Last Modified Time 12/20/2023 [id number] body mass index: care instructions Not available [...] is recom kim d (orde r code 26411 ). Bita wood note: patie nts being [...] s. [facility] order code 46806 -Estr adiol , Ultra sensi tive LC/MS /MS demon strat es negli gible cross react ivity with fulve stran t. Not Available [employer] [address] [place], [address], 09/07/2024 11:57:10 09/07/19 25 09/07/2024 VITAM IN [...] /MS is recom kim d: order code 19806 (kerry ents >2yrs ). See Note 1 NO COLLE CTION DATE RECEI SARIAH. WE HAVE USED THE DATE THE SPECI MEN WAS RECEI SARIAH BY THIS LABOR ATORY THE COLLE CTION DATE. IF THIS IS INCOR RECT, BITA E CONTA CT CLIEN T SERVI CARLITA. PHONE NUMBE R: [phone] Note 1 For addit ional infor bita monteiro refer to http: //[facility] yanick gomezQue stDia gnost ics.c om/fa q/FAQ 199 (This link is being provi ded for infor kourtney han/ educa jairo cottrell purpo ses only. ) Not Available [employer] [address] [address] [place], [address], 09/07/2024 11:57:11 12/20/1912/22/2023 HPV HIGH RISK HPV [...] l cervi aman cytol ogy. Not Available [address], [address], 12/23/2023 09:22:35 12/20/19 24 12/23/2023 THINP REP TIS PAP clinical information: normal None given Not Available [facility] [address] [address] [place], [address], 12/23/2023 18:37:24 12/20/19 24 12/23/2023 THINP REP TIS PAP LMP: normal NONE GIVEN Not Available [employer] [address] [address] [place], [address], 12/23/2023 18:37:24 12/20/19 24 12/23/2023 THINP REP TIS PAP prev. Pap: normal NONE GIVEN Not Available [employer] [address] [address] [place], [address], 12/23/2023 18:37:24 12/20/19 24 12/23/2023 THINP REP TIS PAP prev. BX: normal NONE GIVEN Not Available [address] [address] [place], [address], 12/23/2023 18:37:24 12/20/19 24 12/23/2023 THINP REP TIS PAP source: normal Cervi x Not Available [address] [address] [place], [address], 12/23/2023 18:37:24 12/20/19 24 12/23/2023 THINP REP TIS PAP statement of adequacy: normal Satis facto ry for evalu ation . Endoc ervic al/tr ansfo rmati on zone compo nent prese nt. Age and/o r menst rual statu s not provi ded Not Available [address] [address] [place], [address], 12/23/2023 18:37:24 12/20/19 24 12/23/2023 THINP REP TIS PAP interpretati on/result: normal Cytol ogy Resul ts: Negat suad for intra epith elial lesio n or aria gustafson . Not Available [address] [address] [place], [address], 12/23/2023 18:37:24 12/20/19 24 12/23/2023 THINP REP TIS PAP comment: normal This Pap test has been evalu ated with compu ter efrnando alex techn ology . Not Available [address] [address] [place], [address], 12/23/2023 18:37:24 12/20/19 24 12/23/2023 THINP REP TIS PAP cytotechnolo gist: normal BKA, CT( CP) CT scree sheila locat ion: [place] [address] [address] [place] [address] Not Available [address] [address] [place], [address], 12/23/2023 18:37:24 12/20/19 24 12/23/2023 THINP REP [...] clini aman infor matio n. Not Available [address] [place], [address], 12/23/2023 18:37:24 01/06/20 24 01/12/2024 TISSU E PATHO LOGY clinical information Abnor mal uteri ne bleed ing Not Available [address] [address] [place], [address], 01/12/2024 16:09:00 01/06/20 24 01/12/2024 TISSU E PATHO LOGY pathologist Lucy fitzpatrick MD Board Certi fied in Anato ángel Patho logy and Clini aman Patho logy (elec troni c signa ture) Not Available [address] [address] [place], [address], 01/12/2024 16:09:00 01/06/20 24 01/12/2024 TISSU E PATHO LOGY A source Endom etriu m, biops y Not Available [address] [place], [address], 01/12/2024 16:09:00 01/06/20 24 01/12/2024 TISSU E [...] [facility] [place] [address] [place] [address] [place], [place] [address] Labor atory Direc tor: DAVY Khan MD Not Available [facility] [address] [address] [place], [address], 01/12/2024 16:09:00 01/06/20 24 01/12/2024 TISSU E PATHO LOGY A diagnosis Mildl y disor dered proli ferat suad endom etriu m, admix ed with blood . Not Available [facility] [address] [address] [place], [address], 01/12/2024 16:09:00 01/06/20 24 01/12/2024 TISSU E PATHO LOGY A comment No evide nce of hyper plasi a or malig sj in the speci men submi tted. Clini aman corre latio n/fol low-u p is recom kim d. Not Available [facility] [address] [place], [address], 01/12/2024 16:09:00 01/06/20 24 01/06/2024 pregn kemar test, urine HCG negati ve Not Available [facility] [address] [place], [address], 01/06/2024 16:06:16 09/06/19 25 09/07/2024 FSH FSH [...] : 23.0- 116.6 mIU/m L Not Available [place] Eladio [address] [place], [address], 09/07/2024 12:35:31 01/06/20 24 01/06/2024 US, trans vagin al No observ ation record ed. kdominicYogome Patricia [address], [place], [address], 01/10/2024 22:33:22 Result Notes None recorded. Procedures Surgical History Date Name Laterality Status Provider Name and Address Organization Details Recorded Time 4 Suture/Staple removal cancelled Brooke Shannon AK [employer] IV 05/31/2024 12:01:19 4 Suture/Staple removal cancelled Aidee Cheng [facility] [employer] IV 04/28/2024 10:39:23 4 Endometrial Biopsy completed MACK GRAHAM, DO [address] [facility], [place], [address], [facility] [employer] [facility] IV 01/10/2024 20:26:59 4 Date of Last Pap Smear completed Latisha Shannon AK [employer] IV 01/06/2024 15:25:56 Removal of Ovaries completed Missy Forrester AK [employer] IV 12/20/2023 12:15:14 Imaging Results Imaging Date Name Status LastModified by Organization Details LastModified Time 01/06/2024 US, transvaginal completed Patricia [address], [place], [address], 01/10/2024 22:33:22 Procedure Notes None recorded. Medical Equipment None Reported. Allergies Allergen ID Allergen Name Allergen Category Reaction Reaction Severity Criticality Documentation Date Start Date Code Code System Note Provider Name and Address Organization Details Recorded Time 990014 Substance with sulfonami de structure and antibacte rial mechanism of action (substanc e) medicatio n Not available Not available Not available 12/20/2023 99613 8003 SNOMED Missy roberts, [facility] 4 12:15:13 Medications Name Sig Start Date Stop Date [...] Updated DateTime 4 175.26 cm 38.5 kg/m2 677550. 89 g 97.7 [degF] 128 mm[Hg] 76 mm[Hg] Missy Forrester [employer] IV 4 12:14:33 Date Recorded Body height Body mass index (BMI) Body weight Systolic blood pressure Diastolic blood pressure Provider Name and Address Organization Details Last Updated DateTime 01/06/2024 175.26 cm 37.5 kg/m2 586037.1 8 g 130 mm[Hg] 78 mm[Hg] Latisha Shannon AK [employer] IV 4 15:25:19 Date Recorded Body height Body mass index (BMI) Body weight Body temperature Systolic blood pressure Diastolic blood pressure Provider Name and Address Organization Details Last Updated DateTime 4 175.26 cm 37.9 kg/m2 102611. 8 g 97.3 [degF] 122 mm[Hg] 86 mm[Hg] Leydi Mclainer [employer] IV 4 10:08:20 Date Recorded Body height Provider Name an d Address Organization Details Last Updated DateTime 05/04/2024 175.26 cm Leydi Mclainer [employer] IV 05/04/2024 09:51:57 Date Recorded Body mass index (BMI) Body weight Body temperature Systolic blood pressure Diastolic blood pressure Provider Name and Address Organization Details Last Updated DateTime 05/04/2024 39.6 kg/m2 235885. 76 g 97.3 [degF] 120 mm[Hg] 78 mm[Hg] Estefania Gary AK [employer] IV 4 09:58:45 Date Recorded Body height Body mass index (BMI) Body weight Systolic blood pressure Diastolic blood pressure Provider Name and Address Organization Details Last Updated DateTime 09/06/2024 175.26 cm 39.6 kg/m2 550876.1 9 g 122 mm[Hg] 80 mm[Hg] Latisha Shannon [employer] IV 12:27:26 Social History Question Answer Notes LastModified by Organizat ion Details LastModified Time Tobacco Smoking Status Current Every Day Smoker Missy roberts, [employer] IV 12/20/2023 12:15:14 What Is Your Level [...] Response High Blood Pressure Y Depression Y Diabetes Mellitus (non-insulin dependent ) Y Fibroids Y Asthma Y Seasonal allergies Y Bipolar Disorder Y History of Abnormal Pap Y Gynecological History Statement/Question Response Flow Heavy [...] SNOMED-CT Code Diagnosis ICD10 Code Diagnosis Note [id number] MACK GRAHAM DO [facility] [address] [place] [address] 12/20/2023 12:07:51 12/20/2023 14:50:50 Abnormal uterine bleeding 3976005868 9100 N93.9 RTO for US 5 days of heavy bleeding, needing to change pad r69rapaajo le in rehab was hospitaliz ed in [place] for heavy bleedingpr eviously tried COCswas informed had fibroids and endometrio sish/o unilateral salpingo-o ophorectom y via ex-lap at 16 yo for what pt believes was a dermoid cyst Screening for malignant neoplasm of cervix 276732544 Z12.4 Gynecologi c examination 11467946 Z01.419 38 y.o. here for annual exam. [...] annual or PRN Surveillan ce of contraception 611754304 Z30.40 Depression screening 171 662541 Z13.31 History of substance abuse 861775871 F19.21 h/o crack cocaine usejust out of rehab for 2 monthshas been tested for HIV and hepatitis; negative [id number] MACK GRAHAM, [facility] h [address] [place] [address] 01/06/2024 13:55:43 01/11/2024 15:34:15 Abnormal uterine bleeding 7093025883 9100 N93.9 38 y.o. with AUB-L. - [...] terectomy consent signed Intramural leiomyoma of uterus 80197985 D25.1 [id number] MACK GRAHAM, H_[facility] h [address] [place] [address] 03/28/2024 09:56:10 03/28/2024 10:29:42 Preprocedural examination done 5639127381 03433 Z01.818 38 yo w/ AUB-L here for pre-op evaluation prior to hysterecto my -Pap w/ HPV: nilm, -HPV-EMB: benign-Dis cussed pre-op and post-op expectatio ns-Plan for OnQ pain pump-Does not require pre-op medical clearance- Plan for RATLHBS w/ cysto @ [facility] Uterine leiomyoma 512309 05 D25.9 Additional diagnosis detail: Uterine leiomyoma, unspecifie d location Abnormal u terine bleeding [id number] 9100 N93.9 38 y.o. with AUB-L. - [...] or mini-lap due to size of uterus. [id number] MACK PURVISINICDO Carin [facility] [address] [place] [address] 05/04/2024 09:50:12 05/04/2024 10:58:44 Postoperative visit 228644462 Z09 38 yo s/p TAHBS here for 2w POV Had surgical site infection, seen at [place] [facility] and given abx. Discussed postoperat suad pathology with patient. Reviewed Surgical findings. Patient instructed to maintain strict pelvic rest and no heavy lifting greater than 20 lbs. She was instructed to return for a second postoperat suad visit in 4 weeks to evaluated the vaginal cuff. All of her questions were answered. [id number] MACK GRAHAM DO [facility] h [address] [place] [address] 09/06/2024 12:21:04 09/06/2024 13:41:11 Menopausal symptom 43947295 N95.1 History of hysterectomy 822398187 Z90.710 vaginal cuff well healed Health Concerns Section Related Observation LastModified by Organization Detai ls LastModified Time None Recorded Concern Status LastModified by Organization Details LastModified Time None Recorded Advance Directives Directive None Recorded Payers Insurance Date Sequence Insurance Name Policy Number Policy Jackson Covered Member ID Jackson Member ID Guarantor Name 05/04/2024 1 [place] Kristi Chicas [id number] Kristi Chicas 01/04/2025 1 [facility] - DOS ON OR AFTER 21 (MEDICAID REPLACEMENT - HMO) Kristi Chicas [id number] Kristi Chicas Notes Date Note Type Note Provider Name and Address Organization Details Recorded Time 12/20/2023 text/html Kristi is here today to discuss surgery.She would like more information of having a hysterectomyHer periods are very irregular and painfulHer flow is very heavyShe complains of pain in her abdomen and lower back MACK GRAHAM, [address] [facility], [place], [address], [employer] IV 12/20/2023 14:20:43 01/06/2024 text/html Kristi 38 y/o h ere for f/u on abnormal vaginal bleeding, LMP 12/20/2023, periods are heavy and irregular, Last pap 12/20/2023, History of fibroids / endometriosis . U/S done today MACK GRAHAM DO [address] [facility], [place], [address], [employer] IV 01/10/2024 20:27:52 03/28/2024 text/html Pre-Op OBGYN HPIReported bypatient.Surgery to be Performed:UZMA Diagnosis:Uterine Fibroids Location:[facility] on 04/18/24 Anesthesia hx:Anesthesia Proposed: general Kristi presents today for pre op visit MACK GRAHAM DO [address] [facility], [place], [address], [employer] IV 03/28/2024 10:25:52 05/04/2024 text/html Post-OpReported bypatient.Onset/Timin g:date of surgery: (04/18/2024) Quality:procedure: (LAPAROSCOPIC CONVERT TO TOTAL ABDOMINAL HYSTERECTOMY,BILATERA L SALPINGECTOMY) Associated Symptoms:no fatigue; normal appetite; normal bowel function; no constipation; no nausea; no emesis; no fever; no bleeding; no lower extremity edema/pain; no dysuria/urinary symptoms;incision not healing well;pain not improving;pain MACK GRAHAM DO [address] [facility], [place], [address], [employer] IV 05/04/2024 10:56:16 09/06/2024 text/html Kristi 39 y/o h ere with c/o hormone issues, she had Hysterectomy 04/18/2024, c/o acne, mood swings, hot flashes , MACK GRAHAM DO [address] [facility], [place], [address], [facility] 09/06/2024 12:50:18 OBGyn Episode No OBEpisode recorded.
--- OUTSIDE RECORDS SUMMARY | 2025-01-07 15:40 | XMS_ITS | Clinical Summary ---
Author Organization [facility] Address [facility]ly [facility] [place] [address] Care Team Providers Care Store Custodian Name Role Phone Stacie Ferreira MD Primary Care Provider [phone] Allergies Active Allergy Reactions Criticality Noted Date [...] Every 3 Years 1984 Annual Physical 1987 Hepatitis C 2002 DTaP, Tdap and Td Vaccines ( 1 - Tdap) 2003 Hepatitis B Vaccines (1 of 3 - 19+ 3-dose series) 2003 Pneumococcal Vaccine: Pediat rics (0 to 5 Years) and At-Risk Patients (6 to 49 Years) (1 of 2 - PCV) 2003 COVID-19 Vaccine (2 - 2023-2 5 season) 2024 12/04/2020 Mammogram Screening 2024 Cervical Cancer Screening Pa [...] PAPILLOMAVIRUS, HIGH-RISK TYPES Routine 09/22/2022 8:00 AM UPPER CUTTER from Last 3 Months or Most Recently Relevant to Health Maintenance Results * HUMAN PAPILLOMAVIRUS, HIGH-RISK TYPES (09/22/2022 8:00 AM UPPER CUTTER) SPEC DESCRIPTION CERVIX 09/24/19 2:53 PM UPPER CUTTER [facility] HPV DNA HIGH RISK NEGATIVE NEGATIVE 09/25/2022 12:27 PM UPPER CUTTER [facility] Comment:SEE CYTOLOGY REPORT 09/22/2022 8:00 AM UPPER CUTTER us Provider Non-Staff PATHOLOGY/CYTOLOGY ORDERABLES Final Result [facility] [address] [place] [address], from Last 3 Months or Most Recently Relevant to Health Maintenance Insurance ERIKA WISHRAM Care Teams Store Custodian Relationship Specialty Start Date End Date Stacie Ferreira MD [facility] [address] [place] [id number] PCP - General FAMILY PRACTICE 12/24/20
--- OUTSIDE RECORDS SUMMARY | 2025-01-07 15:40 | XMS_ITS | Clinical Summary ---
Author Organization [facility] Address [address] [place] [address] Care Team Providers Care Stone Lathe Operator Name Role Phone Treva Martell NP Primary Care Provider [phone] Allergies Active Allergy Reactions Criticality Noted Date [...] drink = 0.6 oz pur e alcohol) [facility] Utilities Answer Date Recorded In the past 12 months has [employer], [employer], oil, or water [employer] threatened to shut off services in your [...] any clubs o r organizations such as temple groups, unions, fraternal or athletic groups, or [...] any time in the past 12 m [facility], were you homeless or living in a fci (including now)? No 04/19/2024 Personal Safety Answer Date Recorded Have you ever been in or are you currently in a harmful physical or emotional relationship or is someone making you feel afraid or unsafe? 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 Gender Identity Not on file Sexual Orientation [...] 2023-2 5 season) 2024 12/04/2020 Influenza Vaccine (Season Ended) 2025 06/20/20 20 DTaP/Tdap/Td Vaccine (2 - Td or Tdap) 07/27/2033 07/27/2023 Hepatitis C Screening Completed 04/18/2024 HPV Vaccines Aged Out No longer eligi ble based on patient's age to complete this topic Medical Devices Implanted Type Area Bedspring Assembler Device Identifier Shelf Expiration Date Model / [...] CDT 04/18/2024 2:26 PM CDT Narrative BEATRIZ RAYA - 04/18/2024 2:58 PM CDT Bill to [facility] [email or web address] 1520 Patient is employed by/enrolled at:->[employer] us Gus Regan MD LAB MICROBIOLOGY - GENERAL OR DERABLES Edited Result - Final BEATRIZ [address] [facility] Department [place] [address] from Last 3 Months or Most Recently Relevant to Health Maintenance Insurance [facility] MEDICAID [facility] Advance Directives For more information, please contact: [phone] * Full Code (Latest Code Status on File) Date Activated Date Inactivated Comments 04/18/2024 3:12 PM 04/20/2024 2:43 PM Care Teams Stone Lathe Operator Relationship Specialty Start Date End Date Treva Martell NP [address] [place] [address] PCP - General Family Medicine 04/07/24
--- OUTSIDE RECORDS SUMMARY | 2025-01-07 16:14 | XMS_ITS | Clinical Summary ---
Author Organization [facility] Address [place] [address] Care Team Providers Care Core Sucker Name Role Phone Stacie Ferreira MD Primary [...] PAPILLOMAVIRUS, HIGH-RISK TYPES Routine 09/22/2022 8:00 AM COMPOUND COATING MACHINE OFFBEARER from Last 3 Months or Most Recently Relevant to Health Maintenance Results * HUMAN PAPILLOMAVIRUS, HIGH-RISK TYPES (09/22/2022 8:00 AM COMPOUND COATING MACHINE OFFBEARER) SPEC DESCRIPTION CERVIX 09/24/19 2:53 PM COMPOUND COATING MACHINE OFFBEARER [facility] HPV DNA HIGH RISK NEGATIVE NEGATIVE 09/25/2022 12:27 PM COMPOUND COATING MACHINE OFFBEARER [facility] Comment:SEE CYTOLOGY REPORT 09/22/2022 8:00 AM COMPOUND COATING MACHINE OFFBEARER us Provider Non-Staff PATHOLOGY/CYTOLOGY ORDERABLES Final Result [facility] [address] [place] [address], from Last 3 Months or Most Recently Relevant to Health Maintenance Insurance ERIKA HARCOURT Care Teams Core Sucker Relationship Specialty Start Date End Date Stacie Ferreira MD [facility] [address] [place] [id number] PCP - General FAMILY PRACTICE 12/24/20
--- OUTSIDE RECORDS SUMMARY | 2025-01-07 16:14 | XMS_ITS | Clinical Summary ---
Author Organization [facility] Address [address] [place] [address] Care Team Providers Care Dish Washer Name Role Phone Treva Martell NP Primary Care Provider [phone] Allergies Active Allergy Reactions Criticality Noted Date [...] drink = 0.6 oz pur e alcohol) [facility] Utilities Answer Date Recorded In the past 12 months has [employer], [employer], oil, or water [employer] threatened to shut off services in your [...] often do you attend chur ch or christian services? Never 04/19/2024 Do you belong to any clubs o r organizations such as latter-day groups, unions, fraternal or athletic groups, or [...] any time in the past [address] 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 Gender Identity Not on file Sexual Orientation [...] this topic Medical Devices Implanted Type Area Slurry Tank Tender Device Identifier Shelf Expiration Date Model / [...] - 04/18/2024 2:58 PM CDT Bill to [facility] [employer] [address] Patient is employed by/enrolled at:->[employer] [facility] us Gus Regan MD LAB MICROBIOLOGY - GENERAL OR DERABLES Edited Result - Final BEATRIZ [address] [facility] Department [place] [address] from Last 3 Months or Most Recently Relevant to Health Maintenance Insurance [facility] [place] [place] [address] [facility] Advance Directives For more information, please contact: [phone] * Full Code (Latest Code Status on File) Date Activated Date Inactivated Comments 04/18/2024 3:12 PM 04/20/2024 2:43 PM Care Teams Dish Washer Relationship Specialty Start Date End Date Treva Martell NP [address] [place] [address] PCP - General Family Medicine 04/07/24
--- OUTSIDE RECORDS SUMMARY | 2025-01-07 16:14 | XMS_ITS | Referral Summary ---
Author Organization [facility] Address [address] [place] [address] Care Team Providers Care Interior Design Consultant Name Role Phone Treva Martell NP Primary Care Provider [phone] Allergies Active Allergy Reactions Criticality Noted Date [...] drink = 0.6 oz pur e alcohol) [facility] Utilities Answer Date Recorded In the past 12 months has [employer], [employer], or water [employer] threatened to shut off services in your [...] week 04/19/2024 How often do you attend [facility] or latter day services? Never 04/19/2024 Do you belong to any clubs o r organizations such as gnosticist groups, unions, fraternal or athletic groups, or [...] any time in the past 12 m [facility], were you homeless or living in a longterm (including now)? No 04/19/2024 Personal Safety Answer Date Recorded Have you ever been in or are you currently in a harmful physical or emotional relationship or is someone making you feel afraid or unsafe? 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 Gender Identity Not on file Sexual [...] on file Medical Devices Implanted Type Area Railway Traction Line Worker Device Identifier Shelf Expiration Date Model / [...] - 04/18/2024 2:58 PM CDT [facility] Patient is employed by/enrolled at:->[facility] Gus Regan MD LAB MICROBIOLOGY - GENERAL OR DERABLES Edited Result - Final BEATRIZ [facility] [address] [facility] Department [place] [address] from Last 3 Months or Most Recently Relevant to Health Maintenance Insurance [facility] MEDICAID [facility] Advance Directives For more information, please contact: [phone] * Full Code (Latest Code Status on File) Date Activated Date Inactivated Comments 04/18/2024 3:12 PM 04/20/2024 2:43 PM Care Teams Interior Design Consultant Relationship Specialty Start Date End Date Treva Martell NP [address] [place] [address] PCP - General Family Medicine 04/07/24
--- NOTE | 2025-01-07 16:26 | ED_ITS ---
HPI - Skin/Abscess/Foreign Bdy General Chief complaint: Skin/Abscess/Foreign Body Stated complaint: swelling up left eye Source: patient Mode of arrival: ambulatory Limitations: no limitations History of Present Illness HPI narrative: Patient is a 39-year-old female with a left periorbital inflammation and erythema since this morning. Pain is present in this area. MD complaint: rash ( Left periorbital region) Onset (ago): day(s) ( 1) Location: face ( left periorbital) Severity: moderate Severity scale (1-10): 4 Quality: burning and sharp Pain Consistency: constant Relieving factors: none Exacerbating factors: none Context: other ( patient woke up this morning with a left erythema around the eyelid) Associated symptoms: denies other symptoms Treatments prior to arrival: none Related Data Home Medications ?Medication ?Instructions ?Recorded ?Confirmed ?Last Taken ?Type venlafaxine 75 mg capsule,extended 75 mg PO DAILY 08/02/19 12/28/24 03/07/20 07:00 History release 24 hr (Effexor XR) clonazepam 1 mg tablet 1 mg PO DIRECTED 06/24/24 12/28/24 Unknown History cholecalciferol (vitamin D3) 1,250 50,000 unit PO WEEKLY 09/22/24 12/28/24 Unknown History mcg (50,000 unit) capsule hydrochlorothiazide 12.5 mg tablet 25 mg PO DAILY 01/07/25 Unknown History valacyclovir 500 mg tablet 1,000 mg PO DAILY 01/07/25 Unknown History Allergies Allergy/AdvReac Type Severity Reaction Status Date / Time Sulfa (Sulfonamide Allergy Mild Hives Verified 01/07/25 16:00 Antibiotics) Review of Systems Review of Systems: All systems reviewed & are unremarkable except as noted in HPI and below Constitutional: Constitutional: Reports no additional constitutional complaints Eyes: Eyes: Reports no additional eye complaints ENT: Reports system reviewed and no additional complaints, except as documented Cardiovascular: Cardiovascular: Reports no additional cardiovascular complaints Respiratory: Respiratory: Reports no additional respiratory complaints Gastrointestinal: Gastrointestinal: Reports no additional gastrointestinal complaints Genitourinary: Genitourinary: Reports no additional female genitourinary complaints Musculoskeletal: Musculoskeletal: Reports no additional musculoskeletal complaints Integumentary/Breasts: Skin/Breast: Reports system reviewed and no additional complaints, except as docu Neurologic: Reports system reviewed and no additional complaints, except as documented Psychiatric: Psychiatric: Reports no additional psychiatric complaints Endocrine: Endocrine: Reports no additional endocrine complaints Hematologic/Lymphatic: Hematologic/Lymphatic: Reports no additional hematologic/lymphatic complaints Allergic/Immunologic: Allergic/Immunologic: Reports no additional allergic/immunologic complaints [facility] Past Medical History Medical History Family history of pancreatic cancer Family history of colon cancer in father Nicotine dependence High cholesterol HTN (hypertension) Bronchitis Asthma Surgical History Surgical History History of hand surgery Left March 2020 H/O oophorectomy Family History Family History Father Pancreatic cancer Mother Hypertension Diabetes mellitus Social History Social History Smoking packs per day: 0.5 Smoking cigarettes per day: 10.0 Years smoked: 20 Smoking pack-years: 10.00 Smoking status: Current every day smoker Tobacco type: cigarettes Second hand tobacco smoke exposure: No Smoking end date: 05/30/20 Alcohol intake: never Substance use: current Substance use type: marijuana Last use: 03/01/2020 Gender identity (if verbalized by the patient): Female Spiritual care concerns: No Exam Const: General: healthy appearing Nutritional Appearance: well nourished Orientation/consciousness: patient oriented x3 HENMT: Head: normal to inspection Ears: external ears normal Face/Nose/Sinus: Normal external nose present Eyes: Conjunctivae: conjunctivae normal Pupils: Equal, round and reactive pupils present EOM: EOMs intact bilaterally Neck: Neck: normal visual inspection Chest: Chest palpation & inspection: normal inspection of the chest Resp: Effort & Inspection: normal respiratory effort and not labored Auscultation: clear to auscultation bilaterally and no crackles Cardio: Rate: regular rate Rhythm: regular rhythm Heart sounds: no murmurs GI: Inspection: non-distended Auscultation: normal bowel sounds : General: Yes bladder normal to palpation Back/Spine/Pelvis: Back: no CVA tenderness Skin: General skin exam: No normal color Rashes: rash noted Wounds: no wounds Other: patient has a left periorbital erythema with puffiness mostly under the eye but slightly to the top of the eye; there is a small nidus near the left nostril Neuro: General: patient oriented x3 Cranial nerves: Yes Nystagmus not present Speech: normal speech Extrem: General: normal to inspection Psych: Mental Status: mental status grossly normal Affect: normal affect Course Vital Signs Vital signs: Vital Signs Temperature 36.6 C 01/07/25 15:39 Pulse Rate 83 01/07/25 15:39 Respiratory Rate 18 01/07/25 15:39 Blood Pressure 154/92 H 01/07/25 15:39 Pulse Oximetry 99 01/07/25 15:39 Oxygen Delivery Room Air 01/07/25 15:39 Temperature 36.6 C 01/07/25 15:39 Pulse Rate 83 01/07/25 15:39 Respiratory Rate 18 01/07/25 15:39 Blood Pressure 154/92 H 01/07/25 15:39 Pulse Oximetry 99 01/07/25 15:39 Oxygen Delivery Room Air 01/07/25 15:39 MDM - Skin/Abscess/Foreign Bdy MDM Narrative Medical decision making narrative: patient is a 39-year-old female with a left eyelid erythema and pain for the past day. This appears to be periorbital cellulitis. We will do clindamycin. Discharge Plan Discharge Clinical Impression: Periorbital cellulitis of left eye Patient Disposition: Home Condition: Stable Instructions: Antibiotic Form, Periorbital Cellulitis (ED) Patient Language: [place] Islander Prescriptions: New clindamycin HCl [Cleocin HCl] 300 mg capsule 300 mg PO TID 10 Days Qty: 30 0RF No Action valacyclovir 500 mg tablet 1,000 mg PO DAILY Rx Instructions: TAKE 2 TABS ORALLY DAILY FOR 90 DAYS PLEASE GET LABS COMPLETED TO MONITOR KIDNEY FUNCTION hydrochlorothiazide 12.5 mg tablet 25 mg PO DAILY Rx Instructions: TAKE 1 TABLET BY MOUTH DAILY FOR 3 DAYS, THEN INCREASE TO 2 TABLETS DAILY clonazepam 1 mg tablet 1 mg PO DIRECTED venlafaxine [Effexor XR] 75 mg Capsule,Extended Release 24hr 75 mg PO DAILY cholecalciferol (vitamin D3) 1,250 mcg (50,000 unit) capsule 50,000 unit PO WEEKLY lisinopril 40 mg tablet See Rx Instructions .ROUTE .COMPLEX Qty: 30 1RF Dose Instruction: TAKE 1 TABLET BY MOUTH EVERY DAY -MONITOR BLOOD PRESSURE 2X DAILY BEFORE COFFEE, STIMULANT, BP MED Rx Instructions: TAKE 1 TABLET BY MOUTH EVERY DAY -MONITOR BLOOD PRESSURE 2X DAILY BEFORE COFFEE, STIMULANT, BP MED budesonide-formoterol [Symbicort] 160-4.5 mcg/actuation HFA aerosol inhaler See Rx Instructions .ROUTE .COMPLEX Qty: 10.2 2RF Dose Instruction: INHALE 1 PUFF DAILY TAKE ONE INHALATION ONCE DAILY. Rx Instructions: INHALE 1 PUFF DAILY TAKE ONE INHALATION ONCE DAILY. albuterol sulfate 90 mcg/actuation HFA aerosol inhaler See Rx Instructions .ROUTE .COMPLEX Qty: 8.5 2RF Dose Instruction: INHALE 2 PUFFS BY MOUTH FOUR TIMES DAILY Rx Instructions: INHALE 2 PUFFS BY MOUTH FOUR TIMES DAILY Follow-up/Referrals: Treva Martell APRN [Primary Care Provider] - Time of Disposition: 16:33
[2025-01-07] MEDS: CLINDAMYCIN HCL 150 MG CAP 600 MG PO (16:36)
== END 2025-01-07 16:42 | disposition home or self-care (01) ==
PROVIDERS: Emergency Provider Emergency Medicine; PCP Nurse Practitioner Family
DX: L03.213 Periorbital cellulitis (principal); I10 Essential (primary) hypertension; F17.210 Nicotine dependence, cigarettes, uncomplicated; Z79.899 Other long term (current) drug therapy
CPT/HCPCS: 99283

== ENCOUNTER 2025-01-17 10:46 | Outpatient (CLI) | payer OTHER, SELFPAY ==
--- NOTE | ~2025-01-17 | XR_ITS ---
[id number] Ordering provider: Treva Martell APRN History: . LT arm numbness/tingle X 3-4 months, NKI . Comparison: None. FINDINGS: VERTEBRAL BODIES: Normal height and alignment. No visible fracture or subluxation. The dens is intact . Degenerative changes of the spine. DISK SPACES: Narrowing of the disc C4-C5 and C6-C7. Multilevel uncovertebral joint osteoarthritic robert nges. PARASPINOUS SOFT TISSUES: No prevertebral soft tissue swelling. IMPRESSION: No acute osseous abnormality cervical spine. Multilevel degenerative disc disease. Reviewed, dictated and finalized at location A.
--- NOTE | ~2025-01-17 | XR_ITS ---
AP and lateral views of the bilateral hips Clinical history: Pain Findings: No acute fracture or dislocation is seen. Osseous alignment is anatomic. Bilateral hip and SI joint spaces are preserved. Soft tissues are unremarkable. Impression: No significant abnormality is seen. Reviewed, dictated and finalized at location . Impression: No significant abnormality is seen.
--- NOTE | ~2025-01-17 | XR_ITS ---
Lumbosacral Spine: AP and lateral views Clinical History: Pain Findings: The normal lordotic curve is maintained. The vertebral bodies and posterior elements are i ntact. There is mild degenerative disc narrowing at L3-L4. Mild facet arthropathy present at the lowe r lumbar spine. The sacroiliac joints are normally outlined. Impression: Mild degenerative spondylosis, as above. Reviewed, dictated and finalized at location . Impression: Mild degenerative spondylosis, as above.
[2025-01-17 11:11] LABS: Hemoglobin A1C 5.6 % (<5.7)
--- OUTSIDE RECORDS SUMMARY | 2025-01-17 11:22 | XMS_ITS | Clinical Summary ---
Author Organization [facility] Address [address] [place] [address] Care Team Providers Care Clinic Supervisor Name Role Phone Treva Martell NP Primary Care Provider [phone] Allergies Active Allergy Reactions Criticality Noted Date [...] Recorded In the past 12 months has [employer], [employer], oil, or water [employer] threatened to shut off services in your [...] often do you attend chur ch or taoist services? 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 Gender Identity Not on file Sexual Orientation [...] this topic Medical Devices Implanted Type Area Master Steam Yacht Device Identifier Shelf Expiration Date Model / [...] - 04/18/2024 2:58 PM CDT Bill to [facility] [employer] 1520 Patient is employed by/enrolled at:->[facility] Gus Regan MD LAB MICROBIOLOGY - GENERAL OR DERABLES Edited Result - Final BEATRIZ [address] [facility] Department [place] [address] from Last 3 Months or Most Recently Relevant to Health Maintenance Insurance [facility] MEDICAID [facility] Advance Directives For more information, please contact: [phone] * Full Code (Latest Code Status on File) Date Activated Date Inactivated Comments 04/18/2024 3:12 PM 04/20/2024 2:43 PM Care Teams Clinic Supervisor Relationship Specialty Start Date End Date Treva Martell NP [address] [place] [address] PCP - General Family Medicine 04/07/24
--- OUTSIDE RECORDS SUMMARY | 2025-01-17 11:22 | XMS_ITS | Referral Summary ---
Author Organization [facility] Address [address] [place] [address] Care Team Providers Care Wash Helper Name Role Phone Treva Martell NP Primary Care Provider [phone] Allergies Active Allergy Reactions Criticality Noted Date [...] oz pur e alcohol) [facility] Utilities Answer Date Recorded In the past 12 months has [employer], [employer], or water [employer] threatened to shut off services in your [...] week 04/19/2024 How often do you attend [facility] or bahai services? Never 04/19/2024 Do you belong to any clubs o r organizations such as shinto groups, unions, fraternal or athletic groups, or [...] any time in the past 12 m [facility], were you homeless or living in a fdc (including now)? No 04/19/2024 Personal Safety Answer Date Recorded Have you ever been in or are you currently in a harmful physical or emotional relationship or is someone making you feel afraid or unsafe? 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 Gender Identity Not on file Sexual Orientation [...] on file Medical Devices Implanted Type Area Counterintelligence Specialist Device Identifier Shelf Expiration Date Model / [...] - 04/18/2024 2:58 PM CDT [facility] Patient is employed by/enrolled at:->[facility] Gus Regan MD LAB MICROBIOLOGY - GENERAL OR DERABLES Edited Result - Final BEATRIZ MH [address] [facility] Department [place] [address] from Last 3 Months or Most Recently Relevant to Health Maintenance Insurance [facility] MEDICAID [facility] Advance Directives For more information, please contact: [phone] * Full Code (Latest Code Status on File) Date Activated Date Inactivated Comments 04/18/2024 3:12 PM 04/20/2024 2:43 PM Care Teams Wash Helper Relationship Specialty Start Date End Date Treva Martell NP [address] [place] [address] PCP - General Family Medicine 04/07/24
[2025-01-18 21:54] LABS: Vitamin D 25 Hydroxy 35 ng/mL (30-100)
== END 2025-01-17 10:47 | disposition home or self-care (01) ==
PROVIDERS: PCP Nurse Practitioner Family; Visit Provider Nurse Practitioner Family
DX: E55.9 Vitamin D deficiency, unspecified (principal); R73.03 Prediabetes; M54.9 Dorsalgia, unspecified; M25.552 Pain in left hip; M50.321 Other cervical disc degeneration at C4-C5 level; M43.06 Spondylolysis, lumbar region
CPT/HCPCS: 36415; 72040; 72100; 73521; 82306; 83036

== ENCOUNTER 2025-02-21 16:33 | Emergency (ER) | payer OTHER, SELFPAY ==
[2025-02-21 16:38] VITALS: BP 149/97; PULSE 77; RESP 20; TEMP 36.8; O2SAT 100
[2025-02-21 16:40] VITALS: O2SAT 100
--- NOTE | 2025-02-21 17:33 | ED_ITS ---
HPI - Ear Problem General Chief complaint: Upper Respiratory Infection Stated complaint: uri/ear Source: patient Mode of arrival: ambulatory Limitations: no limitations History of Present Illness HPI Narrative: Patient is a 39-year-old female with left worse than right ear pains for the past 3 days. She also has a cough and congestion. Patient was just on Augmentin and prednisone for asthma/ COPD issues. More so, her complaints today are the ears. MD Complaint: ear pain ( Bilateral; left worse than right) Location: bilateral Duration: constant Severity: moderate Relieving factors: nothing Exacerbating factors: nothing Context: Reports other ( patient has left worse than right ear pains with a cough and congestion) Discharge from ear: Reports no Associated symptoms ear: external ear tenderness ( left) Treatment prior to arrival: none Related Data Home Medications ?Medication ?Instructions ?Recorded ?Confirmed ?Last Taken ?Type venlafaxine 75 mg capsule,extended 75 mg PO DAILY 08/02/19 01/25/25 03/07/20 07:00 History release 24 hr (Effexor XR) clonazepam 1 mg tablet 1 mg PO DIRECTED 06/24/24 01/25/25 Unknown History hydrochlorothiazide 12.5 mg tablet 25 mg PO DAILY 01/07/25 01/25/25 Unknown History linaclotide 145 mcg capsule 145 mcg PO DAILY 01/25/25 01/25/25 Unknown History (Linzess) Allergies Allergy/AdvReac Type Severity Reaction Status Date / Time Sulfa (Sulfonamide Allergy Mild Hives Verified 01/25/25 09:08 Antibiotics) Review of Systems Review of Systems: All systems reviewed & are unremarkable except as noted in HPI and below Constitutional: Constitutional: Reports no additional constitutional complaints Eyes: Eyes: Reports no additional eye complaints ENT: Reports system reviewed and no additional complaints, except as documented Cardiovascular: Cardiovascular: Reports no additional cardiovascular complaints Respiratory: Respiratory: Reports no additional respiratory complaints Gastrointestinal: Gastrointestinal: Reports no additional gastrointestinal complaints Genitourinary: Genitourinary: Reports no additional female genitourinary complaints Musculoskeletal: Musculoskeletal: Reports no additional musculoskeletal co mplaints Integumentary/Breasts: Skin/Breast: Reports system reviewed and no additional complaints, except as docu Neurologic: Reports system reviewed and no additional complaints, except as documented Psychiatric: Psychiatric: Reports no additional psychiatric complaints Endocrine: Endocrine: Reports no additional endocrine complaints Hematologic/Lymphatic: Hematologic/Lymphatic: Reports no additional hematologic/lymphatic complaints Allergic/Immunologic: Allergic/Immunologic: Reports no additional allergic/immunologic complaints [facility] Past Medical History Medical History Family history of pancreatic cancer Family history of colon cancer in father Nicotine dependence High cholesterol HTN (hypertension) Bronchitis Asthma Surgical History Surgical History History of placement of ear tubes H/O: hysterectomy 03/2024 History of hand surgery Left March 2020 H/O oophorectomy Family History Family History Father Pancreatic cancer Mother Hypertension Diabetes mellitus Social History Social History Smoking packs per day: 0.5 Smoking cigarettes per day: 10.0 Years smoked: 20 Smoking pack-years: 10.00 Smoking status: Current every day smoker Tobacco type: cigarettes Second hand tobacco smoke exposure: No Smoking end date: 05/30/20 Alcohol intake: never Substance use: current Substance use type: marijuana Last use: 03/01/2020 Gender identity (if verbalized by the patient): Female Spiritual care concerns: No Exam Const: General: healthy appearing Nutritional Appearance: well nourished Orientation/consciousness: patient oriented x3 HENMT: Head: normal to inspection Ears: external ears normal, TM's abnormal bilaterally ( unable to fully appreciate entire TMs bilateral due to wax and inflammatio), EAC's not normal, Abnormal EAC present ( left greater than right red and inflamed erythema of the auditory canals) and TM abnormal ( left TM has redness but hard to see completely due to wax and inflammation) Face/Nose/Sinus: Normal external nose present Eyes: Conjunctivae: conjunctivae normal Pupils: Equal, round and reactive pupils present EOM: EOMs intact bilaterally Neck: Neck: normal visual inspection Chest: Chest palpation & inspection: normal inspection of the chest Resp: Effort & Inspection: normal respiratory effort and not labored Auscultation: clear to auscultation bilaterally and no crackles Cardio: Rate: regular rate Rhythm: regular rhythm Heart sounds: no murmurs GI: Inspection: non-distended GI Palp: Yes Soft to palpation and No Tenderness to palpation present (GI) Auscultation: normal bowel sounds : General: Yes bladder normal to palpation Back/Spine/Pelvis: Back: no CVA tenderness Skin: General skin exam: normal color Rashes: no rashes Wounds: no wounds Neuro: General: patient oriented x3, moves all extremities, no meningeal signs, no focal motor deficits and CN's II-XI intact bilaterally Cranial nerves: Yes Nystagmus not present Extrem: General: normal to inspection Psych: Mental Status: mental status grossly normal Affect: normal affect Attitude: cooperative Course Vital Signs Vital signs: Vital Signs Temperature 36.8 C 02/21/25 16:38 Pulse Rate 77 02/21/25 16:38 Respiratory Rate 20 02/21/25 16:38 Blood Pressure 149/97 H 02/21/25 16:38 Pulse Oximetry 100 02/21/25 16:38 Oxygen Delivery Room Air 02/21/25 16:38 Temperature 36.8 C 02/21/25 16:38 Pulse Rate 77 02/21/25 16:38 Respiratory Rate 02/21/25 16:38 Blood Pressure 149/97 H 02/21/25 16:38 Pulse Oximetry 02/21/25 16:40 Oxygen Delivery Room Air 02/21/25 16:40 Medical Decision Making MDM Narrative Medical decision making narrative: patient is a 39-year-old female with bilateral ear pains and a cough and congestion for the past 3 days. We will start with antibiotic ear drops and azithromycin. Vital Signs Vital Signs: Vital Signs Temperature 36.8 C 02/21/25 16:38 Pulse Rate 77 02/21/25 16:38 Respiratory Rate 02/21/25 16:38 Blood Pressure 149/97 H 02/21/25 16:38 Pulse Oximetry 100 02/21/25 16:38 Oxygen Delivery Room Air 02/21/25 16:38 Temperature 36.8 C 02/21/25 16:38 Pulse Rate 77 02/21/25 16:38 Respiratory Rate 02/21/25 16:38 Blood Pressure 149/97 H 02/21/25 16:38 Pulse Oximetry 02/21/25 16:40 Oxygen Delivery Room Air 02/21/25 16:40 Discharge Plan Discharge Clinical Impression: Otitis media Qualifiers: Otitis media type: unspecified Chronicity: acute Qualified Code(s): H66.90 - Otitis media, unspecified, unspecified ear Otitis externa Qualifiers: Otitis externa type: unspecified type Chronicity: acute Laterality: bilateral Qualified Code(s): H60.503 - Unspecified acute noninfective otitis externa, bilateral Patient Disposition: Home Condition: Stable Instructions: Antibiotic Form, Swimmer's Ear (ED), Ear Infection (AC) Patient Language: Georgian Prescriptions: New azithromycin 250 mg tablet See Rx Instructions .ROUTE .COMPLEX Qty: 6 0RF Rx Instructions: For 250 mg dose pack: take 500 mg today (day 1), then 250 mg for 4 days (days 2-5) [id number] 3.5-10,000-1 mg/mL-unit/mL-% drops,suspension 3 drp EACH EAR TID 10 Days Qty: 10 0RF No Action hydrochlorothiazide 12.5 mg tablet 25 mg PO DAILY Rx Instructions: TAKE 1 TABLET BY MOUTH DAILY FOR 3 DAYS, THEN INCREASE TO 2 TABLETS DAILY clonazepam 1 mg tablet 1 mg PO DIRECTED venlafaxine [Effexor XR] 75 mg Capsule,Extended Release 24hr 75 mg PO DAILY Linzess 145 mcg capsule 145 mcg PO DAILY budesonide-formoterol [Symbicort] 160-4.5 mcg/actuation HFA aerosol inhaler See Rx Instructions .ROUTE .COMPLEX Qty: 10.2 2RF Dose Instruction: INHALE 1 PUFF DAILY TAKE ONE INHALATION ONCE DAILY. Rx Instructions: INHALE 1 PUFF DAILY TAKE ONE INHALATION ONCE DAILY. albuterol sulfate 90 mcg/actuation HFA aerosol inhaler See Rx Instructions .ROUTE .COMPLEX Qty: 8.5 2RF Dose Instruction: INHALE 2 PUFFS BY MOUTH FOUR TIMES DAILY Rx Instructions: INHALE 2 PUFFS BY MOUTH FOUR TIMES DAILY valacyclovir 500 mg tablet 1,000 mg PO DAILY Qty: 90 0RF Rx Instructions: TAKE 2 TABS ORALLY DAILY cyclobenzaprine 7.5 mg tablet See Rx Instructions .ROUTE .COMPLEX Qty: 60 0RF Dose Instruction: TAKE 1 TABLET TWICE DAILY NEEDED FOR MUSCLE SPASMS Rx Instructions: TAKE 1 TABLET TWICE DAILY NEEDED FOR MUSCLE SPASMS lisinopril 40 mg tablet See Rx Instructions .ROUTE .COMPLEX Qty: 30 1RF Dose Instruction: TAKE 1 TABLET BY MOUTH EVERY DAY -MONITOR BLOOD PRESSURE 2X DAILY BEFORE COFFEE, STIMULANT, BP MED Rx Instructions: TAKE 1 TABLET BY MOUTH EVERY DAY -MONITOR BLOOD PRESSURE 2X DAILY BEFORE COFFEE, STIMULANT, BP MED Follow-up/Referrals: Treva Martell APRN [Primary Care Provider] - Time of Disposition: 17:33
== END 2025-02-21 17:38 | disposition home or self-care (01) ==
PROVIDERS: Emergency Provider Emergency Medicine; PCP Nurse Practitioner Family
DX: H66.90 Otitis media, unspecified, unspecified ear (principal); H60.503 Unspecified acute noninfective otitis externa, bilateral; J44.9 Chronic obstructive pulmonary disease, unspecified; F17.210 Nicotine dependence, cigarettes, uncomplicated
CPT/HCPCS: 99283

== ENCOUNTER 2025-02-23 05:35 | Emergency (ER) | payer OTHER, SELFPAY ==
[2025-02-23 05:37] VITALS: BP 160/103; PULSE 89; RESP 18; TEMP 36.9; O2SAT 100
--- NOTE | 2025-02-23 05:48 | ED.EAR ---
HPI - Ear Problem General Chief complaint: Ear Stated complaint: ear infection Time Seen by Provider: 02/23/25 05:43 Source: patient and family Mode of arrival: ambulatory Limitations: no limitations History of Present Illness HPI Narrative: This is a 39-year-old female that presents with some left ear swelling and pain with some left submandibular gland inflammation and tenderness with no fever chills was seen approximately 3 days ago and treated with antibiotics with no relief and persistent inflammation and tenderness. Currently no drainage from the left ear canal there is no sore throat no shortness of breath. MD Complaint: ear pain Location: left ear Severity: moderate Relieving factors: nothing Exacerbating factors: nothing Context: Reports recent illness Associated symptoms ear: external ear tenderness, ear swelling and neck swelling Related Data Home Medications ?Medication ?Instructions ?Recorded ?Confirmed ?Last Taken ?Type venlafaxine 75 mg capsule,extended 75 mg PO DAILY 08/02/19 01/25/25 03/07/20 07:00 History release 24 hr (Effexor XR) clonazepam 1 mg tablet 1 mg PO DIRECTED 06/24/24 01/25/25 Unknown History hydrochlorothiazide 12.5 mg tablet 25 mg PO DAILY 01/07/25 01/25/25 Unknown History linaclotide 145 mcg capsule 145 mcg PO DAILY 01/25/25 01/25/25 Unknown History (Linzess) Allergies Allergy/AdvReac Type Severity Reaction Status Date / Time Sulfa (Sulfonamide Allergy Mild Hives Verified 02/23/25 05:46 Antibiotics) Review of Systems Review of Systems: All systems reviewed & are unremarkable except as noted in HPI and below PMFSH Past Medical History Medical History Family history of pancreatic cancer Family history of colon cancer in father Nicotine dependence High cholesterol HTN (hypertension) Bronchitis Asthma Surgical History Surgical History History of placement of ear tubes H/O: hysterectomy 03/2024 History of hand surgery Left March 2020 H/O oophorectomy Family History Family History Father Pancreatic cancer Mother Hypertension Diabetes mellitus Social History Social History Smoking packs per day: 0.5 Smoking cigarettes per day: 10.0 Years smoked: 20 Smoking pack-years: 10.00 Smoking status: Current every day smoker Tobacco type: cigarettes Second hand tobacco smoke exposure: No Smoking end date: 05/30/20 Alcohol intake: never Substance use: current Substance use type: marijuana Last use: 03/01/2020 Gender identity (if verbalized by the patient): Female Spiritual care concerns: No Exam Const: General: healthy appearing Nutritional Appearance: well nourished Orientation/consciousness: patient oriented x3 Limitations: no limitations HENMT: Other: Left ear canal erythematous and swollen with currently no drainage Eyes: Conjunctivae: conjunctivae normal Pupils: Equal, round and reactive pupils present Neck: Neck: normal visual inspection and lymphadenopathy Chest: Chest palpation & inspection: normal inspection of the chest Resp: Effort & Inspection: normal respiratory effort Auscultation: clear to auscultation bilaterally Cardio: Rate: regular rate Rhythm: regular rhythm GI: GI Palp: Yes Soft to palpation Auscultation: normal bowel sounds Course Course Emergency Course: a dose of 1g IM ceftriaxone administered advised patient to discontinue her Zithromax and current ear drops and will send antibiotics to her local pharmacy. Vital Signs Vital signs: Vital Signs Temperature 36.9 C 02/23/25 05:37 Pulse Rate 89 02/23/25 05:37 Respiratory Rate 18 02/23/25 05:37 Blood Pressure 160/103 H 02/23/25 05:37 Pulse Oximetry 100 02/23/25 05:37 Oxygen Delivery Room Air 02/23/25 05:37 Temperature 36.9 C 02/23/25 05:37 Pulse Rate 89 02/23/25 05:37 Respiratory Rate 18 02/23/25 05:37 Blood Pressure 160/103 H 02/23/25 05:37 Pulse Oximetry 100 02/23/25 05:37 Oxygen Delivery Room Air 02/23/25 05:37 Medical Decision Making Vital Signs Vital Signs: Vital Signs Temperature 36.9 C 02/23/25 05:37 Pulse Rate 89 02/23/25 05:37 Respiratory Rate 18 02/23/25 05:37 Blood Pressure 160/103 H 02/23/25 05:37 Pulse Oximetry 100 02/23/25 05:37 Oxygen Delivery Room Air 02/23/25 05:37 Temperature 36.9 C 02/23/25 05:37 Pulse Rate 89 02/23/25 05:37 Respiratory Rate 18 02/23/25 05:37 Blood Pressure 160/103 H 02/23/25 05:37 Pulse Oximetry 100 02/23/25 05:37 Oxygen Delivery Room Air 02/23/25 05:37 Critical Care Time Critical Care Time Critical Care Time: No Discharge Plan Discharge Clinical Impression: Otitis externa Qualifiers: Otitis externa type: unspecified type Chronicity: acute Laterality: left Qualified Code(s): H60.502 - Unspecified acute noninfective otitis externa, left ear Patient Disposition: Home Condition: Stable Instructions: Antibiotic Form, Ear Infection (ED), Earache (ED) Additional Instructions: advised to discontinue current antibiotics and start antibiotics that were recently sent to your local pharmacy. Patient Language: Polish Prescriptions: New amoxicillin-pot clavulanate [Augmentin] 500-125 mg tablet 1 tablet PO TID Qty: 30 0RF ciprofloxacin HCl 0.2 % dropperette 5 drp EACH EAR Q12H 7 Days Qty: 14 0RF naproxen 500 mg tablet 500 mg PO BID Qty: 10 0RF No Action hydrochlorothiazide 12.5 mg tablet 25 mg PO DAILY Rx Instructions: TAKE 1 TABLET BY MOUTH DAILY FOR 3 DAYS, THEN INCREASE TO 2 TABLETS DAILY azithromycin 250 mg tablet See Rx Instructions .ROUTE .COMPLEX Qty: 6 0RF Rx Instructions: For 250 mg dose pack: take 500 mg today (day 1), then 250 mg for 4 days (days 2-5) qacpgufh-[id number]-PF 3.5-10,000-1 mg/mL-unit/mL-% drops,suspension 3 drp EACH EAR TID 10 Days Qty: 10 0RF clonazepam 1 mg tablet 1 mg PO DIRECTED venlafaxine [Effexor XR] 75 mg Capsule,Extended Release 24hr 75 mg PO DAILY Linzess 145 mcg capsule 145 mcg PO DAILY budesonide-formoterol [Symbicort] 160-4.5 mcg/actuation HFA aerosol inhaler See Rx Instructions .ROUTE .COMPLEX Qty: 10.2 2RF Dose Instruction: INHALE 1 PUFF DAILY TAKE ONE INHALATION ONCE DAILY. Rx Instructions: INHALE 1 PUFF DAILY TAKE ONE INHALATION ONCE DAILY. albuterol sulfate 90 mcg/actuation HFA aerosol inhaler See Rx Instructions .ROUTE .COMPLEX Qty: 8.5 2RF Dose Instruction: INHALE 2 PUFFS BY MOUTH FOUR TIMES DAILY Rx Instructions: INHALE 2 PUFFS BY MOUTH FOUR TIMES DAILY cyclobenzaprine 7.5 mg tablet See Rx Instructions .ROUTE .COMPLEX Qty: 60 0RF Dose Instruction: TAKE 1 TABLET TWICE DAILY NEEDED FOR MUSCLE SPASMS Rx Instructions: TAKE 1 TABLET TWICE DAILY NEEDED FOR MUSCLE SPASMS lisinopril 40 mg tablet See Rx Instructions .ROUTE .COMPLEX Qty: 30 1RF Dose Instruction: TAKE 1 TABLET BY MOUTH EVERY DAY -MONITOR BLOOD PRESSURE 2X DAILY BEFORE COFFEE, STIMULANT, BP MED Rx Instructions: TAKE 1 TABLET BY MOUTH EVERY DAY -MONITOR BLOOD PRESSURE 2X DAILY BEFORE COFFEE, STIMULANT, BP MED valacyclovir 500 mg tablet See Rx Instructions .ROUTE .COMPLEX Qty: 60 1RF Dose Instruction: TAKE 2 TABLETS BY MOUTH DAILY Rx Instructions: TAKE 2 TABLETS BY MOUTH DAILY Follow-up/Referrals: Treva Martell APRN [Primary Care Provider] - Time of Disposition: 05:54
[2025-02-23] MEDS: cefTRIAXone 1 GM, LIDOCAINE 1% LOCAL INJ 2.1 ML IM (05:55)
[2025-02-23] MEDS: KETOROLAC (*BKC) 60 MG/2 ML VIAL IM (06:05)
[2025-02-23 06:23] VITALS: BP 158/89; PULSE 89; RESP 20; O2SAT 98
== END 2025-02-23 06:23 | disposition home or self-care (01) ==
PROVIDERS: Emergency Provider Emergency Medicine; PCP Nurse Practitioner Family
DX: H60.502 Unspecified acute noninfective otitis externa, left ear (principal); I10 Essential (primary) hypertension; F17.210 Nicotine dependence, cigarettes, uncomplicated
CPT/HCPCS: 96372; 99284; J0696; J1885; J2003

== ENCOUNTER 2025-03-07 14:27 | Outpatient (CLI) | payer OTHER, SELFPAY ==
--- OUTSIDE RECORDS SUMMARY | 2025-03-07 14:37 | XMS_ITS | Clinical Summary ---
Author Organization [facility] Address [facility] [place] [address] Care Team Providers Care Railroad Car Checker Name Role Phone Stacie Ferreira MD Primary Care Provider [phone] Allergies Active Allergy Reactions Criticality Noted Date [...] 9:15 AM CDT Height 175.3 cm (5' 9) 12/24/2020 6:24 AM CDT Body Mass Index [...] PAPILLOMAVIRUS, HIGH-RISK TYPES Routine 09/22/2022 8:00 AM KNITTING MACHINE FIXER HEAD from Last 3 Months or Most Recently Relevant to Health Maintenance Results * HUMAN PAPILLOMAVIRUS, HIGH-RISK TYPES (09/22/2022 8:00 AM KNITTING MACHINE FIXER HEAD) SPEC DESCRIPTION CERVIX 09/24/19 2:53 PM KNITTING MACHINE FIXER HEAD [facility] HPV DNA HIGH RISK NEGATIVE NEGATIVE 09/25/2022 12:27 PM KNITTING MACHINE FIXER HEAD [facility] Comment:SEE CYTOLOGY REPORT 09/22/2022 8:00 AM KNITTING MACHINE FIXER HEAD us Provider Non-Staff PATHOLOGY/CYTOLOGY ORDERABLES Final Result [facility] [address] [place] [address], from Last 3 Months or Most Recently Relevant to Health Maintenance Insurance ERIKA SMITHFIELD Care Teams Railroad Car Checker Relationship Specialty Start Date End Date Stacie Ferreira MD [facility] [address] [place] [id number] PCP - General FAMILY PRACTICE 12/24/20
--- OUTSIDE RECORDS SUMMARY | 2025-03-07 14:37 | XMS_ITS | Referral Summary ---
Author Organization [facility] Address [address] [place] [address] Care Team Providers Care Molding Associate Name Role Phone Treva Martell NP Primary Care Provider [phone] Allergies Active Allergy Reactions Criticality Noted Date [...] 0.6 oz pur e alcohol) [facility] Utilities Answer Date Recorded In the past 12 months has [employer], [employer], or water [employer] threatened to shut off services in your [...] week 04/19/2024 [facility] services? Never 04/19/2024 Do you [...] any time in the past 12 m [facility], were you homeless or living in a [...] on file Legal Sex Female 11:28 AM [employer] Gender Identity Not on file Sexual Orientation [...] 3:10 PM CDT Height 175.3 cm (5' 9) 04/18/2024 3:10 PM CDT Body Mass Index 40.86 04/18/2024 3:10 PM CDT Plan of Treatment Not on file Medical Devices Implanted Type Area Operations Asst Device Identifier Shelf Expiration Date Model / [...] - 04/18/2024 2:58 PM CDT [facility] Patient is employed by/enrolled at:->[facility] Gus Regan MD LAB MICROBIOLOGY - GENERAL OR DERABLES Edited Result - Final [facility] [address] [facility] [place] [address] from Last 3 Months or Most Recently Relevant to Health Maintenance Insurance [facility]LY [facility] MEDICAID [facility] Advance Directives For more information, please contact: [phone] * Full Code (Latest Code Status on File) Date Activated Date Inactivated Comments 04/18/2024 3:12 PM 04/20/2024 2:43 PM Care Teams Molding Associate Relationship Specialty Start Date End Date Treva Martell NP [address] [place] [address] PCP - General Family Medicine 04/07/24
--- OUTSIDE RECORDS SUMMARY | 2025-03-07 14:37 | XMS_ITS | Data Portability ---
Author Organization [facility] Address [address] [place] [address] Assessment No assessment recorded. Plan of Treatment Reminders Order Date Submit Date Provider Last Modified By Organization Details Last Modified Time Details Appointments None recorded. Lab estradiol, serum 2024 025 [employer] [facility], [address] [place], [address], 5 11:57:10 FSH (follicle-s timulating hormone), serum 2024 025 [employer] [facility] El[facility]io, [address] [place] [address], [address], 5 12:35:31 vitamin D, 25-hydroxy, total, serum 2024 025 [employer] [facility], [address] [place], [address], 5 11:57:11 biopsy, tissue 2023 024 [employer] [facility], [address] [place], [address], 4 16:09:00 test, urine 2023 024 kdominick 1 [facility], [address] [place], [address], 4 20:15:19 HPV E6+E7 mRNA, qualitative PCR, cervix 2023 024 [facility] Eladio, [address] [place], [address], 09:22:35 pap, LB 2023 024 [facility], [address] [facility], [place], [address], 18:37:24 Referral None recorded. Procedures None recorded. Surgeries None recorded. Imaging US, transvagina l 2023 024 kbritsch Not available 17:53:49 Medication Orders ketorolac 10 mg tablet 2023 025 [id number], [address] [place], [address], 12:27:48 Patient TargetsNo targets recorded. Patient Instructions Encounter Date Encounter Id Patient Instructions Last Modified By Organization Details Last Modified Time 12/20/2023 [id number] body mass index: care instructions Not available [...] tive, LCMSM S assay is recom kim call (orde r code 17096 ). Bita e note: patie nts being treat ed with [...] s. [facility] order code 54691 -Estr adiol , Ultra sensi tive LC/MS /MS demon strat es negli gible cross react ivity with fulve stran t. Not Available [facility] [address] [place], [address], 09/07/2024 11:57:10 09/07/19 25 09/07/2024 VITAM IN [...] /MS is recom kim d: order code 85713 (kerry ents >2yrs ). See Note 1 NO COLLE CTION DATE RECEI SARIAH. WE HAVE USED THE DATE THE SPECI MEN WAS RECEI SARIAH BY THIS LABOR ATORY THE COLLE CTION DATE. IF THIS IS INCOR RECT, BITA E CONTA CT CLIEN T SERVI CARLITA. PHONE JUVE R: [phone] Note 1 For addit ional infor bita monteiro refer to http: //[facility] yanick khoury.Que stDia gnost ics.c om/fa q/FAQ 199 (This link is being provi ded for infor kourtney han/ educa jairo l purpo ses only. ) Not Available [facility] [place] [address] [place], [address], 09/07/2024 11:57:11 12/20/19 24 12/22/2023 HPV HIGH RISK HPV high risk Negati [...] l cervi aman cytol ogy. Not Available [address], [address], 12/23/2023 09:22:35 12/20/19 24 12/23/2023 THINP REP TIS PAP clinical information: normal None given Not Available [facility] [address] [address] [place], [address], 12/23/2023 18:37:24 12/20/19 24 12/23/2023 THINP REP TIS PAP LMP: normal NONE GIVEN Not Available [facility] [address] [address] [place], [address], 12/23/2023 18:37:24 12/20/19 24 12/23/2023 THINP REP TIS PAP prev. Pap: normal NONE GIVEN Not Available [facility] [address] [address] [place], [address], 12/23/2023 18:37:24 12/20/19 24 12/23/2023 THINP REP TIS PAP prev. BX: normal NONE GIVEN Not Available [address], [address], 12/23/2023 18:37:24 12/20/19 24 12/23/2023 THINP REP TIS PAP source: normal Cervi x Not Available [address] [place], [address], 12/23/2023 18:37:24 12/20/19 24 12/23/2023 THINP REP TIS PAP statement of adequacy: normal Satis facto ry for evalu ation . Endoc ervic al/tr ansfo rmati on zone compo nent prese nt. Age and/o r menst rual statu s not provi ded Not Available [place] [address] [place], [address], 12/23/2023 18:37:24 12/20/19 24 12/23/2023 THINP REP TIS PAP interpretati on/result: normal Cytol ogy Resul ts: Negat suad for intra epith elial lesio n or aria gustafson . Not Available [place] [address] [address] [place], [address], 12/23/2023 18:37:24 12/20/19 24 12/23/2023 THINP REP TIS PAP comment: normal This Pap test has been evalu ated with compu ter fernando alex techn ology . Not Available [place] [address] [place], [address], 12/23/2023 18:37:24 12/20/19 24 12/23/2023 THINP REP TIS PAP cytotechnolo gist: normal BKA, CT( CP) CT scree sheila locat ion: [place] [address] [place] [place] [address] Not Available [place] [address] [place], [address], 12/23/2023 18:37:24 12/20/19 24 12/23/2023 THINP REP [...] jd and curre nt clini aman infor matale n. Not Available [place] [address] [address] [place], [address], 12/23/2023 18:37:24 01/06/20 24 01/12/2024 TISSU E PATHO LOGY clinical information Abnor mal uteri ne bleed ing Not Available [place] [address] [place], [address], 01/12/2024 16:09:00 01/06/20 24 01/12/2024 TISSU E PATHO LOGY pathologist Lucy fitzpatrick MD Board Certi fied in Anato ángel Patho logy and Clini aman Patho logy (elec troni c signa ture) Not Available [place] [address] [place], [address], 01/12/2024 16:09:00 01/06/20 24 01/12/2024 TISSU E PATHO LOGY A source Endom etriu m, biops y Not Available [place] [address] [place], [address], 01/12/2024 16:09:00 01/06/20 24 01/12/2024 TISSU E [...] [facility] [place] [address] [place] [address] [place], [place] [address] Labor atory Direc tor: DAVY Khan MD Not Available [facility] [address] [address] [place], [address], 01/12/2024 16:09:00 01/06/20 24 01/12/2024 TISSU E PATHO LOGY A diagnosis Mildl y disor dered proli ferat suad endom etriu m, admix ed with blood . Not Available [facility] [address] [address] [place], [address], 01/12/2024 16:09:00 01/06/20 24 01/12/2024 TISSU E PATHO LOGY A comment No evide nce of hyper plasi a or malig sj in the speci men submi tted. Clini aman corre latio n/fol low-u p is recom kim d. Not Available [facility] [place] [address] [place], [address], 01/12/2024 16:09:00 01/06/20 24 01/06/2024 pregn kemar test, urine HCG negati ve Not Available [facility] [address] [place], [address], 01/06/2024 16:06:16 09/06/19 25 09/07/2024 FSH FSH [...] : 23.0- 116.6 mIU/m L Not Available [facility] [address] [place], [address], 09/07/2024 12:35:31 01/06/20 24 01/06/2024 US, trans vagin al No observ ation record ed. Patricia [address], [facility], [place], [address], 01/10/2024 22:33:22 Result Notes None recorded. Procedures Surgical History Date Name Laterality Status Provider Name and Address Organization Details Recorded Time 4 Suture/Staple removal cancelled Brooke Shannon [place] [employer] IV 05/31/2024 12:01:19 4 Suture/Staple removal cancelled Aidee Yaoa [place] [employer] IV 04/28/2024 10:39:23 4 Endometrial Biopsy completed MACK GRAHAM DO [facility] [place], [address], [facility] [employer] [facility] IV 01/10/2024 20:26:59 4 Date of Last Pap Smear completed Latisha Shannon [place] [employer] IV 01/06/2024 15:25:56 Removal of Ovaries completed Missy Forrester [facility] IV 12/20/2023 12:15:14 Imaging Results None recorded. Procedure Notes None recorded. Medical Equipment None Reported. Allergies Allergen ID Allergen Name Allergen Category Reaction Reaction Severity Criticality Documentation Date Start Date Code Code System Note Provider Name and Address Organization Details Recorded Time 685819 Substance with sulfonami de structure and antibacte rial mechanism of action (substanc e) medicatio n Not available Not available Not available 12/20/2023 84543 0580 SNOMED Missy roberts, [employer] [facility] IV 4 12:15:13 Medications Name Sig Start Date Stop Date Status Note LastModified by Organization Details LastModified Time venlafaxine ER 75 mg capsule,ext ended release 24 hr TAKE 1 CAPSULE BY MOUTH EVERY DAY active Not Available Not Available No t Available doxycycline hyclate 100 mg capsule Take 1 capsule twice a day by oral route. 09/06 completed Not Available Not Available Not [...] Available Not Available fluconazole 150 mg tablet Take 1 tablet every day by oral route as directed. 05/04 completed Not Available Not Available Not [...] oxycodone-a cetaminophe n 5 mg-325 mg tablet Take 1 tablet every 6 hours by oral route as needed. 05/04 completed Not Available Not Available Not [...] Body mass index (BMI) Body weight Systolic And Diastolic Provider Name and Address Organization Details Last Updated DateTime 09/06/2024 175.26 cm 39.6 kg/m2 013075.19 g 122/80 mm[Hg] Latishabk Shannon [facility] [employer] IV 09/06/2024 12:27:26 Date Recorded Body height Body mass index (BMI) Body weight Body temperature Systolic And Diastolic Provider Name and Address Organization Details Last Updated DateTime 12/20/2023 175.26 cm 38.5 kg/m2 122298. 89 g 97.7 [degF] 128/76 mm[Hg] Missy Irvinbe [facility] [employer] IV 12:14:33 Date Recorded Body height Body mass index (BMI) Body weight Systolic And Diastolic Provider Name and Address Organization Details Last Updated DateTime 01/06/2024 175.26 cm 37.5 kg/m2 408371.18 g 130/78 mm[Hg] [facility] [employer] IV 01/06/2024 15:25:19 Date Recorded Body height Body mass index (BMI) Body weight Body temperature Systolic And Diastolic Provider Name and Address Organization Details Last Updated DateTime 03/28/2024 175.26 cm 37.9 kg/m2 568657. 8 g 97.3 [degF] 122/86 mm[Hg] [facility] [employer] [facility] IV 10:08:20 Date Recorded Body height Provider Name an d Address Organization Details Last Updated DateTime 05/04/2024 175.26 cm [facility] [employer] [facility] IV 05/04/2024 09:51:57 Date Recorded Body mass index (BMI) Body weight Body temperature Systolic And Diastolic Provider Name and Address Organization Details Last Updated DateTime 05/04/2024 39.6 kg/m2 152705.7 6 g 97.3 [degF] 120/78 mm[Hg] Estefania Vega [facility] [employer] IV 05/04/2024 09:58:45 Social History Question Answer Notes LastModified by Organizat ion Details LastModified Time Tobacco Smoking Status Current Every Day Smoker Missy Irvinbe [facility], [facility] 12/20/2023 12:15:14 How Many Years Have You Consumed Alcohol? 20 Information not available 12/20/2023 Are You Blind Or Do You Have Difficulty Seeing? No Information not available 12/20/2023 Are You Deaf [...] Smoke? 0.5 PPD Information not available 12/20/2023 How Many Years Have You Smoked Tobacco? 32 Information not available 12/20/2023 Sex: Unknown Functional Status Question Answer Note LastModified by Organizat ion Details LastModified Time Do you use any illicit or recreational drugs? Yes Information not available 12/20/2023 What is your level of alcohol consumption? Occasional Information not available 12/20/2023 Are you currently employed? Yes Information not available 12/20/2023 What is your exercise level? Occasional Information not available 12/20/2023 Mental Status None recorded. Family History Relationship Description Onset Age of this Age Resolved Age Notes LastModified by Organization Details LastModified Time Mother Hypercholest jo annia Not available 2023 12:15:14 Mother Hypertensive disorder Not available 2023 12:15:14 Mother Diabetes mellitus Not available 2023 12:15:14 Brother Hypercholest erolemia Not available 2023 12:15:14 Brother Hypertensive disorder Not available 2023 12:15:14 Brother Diabetes mellitus Not available 2023 12:15:14 Father Malignant neoplastic disease Not available 2023 12:15:14 Medical History Condition Response High Blood Pressure Y Diabetes Mellitus (non-insulin dependent ) Y Bipolar Disorder Y History of Abnormal Pap Y Fibroids Y Asthma Y Depression Y Seasonal allergies Y Gynecological History Statement/Question Response Flow Heavy [...] SNOMED-CT Code Diagnosis ICD10 Code Diagnosis Note [id number] MACK GRAHAM, [facility] [address] [place] [address] 12/20/2023 12:07:51 12/20/2023 14:50:50 Abnormal uterine bleeding 0954115380 9100 N93.9 RTO for US 5 days of heavy bleeding, needing to change pad [id number] le in rehab was [place]iz ed [place] heavy bleedingpr eviously tried COCswas informed had fibroids and endometrio sish/o unilateral salpingo-o ophorectom y via ex-lap at 16 yo for what pt believes was a dermoid cyst Screening for malignant neoplasm of cervix 576879753 Z12.4 Gynecologi c examination 93735276 Z01.419 38 y.o. here for annual exam. [...] annual or PRN Surveillan ce of contraception 554534036 Z30.40 Depression screening 171 376607 Z13.31 History of substance abuse 687737620 F19.21 h/o crack cocaine usejust out of rehab for 2 monthshas been tested for HIV and hepatitis; negative [id number] MACK SANTOS, DO [facility] h [address] [place] [address] 01/06/2024 13:55:43 01/11/2024 15:34:15 Abnormal uterine bleeding 5347694054 9100 N93.9 38 y.o. with AUB-L. - [...] terectomy consent signed Intramural leiomyoma of uterus 31360533 D25.1 [id number] MACK GRAHAM, [facility] h [address] [place] [address] 03/28/2024 09:56:10 03/28/2024 10:29:42 Preprocedural examination done 6645553857 64306 Z01.818 38 yo w/ AUB-L here for pre-op evaluation prior to hysterecto my -Pap w/ HPV: nilm, -HPV-EMB: benign-Dis cussed pre-op and post-op expectatio ns-Plan for OnQ pain pump-Does not require pre-op medical clearance- Plan for RATLHBS w/ cysto @ [facility] Uterine leiomyoma 053604 05 D25.9 Additional diagnosis detail: Uterine leiomyoma, unspecifie d location Abnormal u terine bleeding 2599620048 9100 N93.9 38 y.o. with AUB-L. - [...] or mini-lap due to size of uterus. [id number] MACK GRAHAM DO [facility] h [address] [place] [address] 05/04/2024 09:50:12 05/04/2024 10:58:44 Postoperative visit 128292396 Z09 38 yo s/p TAHBS here for 2w POV Had surgical site infection, seen at [facility] and given abx. Discussed postoperat suad pathology with patient. Reviewed Surgical findings. Patient instructed to maintain strict pelvic rest and no heavy lifting greater than 20 lbs. She was instructed to return for a second postoperat suad visit in 4 weeks to evaluated the vaginal cuff. All of her questions were answered. [id number] MACK GRAHAM DO [facility] [address] [place] [address] 09/06/2024 12:21:04 09/06/2024 13:41:11 Menopausal symptom 60616900 N95.1 History of hysterectomy 838322531 Z90.710 vaginal cuff well healed Health Concerns Section Related Observation LastModified by Organization Detai ls LastModified Time None Recorded Concern Status LastModified by Organization Details LastModified Time None Recorded Advance Directives Directive None Recorded Payers Insurance Date Sequence Insurance Name Policy Number Policy Jacksno Covered Member ID Jackson Member ID Guarantor Name 05/04/2024 1 [place] Kristi Chicas [id number] Kristi Chicas 01/04/2025 1 [facility] - DOS ON OR AFTER 21 (MEDICAID REPLACEMENT - HMO) Kristi Chicas [id number] Kristi Chicas Notes Date Note Type Note Provider Name and Address Organization Details Recorded Time 12/20/2023 text/html Kristi is here today to discuss surgery.She would like more information of having a hysterectomyHer periods are very irregular and painfulHer flow is very heavyShe complains of pain in her abdomen and lower back MACK GRAHAM DO [address] [facility], [place], [address], [facility] - [employer] IV 12/20/2023 14:20:43 01/06/2024 text/html Kristi 38 y/o h ere for f/u on abnormal vaginal bleeding, LMP 12/20/2023, periods are heavy and irregular, Last pap 12/20/2023, History of fibroids / endometriosis . U/S done today MACK GRAHAM DO [address] [facility], [place], [address], [facility] IV 01/10/2024 20:27:52 03/28/2024 text/html Pre-Op OBGYN HPIReported bypatient.Surgery to be Performed:OCTAVIAErin Diagnosis:Uterine Fibroids Location:[facility] on 04/18/24 Anesthesia hx:Anesthesia Proposed: general Kristi presents today for pre op visit MACK GRAHAM DO [facility], [place], [address], [facility] IV 03/28/2024 10:25:52 05/04/2024 text/html Post-OpReported bypatient.Onset/Timin g:date of surgery: (04/18/2024) Quality:procedure: (LAPAROSCOPIC CONVERT TO TOTAL ABDOMINAL HYSTERECTOMY,BILATERA L SALPINGECTOMY) Associated Symptoms:no fatigue; normal appetite; normal bowel function; no constipation; no nausea; no emesis; no fever; no bleeding; no lower extremity edema/pain; no dysuria/urinary symptoms;incision not healing well;pain not improving;pain MACK GRAHAM DO [facility], [place], [address], [facility] IV 05/04/2024 10:56:16 09/06/2024 text/html Kristi 39 y/o h ere with c/o hormone issues, she had Hysterectomy 04/18/2024, c/o acne, mood swings, hot flashes , MACK GRAHAM DO [address] [place] [address], [address], [facility] IV 09/06/2024 12:50:18 OBGyn Episode No OBEpisode recorded.
--- OUTSIDE RECORDS SUMMARY | 2025-03-07 14:37 | XMS_ITS | Clinical Summary ---
Author Organization [facility] Address [address] [place] [address] Care Team Providers Care Blood Bank Custodian Name Role Phone Treva Martell NP Primary Care Provider [phone] Allergies Active Allergy Reactions Criticality Noted Date [...] = 0.6 oz pur e alcohol) [facility] Utilities Answer Date Recorded In the past 12 months has [employer], [place], oil, or water [employer] threatened to shut off services in your [...] often do you attend chur ch or muslim services? Never 04/19/2024 Do you belong to any clubs o r organizations such as muslim groups, unions, fraternal or athletic groups, or [...] any time in the past 12 m [facility], were you homeless or living in a penitentiary (including now)? No 04/19/2024 Personal Safety Answer Date Recorded Have you ever been in or are you currently in a harmful physical or emotional relationship or is someone making you feel afraid or unsafe? 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 [employer] Gender Identity Not on file Sexual Orientation [...] 5 season) 2024 12/04/2020 Influenza Vaccine (#1) 2025 06/20/2020 DTaP/Tdap/Td Vaccine (2 - Td or Tdap) 07/27/2033 07/27/2023 Hepatitis C Screening Completed 04/18/2024 HPV Vaccines Aged Out No longer eligi ble based on patient's age to complete this topic Medical Devices Implanted Type Area Collections Director Device Identifier Shelf Expiration Date Model / [...] - 04/18/2024 2:58 PM CDT Bill to [facility] 1520 Patient is employed by/enrolled at:->[employer] [employer] us Gus Regan MD LAB MICROBIOLOGY - GENERAL OR DERABLES Edited Result - Final [facility] [address] [facility] Department [place] [address] from Last 3 Months or Most Recently Relevant to Health Maintenance Insurance [facility] MEDICAID [facility] Advance Directives For more information, please contact: [phone] * Full Code (Latest Code Status on File) Date Activated Date Inactivated Comments 04/18/2024 3:12 PM 04/20/2024 2:43 PM Care Teams Blood Bank Custodian Relationship Specialty Start Date End Date Treva Martell NP [address] [place] [address] PCP - General Family Medicine 04/07/24
== END 2025-03-07 14:28 | disposition home or self-care (01) ==
LOC: ANHAUDIO 14:27
PROVIDERS: PCP Nurse Practitioner Family; Visit Provider Otolaryngology
DX: H90.3 Sensorineural hearing loss, bilateral (principal); H93.11 Tinnitus, right ear; H73.892 Other specified disorders of tympanic membrane, left ear; H74.09 Tympanosclerosis, unspecified ear; H74.8X2 Other specified disorders of left middle ear and mastoid; H65.499 Other chronic nonsuppurative otitis media, unspecified ear; H69.90 Unspecified Eustachian tube disorder, unspecified ear; L72.3 Sebaceous cyst; L08.9 Local infection of the skin and subcutaneous tissue, unspecified; Z86.69 Personal history of other diseases of the nervous system and sense organs; Z82.2 Family history of deafness and hearing loss
CPT/HCPCS: 92557; 92567

== ENCOUNTER 2025-03-20 14:05 | Outpatient (CLI) | payer OTHER, SELFPAY ==
--- NOTE | ~2025-03-20 | XR_ITS ---
[id number] 03/20/2025 14:31 Indication: Neck pain Procedure: 3 view cervical spine Comparison: 01/17/2025 Findings: There is straightening of cervical lordosis. There is disc narrowing and endplate degenerat suad change at C4-5. There is prominent ventral osteophytes at this level. There is multilevel uncinat e and facet hypertrophy. There is mild levocurvature of the cervical spine. No prevertebral soft tiss ue abnormality. Impression: 1: Moderate cervical spondylosis. Reviewed, dictated and finalized at location A. Impression: 1: Moderate cervical spondylosis.
--- OUTSIDE RECORDS SUMMARY | 2025-03-20 14:08 | XMS_ITS | Clinical Summary ---
Author Organization [facility] Address [facility] [place] [address] Care Team Providers Care Director Of Enterprise Applications Name Role Phone Stacie Ferreira MD Primary Care Provider [phone] Allergies Active Allergy Reactions Criticality Noted Date [...] Years) (1 of 2 - PCV) 2003 HPV Vaccines (1 - 3-dose SCD M series) 2011 COVID-19 Vaccine (2 - 2023-2 5 season) 2024 12/04/2020 Mammogram Screening 2024 Cervical Cancer Screening Pa p with HPV Testing (Age 30 to 64) Every 5 Years 09/22/2027 09/22/2022 Cervical Cancer Screening with HPV 09/22/2027 Meningococcal B Vaccine Aged Out No l [...] PAPILLOMAVIRUS, HIGH-RISK TYPES Routine 09/22/2022 8:00 AM MIDDLE STITCHER from Last 3 Months or Most Recently Relevant to Health Maintenance Results * HUMAN PAPILLOMAVIRUS, HIGH-RISK TYPES (09/22/2022 8:00 AM MIDDLE STITCHER) SPEC DESCRIPTION CERVIX 09/24/19 2:53 PM MIDDLE STITCHER [facility] HPV DNA HIGH RISK NEGATIVE NEGATIVE 09/25/2022 12:27 PM MIDDLE STITCHER [facility] Comment:SEE CYTOLOGY REPORT 09/22/2022 8:00 AM MIDDLE STITCHER Provider Non-Staff PATHOLOGY/CYTOLOGY ORDERABLES Final Result [facility] [address] [place] [address], from Last 3 Months or Most Recently Relevant to Health Maintenance Insurance [facility] Care Teams Director Of Enterprise Applications Relationship Specialty Start Date End Date Stacie Ferreira MD [facility] [address] [place] [id number] PCP - General FAMILY PRACTICE 12/24/20
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
--- OUTSIDE RECORDS SUMMARY | 2025-03-20 14:08 | XMS_ITS | Clinical Summary ---
Author Organization [facility] Address [address] [place] [address] Care Team Providers Care Hotel Yardperson Name Role Phone Treva Martell NP Primary Care Provider [phone] Allergies Active Allergy Reactions Criticality Noted Date [...] COVID-19 07/21/2021 Lesion of oral mucosa 05/13/2015 Encounters Date Type Department Care Team Description 03/15/2025 9:46 AM CDT - 03/15/2025 11:59 PM CDT Hospital Encounter [facility] [address] [place] [address] Encounter for disability determination Discharge Disposition: Discharge to home or self care from Last 3 Months Surgical History Surgery Date Site/Laterality Comments HAND [...] drink = 0.6 oz pur e alcohol) [facility] Utilities Answer Date Recorded In the past 12 months has [employer], [employer], oil, or water [employer] threatened to shut off services in your [...] often do you attend chur ch or temple services? Never 04/19/2024 Do you belong to any clubs o r organizations such as lutheran groups, unions, fraternal or athletic groups, or [...] any time in the past 12 m [facility], were you homeless or living in a prison (including now)? No 04/19/2024 Personal Safety Answer Date Recorded Have you ever been in or are you currently in a harmful physical or emotional relationship or is someone making you feel afraid or unsafe? 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 MF: NEHA Report ID: [id number] Reading Location: [id number] Procedure Note Kings Chandler MD - 03/16/2025 [...] Kings Chandler M.D. MF: NEHA Report ID: [id number] Reading Location: [id number] Ryder Burton MD IMG XR PROCEDURES Final [...] Kings Chandler M.D. MF: NEHA Report ID: [id number] Reading Location: [id number] Procedure Note Kings Chandler MD - 03/16/2025 [...] Kings Chandler M.D. MF: NEHA Report ID: [id number] Reading Location: [id number] Ryder Burton MD IM XR PROCEDURES Final Result * Hepatitis C [...] PM CDT 04/18/2024 2:26 PM CDT Nadia RAYA - 04/18/2024 2:58 PM CDT Bill to [facility] - 1520 Patient is employed by/enrolled at:->[facility] Gus Regan MD LAB MICROBIOLOGY - GENERAL OR DERABLES Edited Result - Final BEATRIZ RAYA [address] [facility] Department [place] [address] from Last 3 Months or Most Recently Relevant to Health Maintenance Insurance [facility] MEDICAID [facility] Advance Directives For more information, please contact: [phone] * Full Code (Latest Code Status on File) Date Activated Date Inactivated Comments 04/18/2024 3:12 PM 04/20/2024 2:43 PM Care Teams Hotel Yardperson Relationship Specialty Start Date End Date Treva Martell NP [address] [place] [address] PCP - General Family Medicine 04/07/24
[2025-03-20 14:57] LABS: Alanine Aminotransferase 17 U/L (6-35); Albumin Level 4.0 g/dL (3.5-5.1); Alkaline Phosphatase 62 U/L (38-126); Anion Gap 2 mmol/L (4-12); Aspartate Amino Transferase 22 U/L (14-36); Bilirubin,Total 0.4 mg/dL (0.2-1.3); Blood Urea Nitrogen 10 mg/dL (7-17); Calcium 8.8 mg/dL (8.4-10.2); Carbon Dioxide 26 mmol/L (22-30); Chloride 112 mmol/L (98-107); Estimated Glomerular Filt Rate > 60; Glucose 94 mg/dL (65-110); Osmolality Calculated 289 mOsm/kg (285-295); Potassium 5.1 mmol/L (3.4-5.0); Sodium 140 mmol/L (137-145); Total Protein 6.7 g/dL (6.3-8.2)
[2025-03-20 15:28] LABS: Thyroid Stimulating Hormone Reflex 1.570 uIU/mL (0.465-4.68)
[2025-03-22 09:08] LABS: FSH 2.7 mIU/mL (.)
[2025-03-25 22:07] LABS: Estradiol, Sensitive 64.7 pg/mL (.)
== END 2025-03-20 14:06 | disposition home or self-care (01) ==
PROVIDERS: PCP Nurse Practitioner Family; Visit Provider Nurse Practitioner Family
DX: R61 Generalized hyperhidrosis (principal); S19.9XXA Unspecified injury of neck, initial encounter; M43.02 Spondylolysis, cervical region
CPT/HCPCS: 36415; 72040; 80053; 82166; 82670; 83001; 84443

== ENCOUNTER 2025-03-30 09:22 | Outpatient (CLI) | payer OTHER, SELFPAY ==
--- OUTSIDE RECORDS SUMMARY | 2025-03-30 09:27 | XMS_ITS | Referral Summary ---
Author Organization [facility] Address [address] [place] [address] Care Team Providers Care Nail Specialist Name Role Phone Treva Martell NP Primary Care Provider Encounters Date Type Department Care Team Description 03/15/2025 9:46 AM CDT - 03/15/2025 11:59 PM CDT Hospital Encounter [facility] [address] [place] [address] Encounter for disability determination Discharge Disposition: Discharge [...] drink = 0.6 oz pur e alcohol) [facility] Utilities Answer Date Recorded In the past 12 months has [employer], [employer], oil, or water [employer] threatened to shut off services in your [...] often do you attend chur ch or moravian services? 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 MF: NEHA Report ID: [id number] Reading Location: [id number] Procedure Note Kings Chandler MD - 03/16/2025 [...] Kings Chandler M.D. MF: NEHA Report ID: [id number] Reading Location: [id number] Ryder Burton MD IMG XR PROCEDURES Final [...] Kings Chandler M.D. MF: NEHA Report ID: [id number] Reading Location: [id number] Procedure Note Kings Chandler MD - 03/16/2025 [...] Kings Chandler M.D. MF: NEHA Report ID: [id number] Reading Location: [place] [address] Ryder Burton MD IMG XR PROCEDURES Final [...] - 04/18/2024 2:58 PM CDT Bill to [facility] - 1520 Patient is employed by/enrolled at:->[facility] Gus Regan MD LAB MICROBIOLOGY - GENERAL OR DERABLES Edited Result - Final BEATRIZ [address] [facility] Department of Laboratories [place], [place] [id number] from Last 3 Months or Most Recently Relevant to Health Maintenance Insurance [facility] MEDICAID [facility] Advance Directives For more information, please contact: [phone] * Full Code (Latest Code Status on File) Date Activated Date Inactivated Comments 04/18/2024 3:12 PM 04/20/2024 2:43 PM Care Teams Nail Specialist Relationship Specialty Start Date End Date Treva Martell NP [address] [place] [address] PCP - General Family Medicine 04/07/24
--- OUTSIDE RECORDS SUMMARY | 2025-03-30 09:27 | XMS_ITS | Clinical Summary ---
Author Organization [facility] Address [address] [place] [address] Care Team Providers Care Director Pediatric Name Role Phone Treva Martell NP Primary Care Provider [phone] Allergies Active Allergy Reactions Criticality Noted Date [...] - 03/15/2025 11:59 PM CDT Hospital Encounter [facility] [address] [place] [address] Encounter for disability determination Discharge Disposition: Discharge to home or self care from Last 3 Months Surgical History Surgery Date Site/Laterality Comments HAND SURGERY Left EXPLORATORY LAPAROTOMY 23 years ago. removed a fallopian tube and ovary, unsure of which one. Medical History Medical History Date Comments Asthma COPD (chronic obstructive pulmonary disease) Hypertension Prediabetes Social History Tobacco Use Types Packs/Day Years Used Date Smoking Tobacco: Every Day Cigarettes Smokeless Tobacco: Never Tobacco Cessation:Ready to Q uit: Not Asked; Counseling Given: Not Answered Alcohol Use Standard Drinks/Week Comments No 0 (1 standard drink = 0.6 oz pur e alcohol) [facility] Utilities Answer Date Recorded In the past 12 months has [employer], [employer], oil, or water [employer] threatened to shut off services in your [...] often do you attend chur ch or hindu services? 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 MF: NEHA Report ID: [id number] Reading Location: [id number] Procedure Note Kings Chandler MD - 03/16/2025 [...] Kings Chandler M.D. MF: NEHA Report ID: [id number] Reading Location: [place] [address] Ryder Burton MD IMG XR PROCEDURES Final [...] Kings Chandler M.D. MF: NEHA Report ID: [id number] Reading Location: [id number] Procedure Note Kings Chandler MD - 03/16/2025 [...] Kings Chandler M.D. MF: NEHA Report ID: [id number] Reading Location: [id number] Ryder Burton MD IMG XR PROCEDURES Final [...] - 04/18/2024 2:58 PM CDT Bill to [facility] - 1520 Patient is employed by/enrolled at:->[facility] us Gus Regan MD LAB MICROBIOLOGY - GENERAL OR DERABLES Edited Result - Final BEATRIZ [address] [facility] Department [place] [address] from Last 3 Months or Most Recently Relevant to Health Maintenance Insurance [facility] MEDICAID [facility] Advance Directives For more information, please contact: [phone] * Full Code (Latest Code Status on File) Date Activated Date Inactivated Comments 04/18/2024 3:12 PM 04/20/2024 2:43 PM Care Teams Director Pediatric Relationship Specialty Start Date End Date Treva Martell NP [address] [place] [address] PCP - General Family Medicine 04/07/24
--- NOTE | 2025-03-30 09:57 | ECG_ITS ---
Test Date: 2025-03-30 10:03:17 Measurements Intervals [place] Rate: 74 P: 48 TN: 148 QRS: 47 QRSD: 97 T: 40 QT: 405 QTc: 450 Interpretive Statements SINUS RHYTHM MINIMAL Q WAVES- INF/LAT LEADS BASELINE ARTIFACT- II, III, AVL, AVF, V5-V6 BORDERLINE ECG Compared to ECG 09/22/2024 12:32:25 HEART RATE HAS INCREASED Electronically Signed On 03-30-2025 10:11:42 CDT by Ezequiel Abdi D.O.
[2025-03-30 10:03] LABS: Hematocrit 46.3 % (35.0-49.0); Hemoglobin 15.6 g/dL (12.0-15.0); Immature Granulocyte Percent A 0.3 % (0.0-0.0); Lymphocytes Absolute Auto 2.48 K/mm3 (1.10-4.50); Mean Corpuscular HGB Conc 33.7 g/dL (32-36); Mean Corpuscular Hemoglobin 29.9 pg (27.0-31.0); Mean Corpuscular Volume 88.9 fL (78.0-102.0); Nucleated Red Blood Cells Absolute Auto 0.00 K/mm3 (0.00-0.00); Nucleated Red Blood Cells Perc 0.0 % (0-0.0); Platelet Count Result 236 K/mm3 (150-420); Red Blood Count 5.21 M/mm3 (4.20-5.40); White Blood Count 9.9 K/mm3 (4.8-10.8)
[2025-03-30 10:38] LABS: Potassium 4.7 mmol/L (3.4-5.0)
== END 2025-03-30 09:23 | disposition home or self-care (01) ==
LOC: CHSLAB 09:24
PROVIDERS: PCP Nurse Practitioner Family; Visit Provider Nurse Practitioner Family
DX: E87.5 Hyperkalemia (principal); R61 Generalized hyperhidrosis; I10 Essential (primary) hypertension
CPT/HCPCS: 36415; 84132; 85025; 93005

== ENCOUNTER 2025-04-05 02:58 | Day surgery (SDC) | payer OTHER, SELFPAY ==
[2025-03-22 08:56] VITALS: BMI 39.6
--- OUTSIDE RECORDS SUMMARY | 2025-04-05 03:00 | XMS_ITS | Clinical Summary ---
Author Organization [facility] Address [facility] [place] [address] Care Team Providers Care Production Assembly Operator Name Role Phone Stacie Ferreira MD Primary Care Provider [phone] Allergies Active Allergy Reactions Criticality Noted Date [...] PAPILLOMAVIRUS, HIGH-RISK TYPES Routine 09/22/2022 8:00 AM TRANSFORMATION MANAGER from Last 3 Months or Most Recently Relevant to Health Maintenance Results * HUMAN PAPILLOMAVIRUS, HIGH-RISK TYPES (09/22/2022 8:00 AM TRANSFORMATION MANAGER) SPEC DESCRIPTION CERVIX 09/24/19 2:53 PM TRANSFORMATION MANAGER [facility] HPV DNA HIGH RISK NEGATIVE NEGATIVE 09/25/2022 12:27 PM TRANSFORMATION MANAGER [facility] Comment:SEE CYTOLOGY REPORT 09/22/2022 8:00 AM TRANSFORMATION MANAGER Provider Non-Staff PATHOLOGY/CYTOLOGY ORDERABLES Final Result [facility] [address] [place] [place] [address], from Last 3 Months or Most Recently Relevant to Health Maintenance Insurance [employer]ODESHA PARROTT Care Teams Production Assembly Operator Relationship Specialty Start Date End Date Stacie Ferreira MD [facility] [address] [place] [address] PCP - General FAMILY PRACTICE 12/24/20
--- OUTSIDE RECORDS SUMMARY | 2025-04-05 03:00 | XMS_ITS | Clinical Summary ---
Author Organization [facility] Address [address] [place] [address] Care Team Providers Care Stove Bottom Worker Name Role Phone Treva Martell NP Primary Care Provider [phone] Allergies Active Allergy Reactions Criticality Noted Date [...] - 03/15/2025 11:59 PM CDT Hospital Encounter [facility] [address] [place] [address] Encounter for disability determination Discharge Disposition: Discharge [...] drink = 0.6 oz pur e alcohol) [facility] Utilities Answer Date Recorded In the past 12 months has [employer], [employer], oil, or water [employer] threatened to shut off services in your [...] often do you attend chur ch or synagogue services? Never 04/19/2024 Do you belong to any clubs o r organizations such as mormonism groups, unions, fraternal or athletic groups, or [...] any time in the past 12 m [facility], were you homeless or living in a intermediate (including now)? No 04/19/2024 Personal Safety Answer Date Recorded Have you ever been in or are you currently in a harmful physical or emotional relationship or is someone making you feel afraid or unsafe? 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 MF: NEHA Report ID: [id number] Reading Location: [id number] Procedure Note Kings Chandler MD - 03/16/2025 [...] Kings Chandler M.D. MF: NEHA Report ID: [id number] Reading Location: [place] [address] Ryder Burton MD IMG XR PROCEDURES Final [...] Kings Chandler M.D. MF: NEHA Report ID: [id number] Reading Location: [id number] Procedure Note Kings Chandler MD - 03/16/2025 [...] Kings Chandler M.D. MF: NEHA Report ID: [id number] Reading Location: [id number] Ryder Burton MD IMG XR PROCEDURES Final [...] - 04/18/2024 2:58 PM CDT Bill to [facility] - 1520 Patient is employed by/enrolled at:->[facility] us Gus Regan MD LAB MICROBIOLOGY - GENERAL OR DERABLES Edited Result - Final BEATRIZ [address] [facility] Department [place] [address] from Last 3 Months or Most Recently Relevant to Health Maintenance Insurance [facility] MEDICAID [facility] Advance Directives For more information, please contact: [phone] * Full Code (Latest Code Status on File) Date Activated Date Inactivated Comments 04/18/2024 3:12 PM 04/20/2024 2:43 PM Care Teams Stove Bottom Worker Relationship Specialty Start Date End Date Treva Martell NP [address] [place] [address] PCP - General Family Medicine 04/07/24
[2025-04-05 10:31] VITALS: BP 140/102; PULSE 81; RESP 19; TEMP 36.9; O2SAT 100
[2025-04-05] MEDS: LACTATED RINGERS 1,000 ML 150 ML IV CONT (10:43)
--- NOTE | 2025-04-05 11:03 | WPDANESEPPF ---
Anes - Initial Pre Proc Eval Procedure: Operation Date: 04/05/25 11:30 Proposed Procedures p Esophagogastroduodenoscopy & Colonoscopy - Rahul Ramirez MD Date/Time: 04/05/25 11:03 Surgeon: Rahul Ramirez MD Pre Op Diagnosis: Nausea, Unspecified abdominal pain Patient Data Age: 39 Gender: F Height: 1.75 m Weight: 122.4 kg Last Vital Signs Temp 36.9 C 04/05/25 10:31 Pulse 81 04/05/25 10:31 Resp 19 04/05/25 10:31 BP 140/102 H 04/05/25 10:31 Pulse Ox 100 04/05/25 10:31 O2 Del Method Room Air 04/05/25 10:31 Allergies Allergy/AdvReac Type Severity Reaction Status Date / Time Sulfa (Sulfonamide Allergy Mild Hives Verified 04/05/25 10:29 Antibiotics) Home Medications ?Medication ?Instructions ?Recorded ?Confirmed ?Type venlafaxine 75 mg capsule,extended 75 mg PO DAILY 08/02/19 04/05/25 History release 24 hr (Effexor XR) clonazepam 1 mg tablet 1 mg PO DIRECTED 06/24/24 04/05/25 History budesonide-formoterol HFA 160 See Rx Instructions .Route 11/30/24 04/05/25 Rx mcg-4.5 mcg/actuation aerosol .COMPLEX #10.2 ea inhaler (Symbicort) hydrochlorothiazide 12.5 mg tablet 25 mg PO DAILY 01/07/25 04/05/25 History linaclotide 145 mcg capsule 145 mcg PO DAILY 01/25/25 04/05/25 History (Linzess) lisinopril 40 mg tablet See Rx Instructions .Route 02/02/25 04/05/25 Rx .COMPLEX #30 tabs albuterol sulfate 90 mcg/actuation See Rx Instructions .Route 03/16/25 04/05/25 Rx aerosol inhaler .COMPLEX #8.5 ea meloxicam 7.5 mg tablet 15 mg (2 x 7.5 mg) PO DAILY PRN 03/20/25 03/22/25 Rx pain #60 tabs acyclovir 400 mg tablet 400 mg PO BID 3 months #180 tabs 03/21/25 04/05/25 Rx amlodipine 10 mg tablet 10 mg PO DAILY #90 tabs 03/21/25 04/05/25 Rx cyclobenzaprine 7.5 mg tablet See Rx Instructions .Route 03/26/25 04/05/25 Rx .COMPLEX #60 tabs gabapentin 100 mg capsule 100 mg PO QHS #90 caps 04/04/25 04/05/25 Rx Patient hx anesthesia problems: none Family hx anesthesia problems: none Results Review: All pre-operative results and documents have been reviewed as part of the pre-operative evaluation. [facility] Past Medical History Medical History Family history of pancreatic cancer Family history of colon cancer in father Nicotine dependence High cholesterol HTN (hypertension) Bronchitis Asthma Surgical History Surgical History History of placement of ear tubes H/O: hysterectomy 03/2024 History of hand surgery Left March 2020 H/O oophorectomy Family History Family History Father Pancreatic cancer Mother Hypertension Diabetes mellitus Social History Social History Smoking packs per day: 0.5 Smoking cigarettes per day: 10.0 Years smoked: 20 Smoking pack-years: 10.00 Smoking status: Current every day smoker Tobacco type: cigarettes Second hand tobacco smoke exposure: No Smoking end date: 05/30/20 Alcohol intake: never Substance use: current Substance use type: marijuana Last use: 03/01/2020 Living arrangements: with family Additional living arrangements comments: [phone] Gender identity (if verbalized by the patient): Female Spiritual care concerns: No Anes - Eval Final PreProcedure Day of Procedure 04/05/25 11:03 Patient weight: morbidly obese Heart: regular rate and rhythm Lungs: decreased breath sounds Airway: Mallampati scale class II Neurological: alert and oriented Last oral intake: >/= 8 hours ASA classification: III Emergent: no Anesthetic plan: proceed Anesthesia type and monitoring: general GIVS and standard monitoring Results Review: All pre-operative results and documents have been reviewed as part of the pre-operative evaluation. Informed Consent: The patient's anesthetic plan and its attendant risks and benefits were discussed with the patient/family/POA. Questions were solicited and answers provided to the satisfaction of the patient/family/POA.
--- NOTE | 2025-04-05 11:22 | PM.HPGS ---
History of Present Illness History of Present Illness Consent: Risks, benefits, and alternatives have been discussed and questions answered. Patient agrees to proceed with procedure. Chief complaint: Nausea, Unspecified abdominal pain Narrative: Kristi Chicas is a 39 year old female here for first egd and colonoscopy, former drug user. History of constipation and intermittent abdominal pain. Patient says that father had pancreatic and not colon cancer. Review of Systems Review of Systems: All systems reviewed & are unremarkable except as noted in HPI and below PMFSH Past Medical History Medical History Family history of pancreatic cancer Family history of colon cancer in father Nicotine dependence High cholesterol HTN (hypertension) Bronchitis Asthma Surgical History Surgical History History of placement of ear tubes H/O: hysterectomy 03/2024 History of hand surgery Left March 2020 H/O oophorectomy Family History Family History Father Pancreatic cancer Mother Hypertension Diabetes mellitus Social History Social History Smoking packs per day: 0.5 Smoking cigarettes per day: 10.0 Years smoked: 20 Smoking pack-years: 10.00 Smoking status: Current every day smoker Tobacco type: cigarettes Second hand tobacco smoke exposure: No Smoking end date: 05/30/20 Alcohol intake: never Substance use: current Substance use type: marijuana Last use: 03/01/2020 Living arrangements: with family Additional living arrangements comments: [phone] Gender identity (if verbalized by the patient): Female Spiritual care concerns: No Meds Home Medications and Allergies Home Medications ?Medication ?Instructions ?Recorded ?Confirmed ?Type venlafaxine 75 mg capsule,extended 75 mg PO DAILY 08/02/19 04/05/25 History release 24 hr (Effexor XR) clonazepam 1 mg tablet 1 mg PO DIRECTED 06/24/24 04/05/25 History budesonide-formoterol HFA 160 See Rx Instructions .Route 11/30/24 04/05/25 Rx mcg-4.5 mcg/actuation aerosol .COMPLEX #10.2 ea inhaler (Symbicort) hydrochlorothiazide 12.5 mg tablet 25 mg PO DAILY 01/07/25 04/05/25 History linaclotide 145 mcg capsule 145 mcg PO DAILY 01/25/25 04/05/25 History (Linzess) lisinopril 40 mg tablet See Rx Instructions .Route 02/02/25 04/05/25 Rx .COMPLEX #30 tabs albuterol sulfate 90 mcg/actuation See Rx Instructions .Route 03/16/25 04/05/25 Rx aerosol inhaler .COMPLEX #8.5 ea meloxicam 7.5 mg tablet 15 mg (2 x 7.5 mg) PO DAILY PRN 03/20/25 03/22/25 Rx pain #60 tabs acyclovir 400 mg tablet 400 mg PO BID 3 months #180 tabs 03/21/25 04/05/25 Rx amlodipine 10 mg tablet 10 mg PO DAILY #90 tabs 03/21/25 04/05/25 Rx cyclobenzaprine 7.5 mg tablet See Rx Instructions .Route 03/26/25 04/05/25 Rx .COMPLEX #60 tabs gabapentin 100 mg capsule 100 mg PO QHS #90 caps 04/04/25 04/05/25 Rx Allergies Allergy/AdvReac Type Severity Reaction Status Date / Time Sulfa (Sulfonamide Allergy Mild Hives Verified 04/05/25 10:29 Antibiotics) Vital Signs Vital Signs - 24 hr 04/05/25 10:31 Temperature 98.4 F Pulse Rate 81 Respiratory Rate 19 Blood Pressure 140/102 H Pulse Oximetry 100 Oxygen Delivery Room Air Exam Const: General: comfortable and no acute distress HENMT: Face/Nose/Sinus: Normal nares present Eyes: General: appearance normal, both eyes and all related structures Neck: Neck: no JVD Resp: Auscultation: clear to auscultation bilaterally Cardio: Rate: regular rate Rhythm: regular rhythm GI: Inspection: non-distended GI Palp: Yes Soft to palpation Skin: General skin exam: normal color Neuro: Speech: normal speech Extrem: General: normal to inspection Psych: Mental Status: mental status grossly normal Assessment and Plan Assessment and plan (1) Chronic constipation: Code(s): K59.09 - Other constipation Status: Acute Assessment and Plan: colonoscopy (2) Abdominal pain: Code(s): R10.9 - Unspecified abdominal pain Status: Acute Assessment and Plan: egd
--- NOTE | 2025-04-05 11:34 | SUR.OPER ---
EGD [id number]. Colonoscopy start time 1136.
--- NOTE | 2025-04-05 11:40 | S_PTH ---
PATIENT: Kristi Chicas LOC: [facility]#:[id number] AGE/SX: 39/F ROOM: RE04/05/[address]: Rahul Ramirez MD : 1985 BED: DIS: 04/05/2025 SPEC #: [id number] RECD: 04/05/25 12:13 STATUS: DEANDRE REQ #: [id number] ADY: 04/05/25 11:[address]: Rahul Ramirez DEPT: [facility] Surgical RECD BY: Matilde Escamilla ENTERED: 04/05/25 12:13 SP TYPE: Surgical OTHR DR: Treva Martell APRN Tissues: A - Small Bowel Bx B - Gastric Biopsy Procedures: Hematoxylin and Eosin Stain Gross and Microscopic Level 4
[2025-04-05 11:47] VITALS: BP 111/76; PULSE 78; RESP 19; O2SAT 97
[2025-04-05 11:57] VITALS: BP 132/94; PULSE 68; RESP 19; O2SAT 97
[2025-04-05 12:07] VITALS: BP 120/87; PULSE 64; RESP 19; O2SAT 99
== END 2025-04-05 12:15 | disposition home or self-care (01) ==
PROVIDERS: PCP Nurse Practitioner Family; Referring Provider Nurse Practitioner Family; Visit Provider Internal Medicine Gastroenterology
PROC: 0DJ08ZZ Inspection of Upper Intestinal Tract, Via Natural or Artificial Opening Endoscopic (ICD-10-PCS; CPT 45378; principal; 2025-04-05 11:30)
DX: K64.8 Other hemorrhoids (principal); K21.9 Gastro-esophageal reflux disease without esophagitis; I10 Essential (primary) hypertension; E78.00 Pure hypercholesterolemia, unspecified; J45.909 Unspecified asthma, uncomplicated; F17.210 Nicotine dependence, cigarettes, uncomplicated; F12.90 Cannabis use, unspecified, uncomplicated; E66.01 Morbid (severe) obesity due to excess calories; Z68.39 Body mass index [BMI] 39.0-39.9, adult; Z79.51 Long term (current) use of inhaled steroids; Z98.890 Other specified postprocedural states; Z80.0 Family history of malignant neoplasm of digestive organs
CPT/HCPCS: 43239; 45378; 88305; J2003; J2704; J7120

== ENCOUNTER 2025-06-15 10:12 | Emergency (ER) | payer OTHER, SELFPAY ==
[2025-06-15] VITALS (14 sets, daily range): BP systolic 111–132; BP diastolic 76–90; PULSE 48–80; RESP 11–20; TEMP 36.6; O2SAT 95–99
--- NOTE | ~2025-06-15 | CT_ITS ---
EXAMINATION: CT brain wo con DATE: 06/15/2025 10:59 INDICATION: Seizure. TECHNIQUE: Computed tomography (CT) of the head was performed without intravenous contrast. The mA was adjusted according to patient size. Iterative reconstruction technique was employed. The dose-length product was 605.33 mGy-cm. COMPARISON: None FINDINGS: There is no intracranial hemorrhage, acute infarction, or abnormal intracranial mass lesion. The ventricles are normal in size. The orbits are normal. The paranasal sinuses are clear. The mastoid air cells are normal. IMPRESSION: 1. Normal brain. Reviewed, dictated and finalized at location E. IMPRESSION: 1. Normal brain.
--- NOTE | ~2025-06-15 | XR_ITS ---
Examination: XR chest 2V Clinical History: Seizure Comparison: 09/29/2018 Technique: PA and Lateral Findings: Cardiomediastinal silhouette normal size and configuration. Lungs clear. No acute bony abnormality. IMPRESSION: 1. No acute cardiopulmonary findings. Reviewed, dictated and finalized at location R.
--- NOTE | 2025-06-15 10:24 | ED_ITS ---
HPI - Seizure General Chief Complaint: Seizure Stated Complaint: possible seizure Time Seen by Provider: 06/15/25 10:23 Source: patient Mode of arrival: ambulatory Limitations: no limitations History of Present Illness HPI Narrative: Patient is a 39-year-old female with 2 episodes of seizure-like activity while she has been out of her blood pressure medicine and started again recently. She also had another episode that was a stroke-like change where she was having facial drooping and difficulty speaking. All all she has been having neurological focal changes over the past week. She has decided to come in at this time but not at the time of the events per her own wishes. No head injuries. 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, either self-employed or otherwise?: No Related Data Home Medications ?Medication ?Instructions ?Recorded ?Confirmed ?Last Taken ?Type venlafaxine 75 mg capsule,extended 75 mg PO DAILY 12/1606/06/25 04/04/25 History release 24 hr (Effexor XR) clonazepam 1 mg tablet 1 mg PO DIRECTED 06/24/24 06/06/25 04/04/25 History hydrochlorothiazide 12.5 mg tablet 25 mg PO DAILY 12/2806/06/25 04/04/25 History linaclotide 145 mcg capsule 145 mcg PO DAILY 01/25/25 06/06/25 04/04/25 History (Linzess) estradiol 2 mg tablet 2 mg PO DAILY 06/15/2506/15 Unknown History Allergies Allergy/AdvReac Type Severity Reaction Status Date / Time Sulfa (Sulfonamide Allergy Mild Hives Verified 06/15/25 10:45 Antibiotics) Review of Systems 2 Review of Systems: All systems reviewed & are unremarkable except as noted in HPI and below Constitutional: Constitutional: Reports no additional constitutional complaints Eyes: Eyes: Reports no additional eye complaints ENT: Reports system reviewed and no additional complaints, except as documented Cardiovascular: Cardiovascular: Reports no additional cardiovascular complaints Respiratory: Respiratory: Reports no additional respiratory complaints Gastrointestinal: Gastrointestinal: Reports no additional gastrointestinal complaints Genitourinary: Genitourinary: Reports no additional female genitourinary complaints Musculoskeletal: Musculoskeletal: Reports no additional musculoskeletal complaints Integumentary/Breasts: Skin/Breast: Reports system reviewed and no additional complaints, except as docu Neurologic: Reports system reviewed and no additional complaints, except as documented Psychiatric: Psychiatric: Reports no additional psychiatric complaints Endocrine: Endocrine: Reports no additional endocrine complaints Hematologic/Lymphatic: Hematologic/Lymphatic: Reports no additional hematologic/lymphatic complaints Allergic/Immunologic: Allergic/Immunologic: Reports no additional allergic/immunologic complaints PMFSH Past Medical History Medical History Family history of pancreatic cancer Family history of colon cancer in father Nicotine dependence High cholesterol HTN (hypertension) Bronchitis Asthma Surgical History Surgical History History of placement of ear tubes H/O: hysterectomy 03/2024 History of hand surgery Left March 2020 H/O oophorectomy Family History Family History Father Pancreatic cancer Mother Hypertension Diabetes mellitus Social History Social History Smoking packs per day: 0.5 Smoking cigarettes per day: 10.0 Years smoked: 20 Smoking pack-years: 10.00 Smoking status: Current every day smoker Tobacco type: cigarettes Second hand tobacco smoke exposure: No Smoking end date: 05/30/20 Alcohol intake: never Substance use: current Substance use type: marijuana Last use: 03/01/2020 Living arrangements: with family Additional living arrangements comments: [phone] Gender identity (if verbalized by the patient): Female Spiritual care concerns: No Exam 2 Const: General: healthy appearing Nutritional Appearance: well nourished Orientation/consciousness: patient oriented x3 Limitations: no limitations HENMT: Head: normal to inspection Ears: external ears normal F mandie/Nose/Sinus: Normal external nose present Eyes: Conjunctivae: conjunctivae normal Pupils: Equal, round and reactive pupils present EOM: EOMs intact bilaterally Neck: Neck: normal visual inspection Chest: Chest palpation & inspection: normal inspection of the chest Resp: Effort & Inspection: normal respiratory effort and not labored A uscultation: clear to auscultation bilaterally and no crackles Cardio: Rate: regular rate and bradycardic Rhythm: regular rhythm Heart sounds: no murmurs GI: Inspection: non-distended GI Palp: Yes Soft to palpation and No Tenderness to palpation present (GI) Auscultation: normal bowel sounds : General: Yes bladder normal to palpation Back/Spine/Pelvis: Back: no CVA tenderness Skin: General skin exam: normal color Rashes: no rashes Wounds: no wounds Neuro: General: patient oriented x3, moves all extremities, no meningeal signs, no focal motor deficits and CN's II-XI intact bilaterally Cranial nerves: Yes Nystagmus not present Speech: normal speech Gait exam (Neuro): Normal gait present Other: Fast exam is negative, NIH is 0, GCS is 15 Extrem: General: normal to inspection, no clubbing, cyanosis or edema and no pedal edema Psych: Appearance: grossly normal Mental Status: mental status grossly normal Affect: normal affect Attitude: cooperative Course Vital Signs Vital signs: Vital Signs Temperature 36.6 C 06/15/25 10:12 Pulse Rate 80 06/15/25 10:12 Respiratory Rate 16 06/15/25 10:12 Blood Pressure 132/90 06/15/25 10:12 Pulse Oximetry 98 06/15/25 10:12 Oxygen Delivery Room Air 06/15/25 10:12 Temperature 36.6 C 06/15/25 10:12 Pulse Rate 51 L 06/15/25 11:22 Respiratory Rate 17 06/15/25 11:22 Blood Pressure 116/80 06/15/25 11:22 Pulse Oximetry 96 06/15/25 11:22 Oxygen Delivery Room Air 06/15/25 11:22 MDM - Seizure MDM Narrative Medical decision making narrative: Patient is a 39-year-old female with 2 seizure-like activity events and 2 focal neurological deficit events over the past week. We will do a neuro cardiac workup at this time. Lab Data Attestation: I reviewed the patient's lab results. 06/15/25 10:53 06/15/25 10:53 Labs: Lab Results 06/15/25 06/15/25 06/15/25 Range/Units 10:29 10:30 10:53 WBC 10.5 (4.8-10.8) K/mm3 RBC 4.92 (4.20-5.40) M/mm3 Hgb 14.5 (12.0-15.0) g/dL Hct 42.9 (35.0-49.0) % MCV 87.2 (78.0-102.0) fL MCH 29.5 (27.0-31.0) pg MCHC 33.8 (32-36) g/dL RDW 12.8 (11.6-14.4) % Plt Count 223 (150-420) K/mm3 MPV 10.8 (9.2-11.8) fl Immature Gran % (Auto) 0.3 H (0.0-0.0) % Neut % (Auto) 65.9 (50.0-70.0) % Lymph % (Auto) 25.8 (18.0-42.0) % [place] % (Auto) 5.7 (2.0-11.0) % Eos % (Auto) 1.6 (1.0-6.0) % Baso % (Auto) 0.7 (0.0-1.0) % Lymph # (Auto) 2.70 (1.10-4.50) K/mm3 [place] # (Auto) 0.60 (0.10-0.90) K/mm3 Eos # (Auto) 0.17 (0.02-0.50) K/mm3 Baso # (Auto) 0.07 (0.00-0.10) K/mm3 Abs Immat Gran (auto) 0.03 H (0.00-0.00) K/mm3 Absolute Neuts (auto) 6.90 (1.70-7.20) K/mm3 Absolute Nucleated RBC 0.00 (0.00-0.00) K/mm3 Nucleated RBC % 0.0 (0-0.0) % Sodium 140 (137-145) mmol/L Potassium 4.0 (3.4-5.0) mmol/L Chloride 104 (98-107) mmol/L Carbon Dioxide 27 (22-30) mmol/L Anion Gap 9 (4-12) mmol/L BUN 12 (7-17) mg/dL Creatinine 0.85 (0.7-1.0) mg/dL Estim Creat Clear Calc 107 ml/min Estimated GFR > 60 (59 - ) Glucose 112 H (65-110) mg/dL Calculated Osmolality 290 (285-295) mOsm/kg Calcium 9.5 (8.4-10.2) mg/dL Magnesium 1.9 (1.6-2.3) mg/dL Total Bilirubin 0.7 (0.2-1.3) mg/dL AST 23 (14-36) U/L ALT 18 (6-35) U/L Alkaline Phosphatase 69 (38-126) U/L Troponin I < 0.012 (0.000-0.034) ng/mL Total Protein 8.5 H (6.3-8.2) g/dL Albumin 4.3 (3.5-5.1) g/dL TSH 1.550 (0.465-4.680) uIU/mL Urine Color Yellow (Yellow) Urine Appearance Cloudy A (Clear) Urine pH 6.0 (5.0-8.0) Ur Specific [place] 1.020 (1.010-1.020) Urine Protein Negative (Negative) Urine Glucose (UA) Negative (Negative) Urine Ketones Negative (Negative) Ur Blood (Man) Trace-intact H (Negative) Urine Nitrate Negative (Negative) Urine Bilirubin Negative (Negative) Urine Urobilinogen 0.2 (0.2-1.0) mg/dL Leukocyte Esterase Rfl Negative (Negative) ANYI/UL Urine RBC 3-5 H (0-2) /hpf Urine WBC None seen (0-3) /hpf Ur Squamous Epith Cells Moderate H (Few) /hpf Urine Bacteria 1+ H (None) /hpf Urine Test Negative Urine Opiates Screen Negative (Negative) Urine Methadone Screen Negative (Negative) Ur Barbiturates Screen Negative (Negative) Ur Phencyclidine Scrn Negative (Negative) Ur Amphetamine Screen Negative (Negative) U Benzodiazepines Scrn Negative (Negative) Urine Cocaine Screen Negative (Negative) U Cannabinoids Screen Positive A (Negative) Imaging Data Attestation: I personally reviewed and interpreted this imaging study as follows: Radiologist's impression: CT scan of the head was negative for acute process Chest x-ray was negative for acute process ECG Data EKG #1: Attestation: I personally reviewed and interpreted this ECG as follows: ECG completion date: 06/15/25 ECG completion time: 10:52 EKG Interpretation: bradycardia, sinus rhythm, no ectopy, no ST changes, normal QRS, normal QT and NL axis Discharge Plan Discharge Clinical Impression: Seizure-like activity, Hypertension Patient Disposition: Home Condition: Stable Instructions: Nonepileptic Seizures (ED) Additional Instructions: Please follow-up with the primary doctor in the next week. I suggest to see a neurologist in the near 1-2 weeks for evaluation of these seizure-like activities. I do not suggest to drive until final diagnosis. Come back to the ER with any further or worse problems or recurrent seizure activity. MRI of the brain will likely be done with the neurologist. I do suggest MRI of the brain which can be done with the primary doctor as well. Make sure to take your blood pressure medicine daily. Patient Language: Salvadorean Prescriptions: No Action hydrochlorothiazide 12.5 mg tablet 25 mg PO DAILY Rx Instructions: TAKE 1 TABLET BY MOUTH DAILY FOR 3 DAYS, THEN INCREASE TO 2 TABLETS DAILY estradiol 2 mg tablet 2 mg PO DAILY clonazepam 1 mg tablet 1 mg PO DIRECTED venlafaxine [Effexor XR] 75 mg Capsule,Extended Release 24hr 75 mg PO DAILY betamethasone valerate 0.1 % cream 1 applic topical BID PRN (Reason: itching) Qty: 15 1RF Rx Instructions: applied ear canal b.i.d. p.r.n. itching Linzess 145 mcg capsule 145 mcg PO DAILY budesonide-formoterol [Symbicort] 160-4.5 mcg/actuation HFA aerosol inhaler See Rx Instructions .ROUTE .COMPLEX Qty: 10.2 2RF Dose Instruction: INHALE 1 PUFF DAILY TAKE ONE INHALATION ONCE DAILY. Rx Instructions: INHALE 1 PUFF DAILY TAKE ONE INHALATION ONCE DAILY. lisinopril 40 mg tablet See Rx Instructions .ROUTE .COMPLEX Qty: 30 1RF Dose Instruction: TAKE 1 TABLET BY MOUTH EVERY DAY -MONITOR BLOOD PRESSURE 2X DAILY BEFORE COFFEE, STIMULANT, BP MED Rx Instructions: TAKE 1 TABLET BY MOUTH EVERY DAY -MONITOR BLOOD PRESSURE 2X DAILY BEFORE COFFEE, STIMULANT, BP MED albuterol sulfate 90 mcg/actuation HFA aerosol inhaler See Rx Instructions .ROUTE .COMPLEX Qty: 8.5 2RF Dose Instruction: INHALE 2 PUFFS BY MOUTH FOUR TIMES DAILY Rx Instructions: INHALE 2 PUFFS BY MOUTH FOUR TIMES DAILY amlodipine 10 mg tablet 10 mg PO DAILY Qty: 90 0RF acyclovir 400 mg tablet 400 mg PO BID 90 Days Qty: 180 2RF gabapentin 100 mg capsule 100 mg PO QHS Qty: 90 1RF meloxicam 7.5 mg tablet See Rx Instructions .ROUTE .COMPLEX Qty: 60 0RF Dose Instruction: TAKE 2 TABLETS DAILY NEEDED FOR PAIN Rx Instructions: TAKE 2 TABLETS DAILY NEEDED FOR PAIN cyclobenzaprine 7.5 mg tablet See Rx Instructions .ROUTE .COMPLEX Qty: 60 0RF Dose Instruction: TAKE 1 TABLET TWICE DAILY NEEDED FOR MUSCLE SPASMS Rx Instructions: TAKE 1 TABLET TWICE DAILY NEEDED FOR MUSCLE SPASMS Follow-up/Referrals: Treva Martell APRN [Primary Care Provider, Family Practice] Time of Disposition: 12:14
--- NOTE | 2025-06-15 10:26 | ECG_ITS ---
Test Date: 2025-06-15 10:33:26 Measurements Intervals [place] Rate: 55 P: 49 MO: 143 QRS: 56 QRSD: 100 T: 59 QT: 440 QTc: 423 Interpretive Statements SINUS BRADYCARDIA WITH SINUS ARRHYTHMIA MINIMAL Q WAVES- INF/LAT LEADS BORDERLINE ECG Compared to ECG 03/30/2025 10:03:17 HEART RATE HAS DECREASED Electronically Signed On 06-15-2025 11:16:22 CDT by Ezequiel Abdi D.O.
[2025-06-15 10:38] LABS: Add Urine Microscopic? YES; Appearance Urine Cloudy (Clear); Glucose Urine UA Negative (Negative); Leukocyte Esterase Ur Negative LEU/UL (Negative); Nitrate Urine Negative (Negative); Specific Grav Ur 1.020 (1.010-1.020)
[2025-06-15 10:43] LABS: Pregnancy On Board Control Positive
--- OUTSIDE RECORDS SUMMARY | 2025-06-15 10:48 | XMS_ITS | Clinical Summary ---
Author Organization [facility] Address [address] [place] [address] Care Team Providers Care Cake Inspector Name Role Phone Treva Martell NP Primary Care Provider [phone] Allergies Active Allergy Reactions Criticality Noted Date [...] - 03/15/2025 11:59 PM CDT Hospital Encounter [facility] [address] [place] [address] Encounter for disability determination Discharge Disposition: Discharge [...] 0.6 oz pur e alcohol) [facility] Utilities Answer Date Recorded In the past 12 months has [employer], Immediately, oil, or water [employer] threatened to shut off services in your home? No 04/19/2024 Social Connection and Isolation Panel Answer Date Recorded In a typical week, [...] any clubs o r organizations such as restoration groups, unions, fraternal or athletic groups, or [...] time in the past 12 m [facility], were you homeless or living in a care home (including now)? No 04/19/2024 Personal Safety Answer Date Recorded Have you ever been in or are you currently in a harmful physical or emotional relationship or is someone making you feel afraid or unsafe? 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 MF: NEHA Report ID: [id number] Reading Location: [place] [address] Procedure Note Kings Chandler MD - 03/16/2025 [...] Kings Chandler M.D. MF: NEHA Report ID: [id number] Reading Location: [place] [address] Ryder Burton MD IMG XR PROCEDURES Final [...] Kings Chandler M.D. MF: NEHA Report ID: [id number] Reading Location: [id number] Procedure Note Kings Chandler MD - 03/16/2025 [...] Kings Chandler M.D. 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:->[employer] us Gus Regan MD LAB MICROBIOLOGY - GENERAL OR DERABLES Edited Result - Final [facility] [address] [facility] Department [place] [address] from Last 3 Months or Most Recently Relevant to Health Maintenance Insurance [facility] MEDICAID [facility] Advance Directives For more information, please contact: [phone] * Full Code (Latest Code Status on File) Date Activated Date Inactivated Comments 04/18/2024 3:12 PM 04/20/2024 2:43 PM Care Teams Cake Inspector Relationship Specialty Start Date End Date Treva Martell NP [address] [place] [address] PCP - General Family Medicine 04/07/24
--- OUTSIDE RECORDS SUMMARY | 2025-06-15 10:48 | XMS_ITS | Clinical Summary ---
Author Organization [facility] Address [facility] [place] [address] Care Team Providers Care Quality Assurance Assessor Name Role Phone Stacie Ferreira MD Primary Care Provider [phone] Allergies Active Allergy Reactions Criticality Noted Date [...] (1 - 3-dose SCD M series) 2011 Mammogram Screening 2024 COVID-19 Vaccine (2 - 2024-2 6 season) 2025 12/04/2020 Influenza Adult (#1) 2025 Cervical Cancer Screening Pa p with HPV [...] PAPILLOMAVIRUS, HIGH-RISK TYPES Routine 09/22/2022 8:00 AM SERVER DEVELOPER from Last 3 Months or Most Recently Relevant to Health Maintenance Results * HUMAN PAPILLOMAVIRUS, HIGH-RISK TYPES (09/22/2022 8:00 AM SERVER DEVELOPER) SPEC DESCRIPTION CERVIX 09/24/19 23 2:53 PM SERVER DEVELOPER [facility] HPV DNA HIGH RISK NEGATIVE NEGATIVE 09/25/2022 12:27 PM SERVER DEVELOPER [facility] Comment:SEE CYTOLOGY REPORT 09/22/2022 8:00 AM SERVER DEVELOPER Provider Non-Staff PATHOLOGY/CYTOLOGY ORDERABLES Final Result [facility] [address] [place] [address], from Last 3 Months or Most Recently Relevant to Health Maintenance Insurance [employer] [place] Care Teams Quality Assurance Assessor Relationship Specialty Start Date End Date Stacie Ferreira MD [facility] [address] [place] [address] PCP - General FAMILY PRACTICE 12/24/20
--- OUTSIDE RECORDS SUMMARY | 2025-06-15 10:48 | XMS_ITS | Data Portability ---
Author Organization [facility] [facility] Address [address] [place] [address] Assessment No assessment recorded. Plan of Treatment Reminders Order Date Submit Date Provider Last Modified By Organization Details Last Modified Time Details Appointments None recorded. Lab estradiol, serum 2024 025 [employer] [facility], [address] [place], [address], 5 11:57:10 FSH (follicle-s timulating hormone), serum 2024 025 [facility] [place] [facility], [address] [place] [address], [address], 5 12:35:31 vitamin D, 25-hydroxy, total, serum 2024 025 [employer] [facility], [address] [place], [address], 5 11:57:11 biopsy, tissue 2023 024 [employer] [facility], [address] [place], [address], 4 16:09:00 test, urine 2023 024 [email or web address] 1 [facility], [address] [place], [address], 4 20:15:19 HPV E6+E7 mRNA, qualitative PCR, cervix 2023 024 [facility], [address] [place], [address], 09:22:35 pap, LB 2023 024 [facility], [address] [facility], [place], [address], 18:37:24 Referral None recorded. Procedures None recorded. Surgeries None recorded. Imaging US, transvagina l 2023 024 [email or web address] Not available 17:53:49 Medication Orders ketorolac 10 mg tablet 2023 025 [id number], [address] [place], [address], 12:27:48 Patient TargetsNo targets recorded. Patient Instructions Encounter Date Encounter Id Patient Instructions Last Modified By Organization Details Last Modified Time 12/20/2023 [id number] body mass index: care instructions Not available [...] is recom kim call (orde r code 86529 ). Bita e note: patie nts being [...] s. [facility] order code 12489 -Estr adiol , Ultra sensi tive LC/MS /MS demon strat es negli gible cross react ivity with fulve stran t. Not Available [facility] [address] [place], [address], 09/07/2024 11:57:10 09/07/19 25 09/07/2024 VITAM IN [...] /MS is recom kim d: order code 58772 (kerry ents >2yrs ). See Note 1 NO COLLE CTION DATE RECEI SARIAH. WE HAVE USED THE DATE THE SPECI MEN WAS RECEI SARIAH BY THIS LABOR ATORY THE COLLE CTION DATE. IF THIS IS INCOR RECT, BITA E CONTA CT CLIEN T SERVI CARLITA. PHONE JUVE R: [phone]. [phone] Note 1 For addit ional infor bita monteiro refer to http: //[facility] yanick khoury.Que stDia gnost ics.c om/fa q/FAQ 199 (This link is being provi ded for infor kourtney han/ educa jairo l purpo ses only. ) Not Available [facility] [place] [address] [place], [address], 09/07/2024 11:57:11 12/20/19 24 12/22/2023 HPV HIGH [...] l cervi aman cytol ogy. Not Available [address], [address], 12/23/2023 09:22:35 12/20/19 24 12/23/2023 THINP REP TIS PAP clinical information: normal None given Not Available [facility] [place] [address] [place], [address], 12/23/2023 18:37:24 12/20/19 24 12/23/2023 THINP REP TIS PAP LMP: normal NONE GIVEN Not Available [facility] [place] [address] [place], [address], 12/23/2023 18:37:24 12/20/19 24 12/23/2023 THINP REP TIS PAP prev. Pap: normal NONE GIVEN Not Available [facility] [place] [address] [place], [address], 12/23/2023 18:37:24 12/20/19 24 12/23/2023 THINP REP TIS PAP prev. BX: normal NONE GIVEN Not Available [address], [address], 12/23/2023 18:37:24 12/20/19 24 12/23/2023 THINP REP TIS PAP source: normal Cervi x Not Available [address] [place], [address], 12/23/2023 18:37:24 12/20/19 24 12/23/2023 THINP REP TIS PAP statement of adequacy: normal Satis facto ry for evalu ation . Endoc ervic al/tr ansfo rmati on zone compo nent prese nt. Age and/o r menst rual statu s not provi ded Not Available [place] [address] [address] [place], [address], 12/23/2023 18:37:24 12/20/19 24 12/23/2023 THINP REP TIS PAP interpretati on/result: normal Cytol ogy Resul ts: Negat suad for intra epith elial lesio n or aria gustafson . Not Available [address] [address] [place], [address], 12/23/2023 18:37:24 12/20/19 24 12/23/2023 THINP REP TIS PAP comment: normal This Pap test has been evalu ated with compu ter fernando alex techn ology . Not Available [place] [address] [address] [place], [address], 12/23/2023 18:37:24 12/20/19 24 12/23/2023 THINP REP TIS PAP cytotechnolo gist: normal BKA, CT( CP) CT scree sheila locat ion: [place] [address] [place] [place] [address] Not Available [place] [address] [address] [place], [address], 12/23/2023 18:37:24 12/20/19 24 12/23/2023 THINP REP [...] clini aman infor matale n. Not Available [address] [address] [place], [address], 12/23/2023 18:37:24 01/06/20 24 01/12/2024 TISSU E PATHO LOGY clinical information Abnor mal uteri ne bleed ing Not Available [address] [address] [place], [address], 01/12/2024 16:09:00 01/06/20 24 01/12/2024 TISSU E PATHO LOGY pathologist Lucy fitzpatrick MD Board Certi fied in Anato ángel Patho logy and Clini aman Patho logy (elec troni c signa ture) Not Available [address] [address] [place], [address], 01/12/2024 16:09:00 01/06/20 24 01/12/2024 TISSU E PATHO LOGY A source Endom etriu m, biops y Not Available [place] [address] [address] [place], [address], 01/12/2024 16:09:00 01/06/20 24 01/12/2024 TISSU E [...] [facility] [place] [address] [place] [address] AY, [place] [phone] Labor atory Direc tor: DAVY Khan MD Not Available [facility] [place] [address] [place], [address], 01/12/2024 16:09:00 01/06/20 24 01/12/2024 TISSU E PATHO LOGY A diagnosis Mildl y disor dered proli ferat suad endom etriu m, admix ed with blood . Not Available [facility] [place] [address] [place], [address], 01/12/2024 16:09:00 01/06/20 24 01/12/2024 TISSU E PATHO LOGY A comment No evide nce of hyper plasi a or malig sj in the speci men submi tted. Clini aman corre latio n/fol low-u p is recom kim d. Not Available [facility] [place] [address] [place], [address], 01/12/2024 16:09:00 01/06/20 24 01/06/2024 pregn kemar test, urine HCG negati ve Not Available [facility] [address] [place], [address], 01/06/2024 16:06:16 09/06/19 25 09/07/2024 FSH FSH [...] : 23.0- 116.6 mIU/m L Not Available [place] [address] [place], [address], 09/07/2024 12:35:31 01/06/20 24 01/06/2024 US, trans vagin al No observ ation record ed. Patricia [address], [facility], [place], [address], 01/10/2024 22:33:22 Result Notes None recorded. Procedures Surgical History Date Name Laterality Status Provider Name and Address Organization Details Recorded Time 4 Suture/Staple removal cancelled Brooke Shannon [place] [facility] 05/31/2024 12:01:19 4 Suture/Staple removal cancelled Aidee Yaoa [place] [facility] 04/28/2024 10:39:23 4 Endometrial Biopsy completed MACK GRAHAM DO [facility] [place], [address], [facility] 01/10/2024 20:26:59 4 Date of Last Pap Smear completed Latisha Shannon [place] [employer] [facility] 01/06/2024 15:25:56 Removal of Ovaries completed Missy Forrester [employer] [facility] 12/20/2023 12:15:14 Imaging Results None recorded. Procedure Notes None recorded. Medical Equipment None Reported. Allergies Allergen ID Allergen Name Allergen Category Reaction Reaction Severity Criticality Documentation Date Start Date Code Code System Note Provider Name and Address Organization Details Recorded Time [id number] Substance with sulfonami de structure and antibacte rial mechanism of action (substanc e) medicatio n Not available Not available Not available 12/20/2023 09102 3243 SNOMED Missy roberts, [facility] 4 12:15:13 Medications Name Sig [...] Updated DateTime 09/06/2024 175.26 cm 39.6 kg/m2 604539.19 g 122/80 mm[Hg] Latisha [facility] 09/06/2024 12:27:26 Date Recorded Body height Body mass index (BMI) Body weight Body temperature Systolic And Diastolic Provider Name and Address Organization Details Last Updated DateTime 12/20/2023 175.26 cm 38.5 kg/m2 948425. 89 g 97.7 [degF] 128/76 mm[Hg] Missy Irvinbe [facility] [employer] IV 12:14:33 Date Recorded Body height Body mass index (BMI) Body weight Systolic And Diastolic Provider Name and Address Organization Details Last Updated DateTime 01/06/2024 175.26 cm 37.5 kg/m2 808284.18 g 130/78 mm[Hg] Latisha [facility] [employer] IV 01/06/2024 15:25:19 Date Recorded Body height Body mass index (BMI) Body weight Body temperature Systolic And Diastolic Provider Name and Address Organization Details Last Updated DateTime 03/28/2024 175.26 cm 37.9 kg/m2 107420. 8 g 97.3 [degF] 122/86 mm[Hg] [facility] IV 10:08:20 Date Recorded Body height Provider Name an d Address Organization Details Last Updated DateTime 05/04/2024 175.26 cm Leydi [facility] 05/04/2024 09:51:57 Date Recorded Body mass index (BMI) Body weight Body temperature Systolic And Diastolic Provider Name and Address Organization Details Last Updated DateTime 05/04/2024 39.6 kg/m2 142733.7 6 g 97.3 [degF] 120/78 mm[Hg] Estefania Vega [facility] [employer] IV 05/04/2024 09:58:45 Social History Question Answer Notes LastModified by Organizat ion Details LastModified Time Tobacco Smoking Status Current Every Day Smoker Missy Forrester armando, [facility] 12/20/2023 12:15:14 How Many Years Have [...] History of Abnormal Pap Y Fibroids Y Depression Y Asthma Y Seasonal allergies Y Gynecological History Statement/Question [...] Diagnosis SNOMED-CT Code Diagnosis ICD10 Code Diagnosis IMO Codes Diagnosis Note [id number] MACK GRAHAM, [facility] [address] [place] [address] 12/20/2023 12:07:51 12/20/2023 14:50:50 Abnormal uterine bleeding 2309556946 9100 N93.9 RTO for US 5 days of heavy bleeding, needing to change pad [id number] le in rehab was [place] heavy bleedingpr eviously tried COCswas informed had fibroids and endometrio sish/o unilateral salpingo-o ophorectom y via ex-lap at 16 yo for what pt believes was a dermoid cyst Screening for malignant neoplasm of cervix 985296290 Z12.4 Gynecologi c examination 51630472 Z01.419 38 y.o. here for annual exam. [...] annual or PRN Surveillan ce of contraception 392513713 Z30.40 Depression screening 171 926561 Z13.31 History of substance abuse 908763936 F19.21 h/o crack cocaine usejust out of rehab for 2 monthshas been tested for HIV and hepatitis; negative [id number] MACK GRAHAM DO [facility] [address] [place] [address] 01/06/2024 13:55:43 01/11/2024 15:34:15 Abnormal uterine bleeding 3287414898 9100 N93.9 38 y.o. with AUB-L. - [...] terectomy consent signed Intramural leiomyoma of uterus 35950600 D25.1 [id number] MACK SANTOS, [facility] [address] [place] [address] 03/28/2024 09:56:10 03/28/2024 10:29:42 Preprocedural examination done 5624013930 36705 Z01.818 38 yo w/ AUB-L here for pre-op evaluation prior to hysterecto my -Pap w/ HPV: nilm, -HPV-EMB: benign-Dis cussed pre-op and post-op expectatio ns-Plan for OnQ pain pump-Does not require pre-op medical clearance- Plan for RATLHBS w/ cysto @ [facility] Uterine leiomyoma 087401 05 D25.9 Additional diagnosis detail: Uterine leiomyoma, unspecifie d location Abnormal u terine bleeding 3416449614 9100 N93.9 38 y.o. with AUB-L. - [...] or mini-lap due to size of uterus. [id number] MACK GRAHAM DO [facility] [address] [place] [address] 05/04/2024 09:50:12 05/04/2024 10:58:44 Postoperative visit 712977026 Z09 38 yo s/p TAHBS here for 2w POV Had surgical site infection, seen at [facility] and given abx. Discussed postoperat suad pathology with patient. Reviewed Surgical findings. Patient instructed to maintain strict pelvic rest and no heavy lifting greater than 20 lbs. She was instructed to return for a second postoperat suad visit in 4 weeks to evaluated the vaginal cuff. All of her questions were answered. [id number] MACK GRAHAM DO [facility] [address] [place] [address] 09/06/2024 12:21:04 09/06/2024 13:41:11 Menopausal symptom 78406988 N95.1 [id number] History of hysterectomy 653085336 Z90.710 [id number] vaginal cuff well healed Health Concerns Section Related Observation LastModified by Organization Detai ls LastModified Time None Recorded Concern Status LastModified by Organization Details LastModified Time None Recorded Advance Directives Directive None Recorded Payers Insurance Date Sequence Insurance Name Policy Number Policy Jackson Covered Member ID Jackson Member ID Guarantor Name 05/04/2024 1 [place] Kristi Chicas [id number] Kristi Chicas 01/04/2025 1 [facility] - DOS ON OR AFTER 21 (MEDICAID REPLACEMENT - HMO) Kristi Chicas [id number] Kristi Chicas Notes Date Note Type Note Provider Name and Address Organization Details Recorded Time 12/20/2023 text/html Kristi is here today to discuss surgery.She would like more information of having a hysterectomyHer periods are very irregular and painfulHer flow is very heavyShe complains of pain in her abdomen and lower back MACK GRAHAM DO [address] [facility], [place], [address], [facility] 12/20/2023 14:20:43 01/06/2024 text/html Abnormal BleedingReported by Patient Kristi 38 y/o here for f/u on abnormal vaginal bleeding, LMP 12/20/2023, periods are heavy and irregular, Last pap 12/20/2023, History of fibroids / endometriosis . U/S done today MACK GRAHAM DO [address] [facility], [place], [address], [employer] [facility] [facility] 01/10/2024 20:27:52 03/28/2024 text/html Pre-Op OBGYN HPIReported by PatientHPIFor anesthesia hx, patient reportsanesthesia proposed: general. For surgery to be performed, (ratlhbs). For diagnosis, (uterine fibroids). For location, ([facility] on 04/18/24). Kristi presents today for pre op visit MACK GRAHAM DO [facility] [facility], [place], [address], [facility] 03/28/2024 10:25:52 05/04/2024 text/html Post-OpReported by PatientHPIFor associated symptoms, patient reportsincision not healing well,pain not improving, andpainbut reportsno fatigue,normal appetite,normal bowel function,no constipation,no nausea,no emesis,no fever,no bleeding,no lower extremity edema/pain, andno dysuria/urinary symptoms. For onset/timing, patient reportsdate of surgery: (04/18/2024). For quality, patient reportsprocedure: (laparoscopic convert to total abdominal hysterectomy,bilateral salpingectomy). MACK GRAHAM DO [address] [facility], [place], [address], [facility] 05/04/2024 10:56:16 09/06/2024 text/html MenopauseReporte d by Patient Kristi 39 y/o here with c/o hormone issues, she had Hysterectomy 04/18/2024, c/o acne, mood swings, hot flashes , MACK GRAHAM DO [address] [facility], [place], [address], [facility] 09/06/2024 12:50:18 OBGyn Episode No OBEpisode recorded.
[2025-06-15 10:56] LABS: Hematocrit 42.9 % (35.0-49.0); Hemoglobin 14.5 g/dL (12.0-15.0); Immature Granulocyte Percent A 0.3 % (0.0-0.0); Lymphocytes Absolute Auto 2.70 K/mm3 (1.10-4.50); Mean Corpuscular HGB Conc 33.8 g/dL (32-36); Mean Corpuscular Hemoglobin 29.5 pg (27.0-31.0); Mean Corpuscular Volume 87.2 fL (78.0-102.0); Nucleated Red Blood Cells Absolute Auto 0.00 K/mm3 (0.00-0.00); Nucleated Red Blood Cells Perc 0.0 % (0-0.0); Platelet Count Result 223 K/mm3 (150-420); Red Blood Count 4.92 M/mm3 (4.20-5.40); White Blood Count 10.5 K/mm3 (4.8-10.8)
[2025-06-15 11:10] LABS: Magnesium 1.9 mg/dL (1.6-2.3)
[2025-06-15 11:16] LABS: Alanine Aminotransferase 18 U/L (6-35); Albumin Level 4.3 g/dL (3.5-5.1); Alkaline Phosphatase 69 U/L (38-126); Aspartate Amino Transferase 23 U/L (14-36); Bilirubin,Total 0.7 mg/dL (0.2-1.3); Blood Urea Nitrogen 12 mg/dL (7-17); Calcium 9.5 mg/dL (8.4-10.2); Carbon Dioxide 27 mmol/L (22-30); Estimated CRCL calculation 107 ml/min; Estimated Glomerular Filt Rate > 60; Glucose 112 mg/dL (65-110); Osmolality Calculated 290 mOsm/kg (285-295); Sodium 140 mmol/L (137-145); Total Protein 8.5 g/dL (6.3-8.2)
[2025-06-15 11:24] LABS: Anion Gap 9 mmol/L (4-12); Chloride 104 mmol/L (98-107); Potassium 4.0 mmol/L (3.4-5.0)
[2025-06-15 11:24] LABS: Cannabinoid Screen Urine Positive (Negative)
--- OUTSIDE RECORDS SUMMARY | 2025-06-15 11:32 | XMS_ITS | Clinical Summary ---
Author Organization [facility] Address [address] [place] [address] Care Team Providers Care Elastic Attacher Chainstitch Name Role Phone Treva Martell NP Primary Care Provider [phone] Allergies Active Allergy Reactions Criticality Noted Date [...] - 03/15/2025 11:59 PM CDT Hospital Encounter [facility] [address] [place] [address] Encounter for disability determination Discharge Disposition: Discharge [...] = 0.6 oz pur e alcohol) [facility] Utilities Answer Date Recorded In the past 12 months has [employer], [employer], oil, or water [employer] threatened to shut off services in your [...] often do you attend chur ch or yazidism services? Never 04/19/2024 Do you belong to any clubs o r organizations such as confucianism groups, unions, fraternal or athletic groups, or [...] any time in the past 12 m [facility], were you homeless or [...] on file Legal Sex Female 11:28 AM PHOTO FINISHER Gender Identity Not on file Sexual Orientation [...] Completed 04/18/2024 Medical Devices Implanted Type Area Differential Tester Device Identifier Shelf Expiration Date Model / [...] Kings Chandler M.D. MF: NEHA Report ID: [id number] Reading Location: [place] [address] Procedure Note Kings Chandler MD - 03/16/2025 [...] Kings Chandler M.D. MF: NEHA Report ID: [id number] Reading Location: [place] [address] Ryder Burton MD IMG XR PROCEDURES Final [...] Kings Chandler M.D. MF: NEHA Report ID: [id number] Reading Location: [id number] Procedure Note Kings Chandler MD - 03/16/2025 [...] Kings Chandler M.D. MF: NEHA Report ID: [id number] Reading Location: [id number] Ryder Burton MD IMG XR PROCEDURES Final [...] - 04/18/2024 2:58 PM CDT Bill to [facility] - 1520 Patient is employed by/enrolled at:->[employer] us Gus Regan MD LAB MICROBIOLOGY - GENERAL OR DERABLES Edited Result - Final BEATRIZ [address] [facility] Department [place] [address] from Last 3 Months or Most Recently Relevant to Health Maintenance Insurance [facility] MEDICAID [facility] Advance Directives For more information, please contact: [phone] * Full Code (Latest Code Status on File) Date Activated Date Inactivated Comments 04/18/2024 3:12 PM 04/20/2024 2:43 PM Care Teams Elastic Attacher Chainstitch Relationship Specialty Start Date End Date Treva Martell NP [address] [place] [address] PCP - General Family Medicine 04/07/24
--- OUTSIDE RECORDS SUMMARY | 2025-06-15 11:32 | XMS_ITS | Clinical Summary ---
Author Organization [facility] Address [facility] [place] [address] Care Team Providers Care Shirt Presser Name Role Phone Stacie Ferreira MD Primary Care Provider [phone] Allergies Active Allergy Reactions Criticality Noted Date [...] PAPILLOMAVIRUS, HIGH-RISK TYPES Routine 09/22/2022 8:00 AM INSIDE SALES REPRESENTATIVE from Last 3 Months or Most Recently Relevant to Health Maintenance Results * HUMAN PAPILLOMAVIRUS, HIGH-RISK TYPES (09/22/2022 8:00 AM INSIDE SALES REPRESENTATIVE) SPEC DESCRIPTION CERVIX 09/24/19 23 2:53 PM INSIDE SALES REPRESENTATIVE [facility] HPV DNA HIGH RISK NEGATIVE NEGATIVE 09/25/2022 12:27 PM INSIDE SALES REPRESENTATIVE [facility] Comment:SEE CYTOLOGY REPORT 09/22/2022 8:00 AM INSIDE SALES REPRESENTATIVE Provider Non-Staff PATHOLOGY/CYTOLOGY ORDERABLES Final Result [facility] [address] [place] [place] [address], from Last 3 Months or Most Recently Relevant to Health Maintenance Insurance [employer] [employer] [place] Care Teams Shirt Presser Relationship Specialty Start Date End Date Stacie Ferreira MD [facility] [address] [place] [address] PCP - General FAMILY PRACTICE 12/24/20
[2025-06-15 11:41] LABS: Thyroid Stimulating Hormone 1.550 uIU/mL (0.465-4.680)
[2025-06-15 12:09] LABS: Troponin I < 0.012 ng/mL (0.000-0.034)
== END 2025-06-15 12:16 | disposition home or self-care (01) ==
PROVIDERS: Emergency Provider Emergency Medicine; PCP Nurse Practitioner Family
DX: R56.9 Unspecified convulsions (principal); I10 Essential (primary) hypertension; J40 Bronchitis, not specified as acute or chronic; F17.210 Nicotine dependence, cigarettes, uncomplicated
CPT/HCPCS: 36415; 70450; 71046; 80053; 80307; 81001; 81025; 83735; 84443; 84484; 85025; 93005; 99284

== ENCOUNTER 2025-06-16 15:02 | Emergency (ER) | payer OTHER, SELFPAY ==
--- NOTE | ~2025-06-16 | XR_ITS ---
EXAMINATION: XR toe 2nd LT min 2V, 06/16/2025 15:20 CDT HISTORY: Dog bite. Lt. foot, 2nd digit laceration/pain/swelling COMPARISON: No comparisons available. Findings: No acute fracture or malalignment. No significant degenerative changes. Soft tissues unremarkable. Impression: No acute fracture or malalignment. Reviewed, dictated and finalized at location P. Impression: No acute fracture or malalignment.
--- OUTSIDE RECORDS SUMMARY | 2025-06-16 15:29 | XMS_ITS | Clinical Summary ---
Author Organization [facility] Address [facility] [place] [address] Care Team Providers Care Carton Stapler Name Role Phone Stacie Ferreira MD Primary Care Provider [phone] Allergies Active Allergy Reactions Criticality Noted Date [...] 09/22/2022 Cervical Cancer Screening with HPV 09/22/2027 Hepatitis A Vaccines Aged Out No long er eligible based on patient's age to complete [...] PAPILLOMAVIRUS, HIGH-RISK TYPES Routine 09/22/2022 8:00 AM MANAGER OF CASE MANAGEMENT from Last 3 Months or Most Recently Relevant to Health Maintenance Results * HUMAN PAPILLOMAVIRUS, HIGH-RISK TYPES (09/22/2022 8:00 AM MANAGER OF CASE MANAGEMENT) SPEC DESCRIPTION CERVIX 09/24/19 2:53 PM MANAGER OF CASE MANAGEMENT [facility] HPV DNA HIGH RISK NEGATIVE NEGATIVE 09/25/2022 12:27 PM MANAGER OF CASE MANAGEMENT [facility] Comment:SEE CYTOLOGY REPORT 09/22/2022 8:00 AM MANAGER OF CASE MANAGEMENT us Provider Non-Staff PATHOLOGY/CYTOLOGY ORDERABLES Final Result [facility] [address] [place] [address], from Last 3 Months or Most Recently Relevant to Health Maintenance Insurance [employer] [place] Care Teams Carton Stapler Relationship Specialty Start Date End Date Stacie Ferreira MD [facility] [address] [place] [address] PCP - General FAMILY PRACTICE 12/24/20
--- NOTE | 2025-06-16 15:30 | ED.GENADULT ---
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 They were fighting last night. She got in the middle of the fight of the 2 dogs last night. She got bit by one of her two dogs on her left 2nd toe. The dog's vaccinations are up-to-date. Patient's last tetanus is within the last 10 years. She is ambulatory. No significant bleeding. There has been some erythema around that left 2nd toe. Related Data Home Medications ?Medication ?Instructions ?Recorded ?Confirmed ?Last Taken ?Type venlafaxine 75 mg capsule,extended 75 mg PO DAILY 08/02/19 06/06/25 04/04/25 History release 24 hr (Effexor XR) clonazepam 1 mg tablet 1 mg PO DIRECTED 06/24/24 06/06/25 04/04/25 History hydrochlorothiazide 12.5 mg tablet 25 mg PO DAILY 01/07/25 06/06/25 04/04/25 History linaclotide 145 mcg capsule 145 mcg PO DAILY 01/25/25 06/06/25 04/04/25 History (Linzess) estradiol 2 mg tablet 2 mg PO DAILY 06/15/25 06/15/25 Unknown History Allergies Allergy/AdvReac Type Severity Reaction Status Date / Time Sulfa (Sulfonamide Allergy Mild Hives Verified 06/16/25 15:33 Antibiotics) Review of Systems Review of Systems: All systems reviewed & are unremarkable except as noted in HPI and below Constitutional: Constitutional: Denies chills, Denies excessive sweating, Denies fatigue, Denies fever(s), Denies headache(s) and Denies weakness Eyes: Eyes: Denies change in vision and Denies photophobia ENT: Denies dysphagia, Denies dizziness, Denies headache(s), Denies lip swelling, Denies nasal congestion, Denies sore throat and Denies tongue swelling Cardiovascular: Cardiovascular: Denies chest pain, Denies syncope, Denies rapid heart rate and Denies dyspnea Respiratory: Respiratory: Denies cough, Denies dyspnea and Denies wheezing Gastrointestinal: Gastrointestinal: Denies abdominal pain, Denies constipation, Denies dysphagia, Denies diarrhea, Denies nausea and Denies vomiting Genitourinary: Genitourinary: Denies hematuria, Denies urinary frequency, Denies dysuria and Denies urinary urgency Musculoskeletal: Musculoskeletal: Denies back pain, Denies myalgias, Denies arthralgias, Denies joint swelling and Denies numbness Integumentary/Breasts: Skin/Breast: Denies pruritus, Reports erythema (redness in the left second toe) and Denies rash Neurologic: Denies confusion, Denies dizziness, Denies syncope, Denies headache(s), Denies focal weakness, Denies numbness and Denies weakness Psychiatric: Psychiatric: Denies anxiety and Denies confusion Endocrine: Endocrine: Denies excessive sweating and Denies fatigue Hematologic/Lymphatic: Hematologic/Lymphatic: Denies easy bleeding and Denies easy bruising Allergic/Immunologic: Allergic/Immunologic: Denies lip swelling, Denies tongue swelling and Denies wheezing PMFSH Past Medical History Medical History Family history of pancreatic cancer Family history of colon cancer in father Nicotine dependence High cholesterol HTN (hypertension) Bronchitis Asthma Surgical History Surgical History History of placement of ear tubes H/O: hysterectomy 03/2024 History of hand surgery Left March 2020 H/O oophorectomy Family History Family History Father Pancreatic cancer Mother Hypertension Diabetes mellitus Social History Social History Smoking packs per day: 0.5 Smoking cigarettes per day: 10.0 Years smoked: 20 Smoking pack-years: 10.00 Smoking status: Current every day smoker Tobacco type: cigarettes Second hand tobacco smoke exposure: No Smoking end date: 05/30/20 Alcohol intake: never Substance use: current Substance use type: marijuana Last use: 03/01/2020 Living arrangements: with family Additional living arrangements comments: [phone] Gender identity (if verbalized by the patient): Female Spiritual care concerns: No Exam Const: General: healthy appearing, no acute distress, alert and well nourished Nutritional Appearance: well nourished and obese Orientation/consciousness: patient oriented x3 Limitations: no limitations HENMT: Head: normal to inspection Ears: external ears normal Face/Nose/Sinus: normal facial exam Face and sinus: normal facial exam Mouth: Yes moist mucous membranes Throat: posterior oropharynx normal Eyes: Conjunctivae: conjunctivae normal Pupils: Equal, round and reactive pupils present EOM: EOMs intact bilaterally Neck: Neck: normal visual inspection and no meningeal signs Chest: Chest palpation & inspection: normal inspection of the chest and no tenderness Resp: Effort & Inspection: normal respiratory effort and not labored Auscultation: clear to auscultation bilaterally, no crackles, no rhonchi and no wheezes Cardio: Rate: regular rate Rhythm: regular rhythm Heart sounds: no murmurs GI: Inspection: non-distended GI Palp: Yes Soft to palpation, No Tenderness to palpation present (GI), No Guarding due to palpation present (GI) and No Rebound tenderness present : General: Yes no CVA tenderness Back/Spine/Pelvis: Back: no CVA tenderness Cervical Spine: No Cervical spine tenderness Thoracic/Lumbar Spine: No thoracic spinal tenderness Skin: General skin exam: normal color Rashes: no rashes Wounds: wounds noted (at left second toe: linear wound on medial aspect, and a puncture laterally) Other: The wound on the medial aspect of the left great toe is 15 mm long, the puncture on the lateral aspect of the left great toe is 4 mm long. There is erythema on the toe with tenderness on the toe. Full ROM of the second toe. Neuro: General: patient oriented x3, moves all extremities, no meningeal signs, no focal motor deficits and CN's II-XI intact bilaterally Cranial nerves: Yes Equal, round and reactive pupils present Speech: normal speech Motor exam (neuro): 5/5 motor strength present throughout Sensory Exam: normal sensation Extrem: General: normal to inspection and no clubbing, cyanosis or edema Other: No tenderness or wounds on any other toes except for the left second toe. Psych: Mental Status: mental status grossly normal Affect: normal affect Course Course Emergency Course: Dog bite to the left 2nd toe. X-rays reveal no fracture. Treated in the emergency room with Augmentin. Will continue Augmentin for 10 days. The patient is agreeable with the plan. Tylenol and/or ibuprofen as needed for pain. Discharged home. Medical Decision Making Imaging Data Radiologist's impression: EXAMINATION: XR toe 2nd LT min 2V, 06/16/2025 15:20 CDT HISTORY: Dog bite. Lt. foot, 2nd digit laceration/pain/swelling COMPARISON: No comparisons available. Findings: No acute fracture or malalignment. No significant degenerative changes. Soft tissues unremarkable. Impression: No acute fracture or malalignment. Reviewed, dictated and finalized at location P. Discharge Plan Discharge Clinical Impression: Dog bite of toe Patient Disposition: Home Condition: Stable Instructions: Antibiotic Form, Animal Bite (ED) Additional Instructions: You have a dog bite of the left 2nd toe. You may take Tylenol as much as 1000 mg per dose with ibuprofen as much as 800 mg per dose as often as 4 times a day as needed for pain or discomfort Augmentin antibiotics for the next 10 days to treat the dog bite Weightbearing as tolerated X-rays reveal no injury to the bone Return if worse Patient Language: Yoruba Prescriptions: New amoxicillin-pot clavulanate 875-125 mg tablet 1 tablet PO Q12H Qty: 20 0RF No Action hydrochlorothiazide 12.5 mg tablet 25 mg PO DAILY Rx Instructions: TAKE 1 TABLET BY MOUTH DAILY FOR 3 DAYS, THEN INCREASE TO 2 TABLETS DAILY estradiol 2 mg tablet 2 mg PO DAILY clonazepam 1 mg tablet 1 mg PO DIRECTED venlafaxine [Effexor XR] 75 mg Capsule,Extended Release 24hr 75 mg PO DAILY betamethasone valerate 0.1 % cream 1 applic topical BID PRN (Reason: itching) Qty: 15 1RF Rx Instructions: applied ear canal b.i.d. p.r.n. itching Linzess 145 mcg capsule 145 mcg PO DAILY budesonide-formoterol [Symbicort] 160-4.5 mcg/actuation HFA aerosol inhaler See Rx Instructions .ROUTE .COMPLEX Qty: 10.2 2RF Dose Instruction: INHALE 1 PUFF DAILY TAKE ONE INHALATION ONCE DAILY. Rx Instructions: INHALE 1 PUFF DAILY TAKE ONE INHALATION ONCE DAILY. lisinopril 40 mg tablet See Rx Instructions .ROUTE .COMPLEX Qty: 30 1RF Dose Instruction: TAKE 1 TABLET BY MOUTH EVERY DAY -MONITOR BLOOD PRESSURE 2X DAILY BEFORE COFFEE, STIMULANT, BP MED Rx Instructions: TAKE 1 TABLET BY MOUTH EVERY DAY -MONITOR BLOOD PRESSURE 2X DAILY BEFORE COFFEE, STIMULANT, BP MED albuterol sulfate 90 mcg/actuation HFA aerosol inhaler See Rx Instructions .ROUTE .COMPLEX Qty: 8.5 2RF Dose Instruction: INHALE 2 PUFFS BY MOUTH FOUR TIMES DAILY Rx Instructions: INHALE 2 PUFFS BY MOUTH FOUR TIMES DAILY amlodipine 10 mg tablet 10 mg PO DAILY Qty: 90 0RF acyclovir 400 mg tablet 400 mg PO BID 90 Days Qty: 180 2RF gabapentin 100 mg capsule 100 mg PO QHS Qty: 90 1RF meloxicam 7.5 mg tablet See Rx Instructions .ROUTE .COMPLEX Qty: 60 0RF Dose Instruction: TAKE 2 TABLETS DAILY NEEDED FOR PAIN Rx Instructions: TAKE 2 TABLETS DAILY NEEDED FOR PAIN cyclobenzaprine 7.5 mg tablet See Rx Instructions .ROUTE .COMPLEX Qty: 60 0RF Dose Instruction: TAKE 1 TABLET TWICE DAILY NEEDED FOR MUSCLE SPASMS Rx Instructions: TAKE 1 TABLET TWICE DAILY NEEDED FOR MUSCLE SPASMS Follow-up/Referrals: Treva Martell APRN [Primary Care Provider, Family Practice] - 1 Week Referral Note: Dog bite to the left 2nd toe, treated with Augmentin. Clinical Impression: Dog bite of toe Time of Disposition: 15:41
--- OUTSIDE RECORDS SUMMARY | 2025-06-16 15:30 | XMS_ITS | Clinical Summary ---
Author Organization [facility] Address [address] [place] [address] Care Team Providers Care Metal Shaping Machine Operator Name Role Phone Treva Martell NP Primary Care Provider [phone] Allergies Active Allergy Reactions Criticality Noted Date [...] drink = 0.6 oz pur e alcohol) [facility] Utilities Answer Date Recorded In the past 12 months has [employer], [employer], oil, or water [employer] threatened to shut off services in [...] 04/19/2024 How often do you attend [facility] or caoda[facility] services? Never 04/19/2024 Do you belong to any clubs o r organizations such as moravian groups, unions, fraternal or athletic groups, or [...] on file Legal Sex Female 11:28 AM EMTS Gender Identity Not on file Sexual Orientation [...] Completed 04/18/2024 Medical Devices Implanted Type Area Leather Goods Sales Representative Device Identifier Shelf Expiration Date Model / [...] - 04/18/2024 2:58 PM CDT Bill to [facility] [id number] Patient is employed by/enrolled at:->[employer] Gus Regna MD LAB MICROBIOLOGY - GENERAL OR DERABLES Edited Result - Final [address] [facility] Department [place] [address] from Last 3 Months or Most Recently Relevant to Health Maintenance Insurance [facility] MEDICA[facility] Advance Directives For more information, please contact: [phone] * Full Code (Latest Code Status on File) Date Activated Date Inactivated Comments 04/18/2024 3:12 PM 04/20/2024 2:43 PM Care Teams Metal Shaping Machine Operator Relationship Specialty Start Date End Date Treva Martell NP [address] [place] [address] PCP - General Family Medicine 04/07/24
--- NOTE | 2025-06-16 16:01 | PC.NURSE ---
dog bite report faxed to [facility] animal control
== END 2025-06-16 15:51 | disposition home or self-care (01) ==
PROVIDERS: Emergency Provider Emergency Medicine; PCP Nurse Practitioner Family
DX: S91.155A Open bite of left lesser toe(s) without damage to nail, initial encounter (principal); I10 Essential (primary) hypertension; F17.210 Nicotine dependence, cigarettes, uncomplicated; W54.0XXA Bitten by dog, initial encounter
CPT/HCPCS: 73660; 99283; A9270